=== PATIENT | female | born 1940 | race African-American/Black ===

== ENCOUNTER 2022-05-18 09:44 | Emergency (ER) | payer OTHER ==
[2022-05-18 11:19] LABS: Hematocrit 37.2 % (36.0-45.0); Lymphocytes % 26.5 % (15.3-44.8); MCV 93.6 fL (80-100); MPV 7.5 fL (7.6-11.3); RBC Red Blood Cell Count 3.97 M/uL (3.86-4.86)
--- NOTE | 2022-05-18 11:21 | RAD REPORT ---
EXAM DESCRIPTION: CT - Head C Spine Mpr Wo Con - 05/18/2022 11:12 am CLINICAL HISTORY: Head and neck injury status post fall. Head and neck pain COMPARISON: None. TECHNIQUE: Computed axial tomography of the head and cervical spine was obtained. Sagittal and coronal reconstruction was performed. All CT scans are performed using dose optimization technique as appropriate and may include automated exposure control or mA/KV adjustment according to patient size. 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 The ventricles are normal in caliber. An extra-axial fluid collect ion is not noted.Fluid within the visualized sinuses and mastoids is not seen A cervical fracture is not visualized. No dislocation is noted. IMPRESSION: No acute intracranial abnormality is seen. A cervical fracture is not visualized. If the patient continues to have symptoms to suggest intracra nial /spinal cord pathology then MRI would be recommended
[2022-05-18 11:39] LABS: Albumin 3.4 g/dL (3.4-5.0); Bilirubin Direct 0.1 mg/dL (0-0.2); Bilirubin Total 0.3 mg/dL (0.2-1.0); Potassium 3.8 mmol/L (3.5-5.1); Troponin High Sensitivity 18.1 pg/mL (<58.9)
--- NOTE | 2022-05-18 12:11 | RAD REPORT ---
EXAM DESCRIPTION: Kushal Single View05/18/2022 10:36 am CLINICAL HISTORY: Chest pain COMPARISON: none FINDINGS: 3 centimeter opacity overlies the medial right lung base The remainder of the lungs appear clear. Heart is normal size IMPRESSION: A 3 centimeter opacity overlies the medial right lung base. This may represent an infilt rate, mass or confluence of ribs and vessels. Further evaluation with an unenhanced CT chest would he lpful.
[2022-05-18] MEDS ORDERED: TETANUS & DIPHTHERIA TOX,ADULT 0.5 ML VIAL ONE (12:33)
--- NOTE | 2022-05-18 12:56 | RAD REPORT ---
EXAM DESCRIPTION: CT - Thorax Wo Con - 05/18/2022 12:35 pm CLINICAL HISTORY: Fall, 3 cm opacity right medial lung COMPARISON: Chest Single View dated 05/18/2022 TECHNIQUE: Axial 5 mm thick images of the chest were obtained without IV contrast. All CT scans are performed using dose optimization technique as appropriate and may include automated exposure control or mA/KV adjustment according to patient size. FINDINGS: Lung volumes are improved compared to the earlier portable study. The right lung base opac ification does not have a correlate on this examination and was probably atelectasis. There is no inf iltrate, mass or acute lung parenchymal process seen. No pleural thickening or pleural effusion. No p neumothorax. No abnormal mediastinal or hilar masses or lymphadenopathy seen. No gross aortic or pulmonary artery finding suspected. No cardiomegaly or pericardial effusion. Assessment is limited in the absence of I V contrast. No chest wall mass or abnormal axillary lymphadenopathy. No displaced rib fractures are present. No n ondisplaced rib fractures confirmed. No measurable contusion in the subcutaneous fatty tissues. Thoracic spine degenerative changes are present with no acute finding. No pathologic bone changes. Limited upper abdomen imaging shows no gross abnormality. IMPRESSION: No acute or suspicious lung parenchymal process. Medial right base finding on the earlie r chest film is believed to been atelectasis.
[2022-05-18] MEDS ORDERED: LIDOCAINE 1% MPF 5 ML VIAL ONE (13:59)
--- NOTE | 2022-05-18 14:44 | EDPHYS ---
Physician Documentation [facility] Name: Lizbeth Snow Age: 82 yrs Sex: Female : 1940 Arrival Date: 05/18/2022 Time: 09:54 Bed 19 Private MD: ED Physician Wyatt Sevilla HPI: 05/18 10:16 This 82 yrs old Black Female presents to ER via EMS with complaints of Fall Injury. pm1 10:16 Details of fall: The patient fell from an upright position, while standing, and struck pm1 Against the wall in the bathroom. Onset: The symptoms/episode began/occurred just prior to arrival. Associated injuries: The patient sustained injury to the head, laceration, of the left temporal area. Severity of symptoms: in the emergency department the symptoms have improved, Bleeding controlled with pressure dressing. It is unknown whether or not the patient has had similar symptoms in the past. The patient has not recently seen a physician. 82-year-old patient [facility] presents to the ER with complaints of laceration to left side of head. Patient was in the bathroom and apparently ambulating out with her walker after using the restroom. Patient fell and hit her head against the wall according to report from EMS. Patient with no known LOC. Patient without headache, neck pain, chest pain, shortness of breath. Patient also denies any pain. Historical: - Allergies: 10:00 PENICILLINS; bp - PMHx: 10:00 Congestive heart failure; Hypercholesterolemia; Depressive disorder; Dementia; Coronary bp atherosclerosis; Hypertensive disorder; - Immunization history: Last tetanus immunization: - up to date. - Social history:: Smoking status: Patient denies any tobacco usage or history of. ROS: 10:16 Constitutional: Negative for fever, chills, and weight loss, Neck: Negative for injury, pm1 pain, and swelling, Cardiovascular: Negative for chest pain, palpitations, and edema, Respiratory: Negative for shortness of breath, cough, wheezing, and pleuritic chest pain, Abdomen/GI: Negative for abdominal pain, nausea, vomiting, diarrhea, and constipation, Back: Negative for injury and pain, MS/Extremity: Negative for injury and deformity, Skin: Negative for injury, rash, and discoloration, Neuro: Negative for headache, weakness, numbness, tingling, and seizure. 10:16 All other systems are negative. Exam: 10:16 Constitutional: This is a well developed, well nourished patient who is awake, alert, pm1 and in no acute distress. 10:16 Back: No spinal tenderness. No costovertebral tenderness. Full range of motion. Skin: Warm, dry with normal turgor. Normal color with no rashes, no lesions, and no evidence of cellulitis. Injury as noted in head examination MS/ Extremity: Pulses equal, no cyanosis. Neurovascular intact. Full, normal range of motion. 10:16 Head/face: Noted is no obvious of injury or deformity except a laceration(s), of the left temporal area. 10:16 Eyes: Exam is negative for acute changes, Periorbital structures: no acute changes, Pupils: no acute changes, Extraocular movements: no acute changes, Conjunctiva: no acute changes, no injection. 10:16 ENT: Exam is negative for acute changes, External ear(s): no acute changes, Ear canal(s): no acute changes, TM's: no acute changes, Mouth: no acute changes, Lips: normal, moist, Oral mucosa: normal, pink and intact, moist. 10:16 Neck: Exam negative for acute changes, External neck: tenderness, is not appreciated, ROM/movement: is normal. 10:16 Chest/axilla: Exam negative for acute changes, Inspection: normal, Palpation: is normal, no tenderness. 10:16 Cardiovascular: Exam negative for acute changes, Rate: tachycardic, actual rate is 58 bpm, Rhythm: regular, Pulses: no pulse deficits are appreciated, Edema: is not appreciated. 10:16 Respiratory: Exam negative for acute changes, the patient does not display signs of respiratory distress, Respirations: normal, Breath sounds: are clear throughout. 10:16 Abdomen/GI: Exam negative for acute changes, Inspection: abdomen appears normal, Palpation: abdomen is soft and non-tender, in all quadrants. 10:16 Neuro: Exam negative for acute changes, Orientation: to person, Baseline according to EMS report. Mentation: is normal, Motor: moves all fours. Vital Signs: 09:55 BP 170 / 98; Pulse 58; Resp 16; Temp 98; Pulse Ox 100% ; bp 11:00 BP 187 / 77; Pulse 57; Resp 16; Pulse Ox 99% ; bp 12:30 BP 181 / 64; Pulse 55; Resp 16; Pulse Ox 99% ; bp 14:00 BP 191 / 64; Pulse 59; Resp 16; Pulse Ox 100% ; bp [place] Coma Score: 09:55 Eye Response: spontaneous(4). Verbal Response: confused(4). Motor Response: obeys bp commands(6). Total: 14. Trauma Score (Adult): 09:55 Eye Response: spontaneous(1); Verbal Response: confused(1); Motor Response: obeys bp commands(2); Systolic BP: > 89 mm Hg(4); Respiratory Rate: 10 to 29 per min(4); [place] Score: 14; Trauma Score: 12 MDM: 09:57 Patient medically screened. pm1 14:42 Data reviewed: vital signs. Data interpreted: Pulse oximetry: on room air is 100 %. pm1 Interpretation: normal. Counseling: I had a detailed discussion with the patient and/or guardian regarding: the historical points, exam findings, and any diagnostic results supporting the discharge/admit diagnosis, lab results, radiology results, the need for outpatient follow up, to return to the emergency department if symptoms worsen or persist or if there are any questions or concerns that arise at home. 05/18 10:07 Order name: Basic Metabolic Panel; Complete Time: 11:47 pm05/18 10:07 Order name: CBC with Diff; Complete Time: 11:47 pm05/18 10:07 Order name: CT Head C Spine; Complete Time: 11:47 pm05/18 10:07 Order name: LFT's; Complete Time: 11:47 pm05/18 10:07 Order name: NT PRO-BNP; Complete Time: 11:47 pm05/18 10:07 Order name: Troponin HS; Complete Time: 11:47 pm05/18 10:07 Order name: XRAY Chest (1 view); Complete Time: 12:11 pm05/18 10:07 Order name: EKG; Complete Time: 10:08 pm05/18 10:07 Order name: Cardiac monitoring; Complete Time: 11:02 pm05/18 10:07 Order name: EKG - Nurse/Tech; Complete Time: 11:59 pm05/18 10:07 Order name: IV Saline Lock; Complete Time: 11:02 pm05/18 12:14 Order name: CT Chest Wo Con; Complete Time: 13:19 pm1 05/18 10:07 Order name: Labs collected and sent; Complete Time: 11:02 pm1 Administered Medications: 12:30 Drug: Tetanus-Diphtheria Toxoid Adult 0.5 ml {Account Manager Trainee: [employer]. Exp: bp 01/29/2024. Lot #: [id number]. } Route: IM; Site: right deltoid; 13:54 Follow up: Response: No adverse reaction bp 13:54 Drug: Lidocaine (1 %) 5 ml Volume: 5 ml; Route: Infiltration; bp Disposition Summary: 05/18/22 14:43 Discharge Ordered Location: Home pm1 Problem: new pm1 Symptoms: have improved pm1 Condition: Stable pm1 Diagnosis - Laceration without foreign body of scalp pm1 - Fall on same level, unspecified pm1 Followup: pm1 - With: Emergency Department - When: As needed - Reason: Worsening of condition Followup: pm1 - With: Private Physician - When: 2 - 3 days - Reason: Recheck today's complaints, Continuance of care, Re-evaluation by your physician Discharge Instructions: - Discharge Summary Sheet pm1 - Fall Prevention in the Home, Adult pm1 - Laceration Care, Adult pm1 Forms: - Medication Reconciliation Form pm1 - Thank You Letter pm1 - Family Work Release em1 - Antibiotic Education pm1 - Prescription Opioid Use pm1 Signatures: Dispatcher [employer] EDMS Tray Jarrell, ROSIE INFORMATION BROKER pm1 Nicholas Gonzalez, RN RN bp Corrections: (The following items were deleted from the chart) 10:01 10:00 Allergies: No Known Allergies; bp bp 10:01 10:00 PMHx: None; bp bp
--- NOTE | 2022-05-18 14:44 | ER ---
Nurse's Notes [facility] Name: Lizbeth Snow Age: 82 yrs Sex: Female : 1940 Arrival Date: 05/18/2022 Time: 09:54 Bed 19 Private MD: Diagnosis: Laceration without foreign body of scalp;Fall on same level, unspecified Presentation: 05/18 09:55 Chief complaint: EMS states: UNWITNESSED FALL IN BATHROOM AT RETIREMENT. Care prior bp to arrival: None. Mechanism of Injury: Fall from standing position. Trauma event details: Injury occurred in the [facility], Injury occurred: RETIREMENT Injury occurred: May 18, 2022 Injury occurred at: 09:00. 09:55 Acuity: DREW 3 bp 09:55 Method Of Arrival: EMS: [facility] bp 09:59 Coronavirus screen: At this time, the client does not indicate any symptoms associated bp with coronavirus-19. Ebola Screen: No symptoms or risks identified at this time. Initial Sepsis Screen: Does the patient meet any 2 criteria? No. Patient's initial sepsis screen is negative. Does the patient have a suspected source of infection? No. Patient's initial sepsis screen is negative. Risk Assessment: Do you want to hurt yourself or someone else? Patient reports no desire to harm self or others. Onset of symptoms was May 18, 2022 at 09:00. Trauma Activation: Not Applicable Physician: ED Physician; Name: ; Notified At: ; Arrived At: Physician: General Surgeon; Name: ; Notified At: ; Arrived At: Physician: Radiology; Name: ; Notified At: ; Arrived At: Physician: Respiratory; Name: ; Notified At: ; Arrived At: Physician: Lab; Name: ; Notified At: ; Arrived At: Historical: - Allergies: 10:00 PENICILLINS; bp - PMHx: 10:00 Congestive heart failure; Hypercholesterolemia; Depressive disorder; Dementia; Coronary bp atherosclerosis; Hypertensive disorder; - Immunization history: Last tetanus immunization: - up to date. - Social history:: Smoking status: Patient denies any tobacco usage or history of. Screenin:55 Abuse screen: Denies threats or abuse. Denies injuries from another. Tuberculosis bp screening: No symptoms or risk factors identified. 10:01 Nutritional screening: No deficits noted. Fall Risk None identified. bp Primary Survey: 09:55 NO uncontrolled hemorrhage observed. A: The client is alert. Airway: patent, No bp supplemental oxygen in use on arrival. Breathing/Chest: Respiratory effort: spontaneous, unlabored, Breath sounds: clear, bilaterally. Respiratory pattern: regular. Circulation: Skin color: pink, Skin temperature: warm. Disability Client is alert. Exposure/Environment: There is no evidence of uncontrolled external bleeding. Obvious injury(ies) are noted at this time: LEFT SCALP ABRASION. 15:18 Reassessment Breathing: Spontaneous respiratory effort, equal unlabored respirations, bp breath sounds clear bilaterally, regular pattern with symmetrical chest rise and fall. Assessment: 09:55 General: Appears in no apparent distress. Behavior is calm, cooperative. Pain: Denies bp pain. Neuro: Level of Consciousness is awake, obeys commands, confused, Oriented to person, place. EENT: No deficits noted. Cardiovascular: No deficits noted. Respiratory: No deficits noted. GI: No signs and/or symptoms were reported involving the gastrointestinal system. : No signs and/or symptoms were reported regarding the genitourinary system. Derm: No deficits noted. Musculoskeletal: No deficits noted. Injury Description: Abrasion sustained to scalp. 12:30 Reassessment: No changes from previously documented assessment. Patient and/or family bp updated on plan of care and expected duration. Pain level reassessed. PT RETURNED FROM CT. 14:16 Reassessment: ALL STUDIES COMPLETE, LAC REPAIR PENDING. bp 15:17 Reassessment: PT DC WITH FAMILY. bp Vital Signs: 09:55 BP 170 / 98; Pulse 58; Resp 16; Temp 98; Pulse Ox 100% ; bp 11:00 BP 187 / 77; Pulse 57; Resp 16; Pulse Ox 99% ; bp 12:30 BP 181 / 64; Pulse 55; Resp 16; Pulse Ox 99% ; bp 14:00 BP 191 / 64; Pulse 59; Resp 16; Pulse Ox 100% ; bp [place] Coma Score: 09:55 Eye Response: spontaneous(4). Verbal Response: confused(4). Motor Response: obeys bp commands(6). Total: 14. Trauma Score (Adult): 09:55 Eye Response: spontaneous(1); Verbal Response: confused(1); Motor Response: obeys bp commands(2); Systolic BP: > 89 mm Hg(4); Respiratory Rate: 10 to 29 per min(4); [place] Score: 14; Trauma Score: 12 ED Course: 09:54 Patient arrived in ED. bp 09:55 Patient has correct armband on for positive identification. Bed in low position. Call bp light in reach. Side rails up X2. 09:55 Patient maintains SpO2 saturation greater than 95% on room air. Thermoregulation: warm bp blanket given to patient. 09:56 Triage completed. bp 09:57 Tray Jarrell NP is PHCP. pm1 09:57 Wyatt Sevilla MD is Attending Physician. pm1 10:00 Arm band placed on. bp 10:36 Nicholas Gonzalez, SHANNON is Primary Nurse. bp 10:37 XRAY Chest (1 view) In Process Unspecified. EDMS 11:00 Inserted saline lock: 22 gauge in right forearm, using aseptic technique. Blood bp collected. 11:14 CT Head C Spine In Process Unspecified. EDMS 12:37 CT Chest Wo Con In Process Unspecified. EDMS 15:17 Assist provider with laceration repair on scalp that was 2.5 cm. or less using alexandra. bp Set up tray. Performed by Tray Jarrell INTRUSION ANALYST Dressed with 4X4s, Patient tolerated well. IV discontinued, intact, bleeding controlled, No redness/swelling at site. Pressure dressing applied. Administered Medications: 12:30 Drug: Tetanus-Diphtheria Toxoid Adult 0.5 ml {Church Worker: [employer]. Exp: bp 01/29/2024. Lot #: [id number]. } Route: IM; Site: right deltoid; 13:54 Follow up: Response: No adverse reaction bp 13:54 Drug: Lidocaine (1 %) 5 ml Volume: 5 ml; Route: Infiltration; bp Medication: 10:01 VIS not applicable for this client. bp Intake: 09:55 PO: 0ml; Total: 0ml. bp Outcome: 14:43 Discharge ordered by . pm1 15:17 Discharged to home via wheelchair, with family. bp 15:17 Condition: stable 15:17 Discharge instructions given to patient, family, Instructed on discharge instructions, follow up and referral plans. wound care, Demonstrated understanding of instructions, follow-up care, wound care. 15:18 Patient's length of stay was not longer than 2 hours. bp 15:19 Patient left the ED. bp Signatures: Dispatcher [employer] EDMS Tray Jarrell, INTRUSION ANALYST INTRUSION ANALYST pm1 Nicholas Gonzalez, RN RN bp Corrections: (The following items were deleted from the chart) : 10:00 Allergies: No Known Allergies; bp bp 10: 10:00 PMHx: None; bp bp
[2022-05-18 15:29] VITALS: TEMP 98
[2022-05-18 15:34] VITALS: BP 191/64; O2SAT 100
--- NOTE | 2022-05-19 13:07 | EKG ---
Test Date: 2022-05-18 Test Time: 11:56:35 [place] Equipment Repairer: BP MEASUREMENT RESULTS: Intervals: Rate: 57 MT: 164 QRSD: 86 QT: 424 QTc: 412 [place]: P: 53 MT: 164 QRS: -21 T: -2 INTERPRETIVE STATEMENTS: Sinus bradycardia Voltage criteria for left ventricular hypertrophy Nonspecific T wave abnormality Abnormal ECG No previous ECG available for comparison Electronically Signed On 05-19-22 13:05:45 CDT by Delvin Mendoza
== END 2022-05-18 15:19 | disposition home or self-care (01) ==
LOC: ER 09:44
PROC: 0JQ00ZZ Repair Scalp Subcutaneous Tissue and Fascia, Open Approach (ICD-10-PCS; principal; 2022-05-18)
DX: S01.01XA Laceration without foreign body of scalp, initial encounter (principal); W18.30XA Fall on same level, unspecified, initial encounter; Z23 Encounter for immunization; I10 Essential (primary) hypertension; I50.9 Heart failure, unspecified; F03.90 Unspecified dementia, unspecified severity, without behavioral disturbance, psychotic disturbance, mood disturbance, and anxiety; Z88.0 Allergy status to penicillin
CPT/HCPCS: 36415; 70450; 71045; 71250; 72125; 80048; 80076; 83880; 84484; 85025; 90714; 93005

== ENCOUNTER 2022-09-29 20:42 | Emergency (ER) | payer OTHER ==
[2022-09-29] MEDS ORDERED: TETANUS & DIPHTHERIA TOX,ADULT 0.5 ML VIAL ONE (21:04)
[2022-09-29] MEDS ORDERED: LIDOCAINE 1% MPF 5 ML VIAL ONE (21:04)
--- NOTE | 2022-09-29 21:38 | RAD REPORT ---
EXAM DESCRIPTION: CT - Head C Spine Mpr Wo Con - 09/29/2022 9:17 pm CLINICAL HISTORY: Head and neck injury status post fall. Head and neck pain COMPARISON: May 2022 TECHNIQUE: Computed axial tomography of the head and cervical spine was obtained. Sagittal and coronal reconstruction was performed. All CT scans are performed using dose optimization technique as appropriate and may include automated exposure control or mA/KV adjustment according to patient size. 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 Left frontal scalp swelling. An intracranial bleed is not seen. The ventricles are normal in caliber. An extra-axial fluid collect ion is not noted.Fluid within the visualized sinuses and mastoids is not seen A cervical fracture is not visualized. No dislocation is noted. Slight posterior subluxation C3 on C4. Small central disc herniation C3-4. Spondylosis cervical spine . Thyroid goiter. IMPRESSION: No acute intracranial abnormality is seen. A cervical fracture is not visualized. If the patient continues to have symptoms to suggest intracranial /spinal cord pathology then MRI wou ld be recommended
--- NOTE | 2022-09-29 23:00 | EDPHYS ---
Physician Documentation [facility] Name: Lizbeth Snow Age: 82 yrs Sex: Female : 1940 Arrival Date: 09/29/2022 Time: 20:47 Bed 19 Private MD: ED Physician Elias Cabral HPI: 09/29 21:09 This 82 yrs old Black Female presents to ER via EMS with complaints of Fall Injury. pm1 21:09 Details of fall: The patient fell from a height, bed. Onset: The symptoms/episode pm1 began/occurred just prior to arrival. Associated injuries: The patient sustained injury to the head, contusion, laceration, of the forehead. It is unknown whether or not the patient has had similar symptoms in the past. The patient has not recently seen a physician. Patient rolled out of bed in [facility] resulting in laceration and contusion to forehead. Patient is at baseline mentation per EMS from [facility] . Historical: - Allergies: 21:00 PENICILLINS; as6 - PMHx: 21:00 Congestive heart failure; coronary atherosclerosis; Dementia; depressive disorder; as6 Hypercholesterolemia; Hypertensive disorder; - Immunization history:: Adult Immunizations up to date. - Social history:: Smoking status: Patient denies any tobacco usage or history of. - Immunization history: Last tetanus immunization: unknown. ROS: 21:09 Constitutional: Negative for fever, chills, and weight loss, Cardiovascular: Negative pm1 for chest pain, palpitations, and edema, Respiratory: Negative for shortness of breath, cough, wheezing, and pleuritic chest pain, MS/Extremity: Negative for injury and deformity. 21:09 Neuro: Negative for headache, weakness, numbness, tingling, and seizure. 21:09 Skin: Positive for laceration(s), swelling, of the forehead. 21:09 All other systems are negative. Exam: 21:09 Constitutional: This is a well developed, well nourished patient who is awake, alert, pm1 and in no acute distress. 21:09 MS/ Extremity: Pulses equal, no cyanosis. Neurovascular intact. Full, normal range of motion. 21:09 Head/face: Noted is no obvious of injury or deformity except contusion, that is superficial, of the forehead, a laceration(s), 2 cm(s), of the forehead. 21:09 Eyes: Exam is negative for acute changes. 21:09 ENT: Exam is negative for acute changes, External ear(s): no acute changes, Ear canal(s): no acute changes, TM's: no acute changes. 21:09 Neck: Exam negative for acute changes, C-spine: vertebral tenderness, is not appreciated. 21:09 Cardiovascular: Exam negative for acute changes, Rate: normal, Rhythm: regular, Pulses: no pulse deficits are appreciated, Edema: is not appreciated. 21:09 Respiratory: Exam negative for acute changes, respiratory distress, shortness of breath. 21:09 Abdomen/GI: Inspection: abdomen appears normal, Palpation: abdomen is soft and non-tender, in all quadrants. 21:09 Skin: Appearance: normal except for affected area, injury, contusion(s), that are superficial, of the forehead, laceration(s), the wound is approximately 2 cm(s), of the forehead, that can be described as clean, no foreign body, irregular, without bleeding. 21:09 Neuro: Exam negative for acute changes. Vital Signs: 21:10 BP 140 / 40; Pulse 78; Resp 16 S; Temp 97.9; Pulse Ox 99% on R/A; Weight 72.57 kg; as6 Height 5 ft. 6 in. (167.64 cm); 21:57 BP 139 / 47; Pulse 77; Resp 18 S; Pulse Ox 99% on R/A; as6 23:00 BP 145 / 56; Pulse 78; Resp 16 S; Pulse Ox 100% on R/A; as6 21:10 Body Mass Index 25.82 (72.57 kg, 167.64 cm) as6 [place] Coma Score: 21:11 Eye Response: to voice(3). Verbal Response: confused(4). Motor Response: obeys as6 commands(6). Total: 13. Trauma Score (Adult): 21:11 Eye Response: to voice(0); Verbal Response: confused(1); Motor Response: obeys as6 commands(2); Systolic BP: > 89 mm Hg(4); Respiratory Rate: 10 to 29 per min(4); [place] Score: 13; Trauma Score: 11 Laceration: 22:58 Wound Repair of 2cm ( 0.8in ) subcutaneous laceration to forehead. Irregularly shaped.. pm1 Distal neuro/vascular/tendon intact. Anesthesia: Local anesthetic administered with 3 mls of 1% lidocaine. Wound prep: Extensive cleansing with hibiclenz by nurse, Wound irrigation with saline by nurse, Wound explored extensively, Copious irrigation. Skin closed with 5 5-0 Prolene using simple sutures and sterile technique. Dressed with 4x4's, Kerlix. Patient tolerated well. MDM: 20:48 Patient medically screened. pm1 22:58 Data reviewed: vital signs. Data interpreted: Pulse oximetry: on room air is 99 %. pm1 Interpretation: normal. 23:02 Counseling: I had a detailed discussion with the patient and/or guardian regarding: No pm1 primary contact present on transfer paper work and shown to the RN. Requested her to inform the [facility] of the results and report to the PCP and family. 09/29 21:15 Order name: Head C Spine Mpr Wo Con; Complete Time: 22:01 EDMS 09/29 20:48 Order name: Dressing - Wound; Complete Time: 23:28 pm1 09/29 20:48 Order name: Gloves, Sterile; Complete Time: 21:09 pm1 09/29 20:48 Order name: Prolene, Sutures; Complete Time: 22:57 pm1 09/29 20:48 Order name: Setup Suture Tray; Complete Time: 21:09 pm1 Administered Medications: 21:09 Drug: Tetanus-Diphtheria Toxoid Adult 0.5 ml {Credit Portfolio Manager: [employer]. Exp: as6 03/11/2024. Lot #: [id number]. } Route: IM; Site: right deltoid; 23:08 Follow up: Response: No adverse reaction as6 22:56 Drug: Lidocaine (1 %) 5 ml {Note: administered by provider .} Volume: 5 ml; Route: as6 Infiltration; 23:08 Follow up: Response: No adverse reaction as6 Disposition: 09/30 03:15 Co-signature as Attending Physician, Elias Cabral MD. rn Disposition Summary: 09/29/22 22:59 Discharge Ordered Location: Home pm1 Problem: new pm1 Symptoms: have improved pm1 Condition: Stable pm1 Diagnosis - Fall from bed, initial encounter pm1 - Laceration without foreign body of scalp pm1 Followup: pm1 - With: Emergency Department - When: As needed - Reason: Worsening of condition Followup: pm1 - With: Private Physician - When: 2 - 3 days - Reason: Recheck today's complaints, Continuance of care, Re-evaluation by your physician Discharge Instructions: - Discharge Summary Sheet pm1 - Facial Laceration pm1 - Fall Prevention in Hospitals, Adult pm1 Forms: - Medication Reconciliation Form pm1 - Thank You Letter pm1 - Antibiotic Education pm1 - Prescription Opioid Use pm1 Signatures: Dispatcher [employer] EDMS Elias Cabral MD MD rn Marinas, Patrick, NP TUBE FILLER pm1 Jose Luis Elder RN RN as6
--- NOTE | 2022-09-29 23:00 | ER ---
Nurse's Notes [facility] Name: Lizbeth Snow Age: 82 yrs Sex: Female : 1940 Arrival Date: 09/29/2022 Time: 20:47 Bed 19 Private MD: Diagnosis: Fall from bed, initial encounter;Laceration without foreign body of scalp Presentation: 09/29 20:52 Chief complaint: EMS states: patient rolled out of bed at the long-term. Care prior kr3 to arrival:. Care prior to arrival: None. Mechanism of Injury: Fall. Trauma event details: Injury occurred in the [facility], Injury occurred: in an institution. 20:52 Acuity: DREW 3 kr3 20:52 Method Of Arrival: EMS kr3 21:12 Coronavirus screen: At this time, the client does not indicate any symptoms associated as6 with coronavirus-19. Ebola Screen: No symptoms or risks identified at this time. Initial Sepsis Screen: Does the patient meet any 2 criteria? No. Patient's initial sepsis screen is negative. Does the patient have a suspected source of infection? No. Patient's initial sepsis screen is negative. Risk Assessment: Do you want to hurt yourself or someone else? Patient reports no desire to harm self or others. Onset of symptoms was September 29, 2022. Trauma Activation: Alert Physician: ED Physician; Name: ; Notified At: ; Arrived At: Physician: General Surgeon; Name: ; Notified At: ; Arrived At: Physician: Radiology; Name: ; Notified At: ; Arrived At: Physician: Respiratory; Name: ; Notified At: ; Arrived At: Physician: Lab; Name: ; Notified At: ; Arrived At: Historical: - Allergies: 21:00 PENICILLINS; as6 - PMHx: 21:00 Congestive heart failure; coronary atherosclerosis; Dementia; depressive disorder; as6 Hypercholesterolemia; Hypertensive disorder; - Immunization history:: Adult Immunizations up to date. - Social history:: Smoking status: Patient denies any tobacco usage or history of. - Immunization history: Last tetanus immunization: unknown. Screenin:11 Abuse screen: Denies threats or abuse. Denies injuries from another. Nutritional as6 screening: No deficits noted. Tuberculosis screening: No symptoms or risk factors identified. Fall Risk Fall in past 12 months (25 points). Total Pelletier Fall Scale indicates Low Risk Score (25-44 pts). Side Rails Up X 2. Primary Survey: 20:55 NO uncontrolled hemorrhage observed. Breathing/Chest: Spontaneous respiratory effort, kr3 equal unlabored respirations, breath sounds clear bilaterally, regular pattern, symmetrical chest rise and fall. Circulation: No external hemorrhage present. Regular and strong central pulse, skin warm/dry/normal color. Disability Client is alert. 21:13 Exposure/Environment: A warming method has been applied: A warm blanket has been as6 provided to the patient. Reassessment Alertness and Airway: Awake and alert. The airway is patent. Breathing: Spontaneous respiratory effort, equal unlabored respirations, breath sounds clear bilaterally, regular pattern with symmetrical chest rise and fall. Circulation: No external hemorrhage noted. Regular and strong central pulse, skin warm/dry/normal color. Disability: Pupils Pupils are equal, round, reactive to light and accomodation. Alert. Assessment: 20:53 General: Appears in no apparent distress. comfortable, Behavior is calm, cooperative. kr3 Pain: Unable to use pain scale. Does not appear to understand pain scale. Neuro: Level of Consciousness is awake, alert. EENT: No signs and/or symptoms were reported regarding the EENT system. Cardiovascular: Patient's skin is warm and dry. Respiratory: Airway is patent Respiratory effort is even, unlabored, Respiratory pattern is regular, symmetrical. GI: No signs and/or symptoms were reported involving the gastrointestinal system. : No signs and/or symptoms were reported regarding the genitourinary system. 21:10 Derm: Wound noted forehead Wound is laceration. as6 21:21 Neuro: Level of Consciousness is Oriented to person, pt at baseline per EMS and nursing as6 home nurse . 21:58 Reassessment: Patient appears in no apparent distress at this time. as6 23:06 General: discharge pending transportation. report given to SHANITA Brooks from [facility] long-term. Nurse said transportation would be arranged . Vital Signs: 21:10 BP 140 / 40; Pulse 78; Resp 16 S; Temp 97.9; Pulse Ox 99% on R/A; Weight 72.57 kg; as6 Height 5 ft. 6 in. (167.64 cm); 21:57 BP 139 / 47; Pulse 77; Resp 18 S; Pulse Ox 99% on R/A; as6 23:00 BP 145 / 56; Pulse 78; Resp 16 S; Pulse Ox 100% on R/A; as6 21:10 Body Mass Index 25.82 (72.57 kg, 167.64 cm) as6 Laney Coma Score: 21:11 Eye Response: to voice(3). Verbal Response: confused(4). Motor Response: obeys as6 commands(6). Total: 13. Trauma Score (Adult): 21:11 Eye Response: to voice(0); Verbal Response: confused(1); Motor Response: obeys as6 commands(2); Systolic BP: > 89 mm Hg(4); Respiratory Rate: 10 to 29 per min(4); [place] Score: 13; Trauma Score: 11 ED Course: 20:47 Patient arrived in ED. wm 20:47 Tray Jarrell NP is PHCP. pm1 20:47 Elias Cabral MD is Attending Physician. pm1 20:53 Triage completed. kr3 20:59 Jose Luis Elder, SHANNON is Primary Nurse. as6 21:00 Arm band placed on. as6 21:12 Placed in gown. Bed in low position. Call light in reach. Side rails up X2. as6 21:13 Patient maintains SpO2 saturation greater than 95% on room air. as6 21:13 Thermoregulation: warm blanket given to patient. as6 21:19 Head C Spine Mpr Wo Con In Process Unspecified. EDMS 22:57 Assist provider with laceration repair on forehead that was between 2.6 to 7.5 cm using as6 sutures. Set up tray. Performed by Tray Jarrell CLOCKMAKER Dressed with 4X4s, Patient tolerated well. Wound care: to laceration located on forehead was cleaned with soap and water. 23:08 Patient did not have IV access during this emergency room visit. as6 Administered Medications: 21:09 Drug: Tetanus-Diphtheria Toxoid Adult 0.5 ml {Rn Admission: [employer]. Exp: as6 03/11/2024. Lot #: [id number]. } Route: IM; Site: right deltoid; 23:08 Follow up: Response: No adverse reaction as6 22:56 Drug: Lidocaine (1 %) 5 ml {Note: administered by provider .} Volume: 5 ml; Route: as6 Infiltration; 23:08 Follow up: Response: No adverse reaction as6 Medication: 21:12 Vaccine Information Statement (VIS) provided today. Questions and/or concerns as6 addressed. VIS edition date: June 11, 2021. Intake: 21:13 PO: 0ml; Total: 0ml. as6 Outcome: 22:59 Discharge ordered by . pm1 23:07 Discharged to long-term. as6 23:07 Condition: stable 23:07 Patient's length of stay in the Emergency Department was greater than 2 hours. pending transportation back to long-term Patient's length of stay extended due to 23:28 Discharge instructions given to long-term, EMS, Instructed on discharge as6 instructions, follow up and referral plans. wound care, Demonstrated understanding of instructions, follow-up care, wound care. 23:28 Patient left the ED. as6 Signatures: Dispatcher [employer] EDMS Tray Jarrell NP CLOCKMAKER pm1 Marybeth Crews Ashby, RN RN as6 Charis Patrick RN RN kr3
[2022-09-29 23:33] VITALS: TEMP 97.9
[2022-09-29 23:35] VITALS: BP 145/56; O2SAT 100
== END 2022-09-29 23:28 | disposition home or self-care (01) ==
LOC: ER 20:42
PROC: 0JQ00ZZ Repair Scalp Subcutaneous Tissue and Fascia, Open Approach (ICD-10-PCS; principal; 2022-09-29)
DX: S01.01XA Laceration without foreign body of scalp, initial encounter (principal); W06.XXXA Fall from bed, initial encounter; Z23 Encounter for immunization; Z88.0 Allergy status to penicillin; I10 Essential (primary) hypertension; F03.90 Unspecified dementia, unspecified severity, without behavioral disturbance, psychotic disturbance, mood disturbance, and anxiety
CPT/HCPCS: 70450; 72125; 90471; 90714; 99284; 12001; J2001

== ENCOUNTER 2022-11-21 22:03 | Inpatient (IN) | payer OTHER ==
--- NOTE | 2022-11-21 22:33 | RAD REPORT ---
EXAM DESCRIPTION: RAD - Pelvis - 11/21/2022 10:26 pm CLINICAL HISTORY: fall COMPARISON: No comparisons FINDINGS: Mildly impacted subcapital fracture of the proximal left femur is seen. Large calcified fi broids in the pelvis. No dislocation. IMPRESSION: Subcapital fracture proximal left femur.
--- NOTE | 2022-11-21 22:33 | RAD REPORT ---
EXAM DESCRIPTION: RAD - Chest Single View - 11/21/2022 10:26 pm CLINICAL HISTORY: fall Chest pain. COMPARISON: Chest Single View dated 05/18/2022 FINDINGS: Portable technique limits examination quality. The lungs are grossly clear. The heart is normal in size. No displaced fractures. IMPRESSION: No acute intrathoracic process suspected.
--- NOTE | 2022-11-21 22:34 | RAD REPORT ---
EXAM DESCRIPTION: RAD - Hip Left 2 View - 11/21/2022 10:26 pm CLINICAL HISTORY: fall COMPARISON: No comparisons FINDINGS: Subcapital fracture is seen of the proximal left femur with varus angulation. No dislocati on evident.
[2022-11-21] MEDS ORDERED: MORPHINE 2 MG/ML SYR ONE (22:52)
[2022-11-21 23:12] LABS: Absolute Lymphocytes (CBC) 0.5 K/uL (0.7-4.9); Hematocrit 38.1 % (36.0-45.0); Lymphocytes % 4.6 % (15.3-44.8); MCV 93.2 fL (80-100); MPV 7.7 fL (7.6-11.3); Protime INR 1.04; RBC Red Blood Cell Count 4.09 M/uL (3.86-4.86)
[2022-11-21 23:24] LABS: Magnesium 1.8 mg/dL (1.6-2.4); Potassium 3.6 mmol/L (3.5-5.1)
[2022-11-21 23:25] LABS: SARS-CoV-2 Antigen Rapid Res Negative (Negative)
[2022-11-21 23:56] LABS: Blood Morphology Comment NOT SEEN (NOT SEEN); Platelet Estimate ADEQ
--- NOTE | 2022-11-22 00:12 | ER ---
Nurse's Notes [facility] Name: Lizbeth Snow Age: 82 yrs Sex: Female : 1940 Arrival Date: 11/21/2022 Time: 22:06 Bed 8 Private MD: Diagnosis: History of falling;Left Subcapital Hip Fracture Presentation: 11/21 22:09 Chief complaint: EMS states: Toned out for fall, EMS states staff reports a hairline ll3 fracture to left hip after doing an X-ray at the facility [employer]. Coronavirus screen: Vaccine status: At this time, the client does not indicate any symptoms associated with coronavirus-19. Ebola Screen: No symptoms or risks identified at this time. Initial Sepsis Screen: Does the patient meet any 2 criteria? No. Patient's initial sepsis screen is negative. Does the patient have a suspected source of infection? No. Patient's initial sepsis screen is negative. Risk Assessment: Do you want to hurt yourself or someone else? Patient reports no desire to harm self or others. Onset of symptoms was November 21, 2022. Mechanism of Injury: Fall. Transition of care: patient was received from another setting of care (long-term care facility), [facility]. 22:09 Method Of Arrival: EMS: [place] [id number] 22:09 Acuity: DREW 3 ll3 Triage Assessment: 22:15 General: Appears in no apparent distress. comfortable, Behavior is calm, cooperative. ll3 Pain: Unable to use pain scale. Neuro: Level of Consciousness is awake, obeys commands, Oriented to person. Derm: Skin is pink, warm \T\ dry. Injury Description: Fall. Historical: - Allergies: 22:15 PENICILLINS; ll3 - PMHx: 22:15 Congestive heart failure; coronary atherosclerosis; Dementia; depressive disorder; ll3 Hypercholesterolemia; Hypertensive disorder; - Social history:: Smoking status: unknown. Screenin:53 [facility] ED Fall Risk Assessment (Adult) History of falling in the last 3 months, kd3 including since admission Yes- single mechanical fall (1 pt) Confusion or Disorientation Yes (5 pts) Intoxicated or Sedated No (0 pts) Impaired Gait Yes (1 pt) Mobility Assist Device Used Yes (1 pt) Altered Elimination Yes (1 pt) Score/Fall Risk Level 3 or more points = High Risk Maintained a safe environment, Educated pt \T\ family on fall prevention, incl call for assistance when getting out of bed. Abuse screen: Denies threats or abuse. Denies injuries from another. Nutritional screening: No deficits noted. Tuberculosis screening: No symptoms or risk factors identified. Assessment: 23:30 General: Appears in no apparent distress. Behavior is calm. Neuro: Level of kd3 Consciousness is awake, obeys commands, Oriented to person. Respiratory: Airway is patent Trachea midline Respiratory effort is even, unlabored, Respiratory pattern is regular, symmetrical. GI: Stools are reported to be normal. 11/22 00:07 General: pt seen resting comfortably in bed . kd3 Vital Signs: 11/21 22:09 BP 170 / 60; Pulse 75; Resp 20; Temp 98.1(TE); Pulse Ox 99% on R/A; Weight 82.55 kg; ll3 Height 5 ft. 6 in. (167.64 cm); 23:29 BP 158 / 57; Pulse 71; Resp 19; Pulse Ox 99% on R/A; kd3 11/22 00:01 BP 157 / 52; Pulse 64; Resp 19; Pulse Ox 96% on R/A; kd3 01:36 BP 150 / 57; Pulse 67; Resp 20; Pulse Ox 96% on R/A; kd3 11/21 22:09 Body Mass Index 29.38 (82.55 kg, 167.64 cm) ll3 ED Course: 11/21 22:06 Patient arrived in ED. ll3 22:07 Wyatt Bai PA is PHCP. cp 22:07 Elias Cabral MD is Attending Physician. cp 22:11 Elisa Varela, SHANNON is Primary Nurse. kd3 22:15 Triage completed. ll3 22:15 Arm band placed on Patient placed in an exam room, on a stretcher, on alarm security or surveillance monitor, ll3 on pulse oximetry. 22:28 XRAY Chest (1 view) In Process Unspecified. EDMS 22:28 XRAY Pelvis In Process Unspecified. EDMS 22:28 XRAY Hip LEFT 2 view In Process Unspecified. EDMS 22:53 Placed in gown. Bed in low position. Call light in reach. kd3 22:53 PT-INR Sent. kd3 22:53 Magnesium Sent. kd3 22:53 CBC with Diff Sent. kd3 22:53 Basic Metabolic Panel Sent. kd3 22:53 SARS RAPID Sent. kd3 23:14 CT Traumagram (Head C Spine CAP wo con) In Process Unspecified. EDMS 23:25 Arrieta cath inserted, using sterile technique, 16 Fr., by la, balloon inflated, to ll3 gravity drainage, clamped. returned clear yellow urine. Patient tolerated well. 11/22 00:10 Cricket Vang MD is Hospitalizing Provider. cp 01:35 No provider procedures requiring assistance completed. Inserted saline lock: 20 gauge kd3 in right antecubital area, using aseptic technique. Blood collected. 01:36 Patient admitted, IV remains in place. kd3 Administered Medications: 11/21 22:54 Drug: morphine 2 mg Route: IVP; Infused Over: 4 mins; Site: right antecubital; ll3 11/22 01:36 Follow up: Response: No adverse reaction kd3 Medication: 11/21 22:53 VIS not applicable for this client. kd3 Outcome: 11/22 00:12 Decision to Hospitalize by Provider. cp 01:35 Admitted to Med/surg kd3 01:35 Condition: stable 01:35 Discharge instructions given to patient, Instructed on the need for admit, Demonstrated understanding of instructions, follow-up care. 02:16 Patient left the ED. kd3 Signatures: Dispatcher [employer] EDVT Wyatt Bai PA PA cp Loubet, Lynsea, RN RN 3 Elisa Varela RN RN kd3
--- NOTE | 2022-11-22 00:12 | EDPHYS ---
Physician Documentation [facility] Name: Lizbeth Snow Age: 82 yrs Sex: Female : 1940 Arrival Date: 11/21/2022 Time: 22:06 Bed 8 Private MD: ED Physician Elias Cabral HPI: 11/21 22:15 This 82 yrs old Black Female presents to ER via EMS with complaints of Fall. cp 22:15 Onset: The symptoms/episode began/occurred at an unknown time. Associated injuries: The cp patient sustained reported left hip. Unable to obtain HPI due to baseline dementia. Historical: - Allergies: 22:15 PENICILLINS; ll3 - PMHx: 22:15 Congestive heart failure; coronary atherosclerosis; Dementia; depressive disorder; ll3 Hypercholesterolemia; Hypertensive disorder; - Social history:: Smoking status: unknown. ROS: 22:20 Constitutional: Negative for fever. cp 22:20 Unable to obtain ROS due to baseline dementia. cp Exam: 22:25 Constitutional: The patient appears in no acute distress, alert, awake, cp non-diaphoretic, non-toxic, well developed, well nourished. 22:25 Head/Face: Normocephalic, atraumatic. cp 22:25 Eyes: Pupils: equal, round, and reactive to light and accomodation, Conjunctiva: normal, no exudate, no injection, Sclera: no appreciated abnormality, Lids and lashes: appear normal, bilaterally. 22:25 ENT: External ear(s): are unremarkable, Nose: is normal, Mouth: Lips: dry, Oral mucosa: moist, Posterior pharynx: Airway: no evidence of obstruction, patent. 22:25 Neck: C-spine: vertebral tenderness, is not appreciated, crepitus, is not appreciated, ROM/movement: is normal, is supple, no range of motions limitations, no nuchal rigidity. 22:25 Chest/axilla: Inspection: normal, Palpation: is normal, no crepitus, no tenderness. 22:25 Cardiovascular: Rate: normal, Rhythm: regular, Edema: is not appreciated, JVD: is not appreciated. 22:25 Respiratory: the patient does not display signs of respiratory distress, Respirations: normal, no use of accessory muscles, no retractions, labored breathing, is not present, Breath sounds: decreased breath sounds, are not appreciated, stridor, is not appreciated, wheezing: is not appreciated. 22:25 Abdomen/GI: Inspection: abdomen appears normal, Bowel sounds: active, all quadrants, Palpation: soft, in all quadrants, nontender, in all quadrants. 22:25 Musculoskeletal/extremity: Extremities: grossly normal except: noted in the left hip: deformity, tenderness, ROM: limited passive range of motion due to pain, in the left hip. 22:25 Neuro: Orientation: no acute changes, per EMS, Mentation: no acute changes, per EMS. 22:33 ECG was reviewed by the Attending Physician. cp Vital Signs: 22:09 BP 170 / 60; Pulse 75; Resp 20; Temp 98.1(TE); Pulse Ox 99% on R/A; Weight 82.55 kg; ll3 Height 5 ft. 6 in. (167.64 cm); 23:29 BP 158 / 57; Pulse 71; Resp 19; Pulse Ox 99% on R/A; kd3 11/22 00:01 BP 157 / 52; Pulse 64; Resp 19; Pulse Ox 96% on R/A; kd3 01:36 BP 150 / 57; Pulse 67; Resp 20; Pulse Ox 96% on R/A; kd3 11/21 22:09 Body Mass Index 29.38 (82.55 kg, 167.64 cm) ll3 MDM: 11/21 22:09 Patient medically screened. cp 11/22 00:15 ED course: msg left on voice mail of DR Crum for consult of left subcapital hip cp fracture. 00:15 Data reviewed: vital signs, nurses notes, lab test result(s), EKG, radiologic studies, cp plain films. 00:15 Consideration of Admission/Observation Patient was admitted/placed on observation. cp Management of patient was discussed with the following: Hospitalist: Shiraz Herman REPAIR WEAVER, will admit patient. Historians other than the Patient: EMS: provides history of presenting complaint. Care significantly affected by the following chronic conditions: Hypertension, Congestive Heart Failure, Dementia. Response to treatment: the patient's symptoms have mildly improved after treatment. 11/21 22:09 Order name: Basic Metabolic Panel; Complete Time: 00:12 cp 11/21 22:09 Order name: CBC with Diff; Complete Time: 00:12 cp 11/21 22:09 Order name: Magnesium; Complete Time: 00:12 cp 11/21 22:09 Order name: PT-INR; Complete Time: 00:12 cp 11/21 22:09 Order name: SARS RAPID; Complete Time: 00:12 la1 11/21 23:16 Order name: Manual Differential; Complete Time: 00:12 EDMS 11/21 22:09 Order name: XRAY Chest (1 view); Complete Time: 00:12 cp 11/21 22:09 Order name: XRAY Pelvis; Complete Time: 00:12 cp 11/21 22:09 Order name: XRAY Hip LEFT 2 view; Complete Time: 22:42 cp 11/22 00:14 Interpretation: Report reviewed. cp 11/21 22:09 Order name: EKG; Complete Time: 22:09 cp 11/21 22:09 Order name: Cardiac monitoring; Complete Time: 22:09 cp 11/21 22:09 Order name: EKG - Nurse/Tech; Complete Time: 22:53 cp 11/21 22:36 Order name: CT Traumagram (Head C Spine CAP wo con) cp 11/21 22:09 Order name: IV Saline Lock; Complete Time: 22:53 cp 11/21 22:09 Order name: Labs collected and sent; Complete Time: 22:53 cp 11/21 22:09 Order name: O2 Per Protocol; Complete Time: 22:09 cp 11/21 22:09 Order name: O2 Sat Monitoring; Complete Time: 22:09 cp 11/21 22:36 Order name: Arrieta; Complete Time: 23:25 cp EC/16 22:33 Rate is 79 beats/min. Rhythm is regular. OK interval is normal. QRS interval is normal. cp QT interval is normal. Interpreted by me. Reviewed by me. Administered Medications: 22:54 Drug: morphine 2 mg Route: IVP; Infused Over: 4 mins; Site: right antecubital; ll3 11/22 01:36 Follow up: Response: No adverse reaction kd3 Disposition: 00:13 Co-signature as Attending Physician, Elias Cabral MD I reviewed the patient's care rn provided by the Advanced Practice Provider and agree with the diagnosis and treatment plan. Disposition Summary: 11/22/22 00:12 Hospitalization Ordered Hospitalization Status: Inpatient Admission cp Provider: Cricket Vang cp Location: Telemetry/MedSurg (Inpatient) cp Condition: Stable cp Problem: new cp Symptoms: have improved cp Bed/Room Type: Standard cp Room Assignment: 211(11/22/22 01:09) mw Diagnosis - History of falling cp - Left Subcapital Hip Fracture cp Forms: - Medication Reconciliation Form cp - SBAR form cp Signatures: Dispatcher [employer] EDCherry Naik RN RN mw Elias Cabral MD MD rn Attema, Lee, SCALE ATTENDANT-C SCALE ATTENDANT-Omar1 Wyatt Bai PA PA cp Fernie Manuel RN RN ll3 Elisa Varela RN RN kd3 Corrections: (The following items were deleted from the chart) 01:09 00:12 cp mw
--- NOTE | 2022-11-22 01:07 | P.HP ---
Certification for Inpatient Patient admitted to: Inpatient With expected LOS: >2 Midnights Patient will require the following post-hospital care: None Practitioner: I am a practitioner with admitting privileges, knowledge of patient current condition, hospital course, and medical plan of care. Services: Services provided to patient in accordance with Admission requirements found in Title 42 Section 412.3 of the Code of Federal Regulations <Shiraz Herman - Last Filed: 11/22/22 01:02> Patient History Date of Service: 11/22/22 Reason for admission: Left hip fracture History of Present Illness: 82-year-old female with history of CAD, chronic combined systolic/diastolic congestive heart failure, hypertension, dementia presents emergency department after sustaining a fall at [facility] on 11/21/2022 around 7 PM. She was evaluated here in the emergency department her labs were unremarkable x-rays and CT head/neck/chest abdomen pelvis were only significant for left femoral basicervical neck fracture. Patient is oriented x1 at her baseline, seems to be resting comfortably. Will be admitted to the hospital for further evaluation and management of a left hip fracture. ED provider reached out to ortho while in ED. - Past Medical/Surgical History -: CHF -: CAD -: Hypertension -: Dementia -: Unable to obtain Psychosocial/ Personal History: Patient is a resident of [facility] - Family History Family History: Reviewed- Non-Contributory - Social History Smoking Status: Unknown if ever smoked Place of Residence: Care Home <Shiraz Herman - Last Filed: 11/22/22 01:02> Date of Service: 11/22/22 <Cricket Vang - Last Filed: 11/22/22 10:00> Allergies Penicillins Allergy (Verified 09/29/22 21:14) Itching Review of Systems is unable to be obtained <Shiraz Herman - Last Filed: 11/22/22 01:02> Physical Examination - Physical Exam General: Alert, In no apparent distress, Oriented x1, Demented, Confused HEENT: Atraumatic, PERRLA, Mucous membr. moist/pink, EOMI, Sclerae nonicteric Neck: Supple, 2+ carotid pulse no bruit, No LAD, Without JVD or thyroid abnormality Respiratory: Clear to auscultation bilaterally, Normal air movement Cardiovascular: No edema, Regular rate/rhythm, Normal S1 S2 Capillary refill: <2 Seconds Gastrointestinal: Normal bowel sounds, No tenderness Musculoskeletal: No tenderness Integumentary: No rashes Neurological: Normal speech, Sensation intact Lymphatics: No axilla or inguinal lymphadenopathy - Studies Laboratory Data (last 24 hrs) 11/21/22 22:48: PT 11.4, INR 1.04 11/21/22 22:48: WBC 9.90, Hgb 12.7, Hct 38.1, Plt Count 207 11/21/22 22:48: Sodium 142, Potassium 3.6, BUN 13, Creatinine 0.68, Glucose 135 H, Magnesium 1.8 <Shiraz Herman - Last Filed: 11/22/22 01:02> - Studies Laboratory Data (last 24 hrs) 11/21/22 22:48: PT 11.4, INR 1.04 11/21/22 22:48: WBC 9.90, Hgb 12.7, Hct 38.1, Plt Count 207 11/21/22 22:48: Sodium 142, Potassium 3.6, BUN 13, Creatinine 0.68, Glucose 135 H, Magnesium 1.8 <Cricket Vang - Last Filed: 11/22/22 10:00> Assessment and Plan - Plan Assessment: Left subcapital femoral fracture Chronic combined systolic/diastolic congestive heart failure History of CAD Hypertension Dementia Plan: Left subcapital femoral fracture: N.p.o., orthopedics consulted, as needed pain medications. SCDs in place. We will consult cardiology for clearance. Chronic combined systolic/diastolic congestive heart failure: No signs of overlo ad or active exacerbation, continue home medications, cardiology consult/echocardiogram for surgical clearance. History of CAD: Continue as above. Hypertension: Continue home meds Dementia: At baseline, continue home meds. DVT PPX: SCD Code status: Full Discharge Plan: Care Home Plan to discharge in: Greater than 2 days - Advance Directives Does patient have a Living Will: No Does patient have a Durable POA for Healthcare: No - Code Status/Comfort Care Code Status Assessed: Yes (Full code) Critical Care: No Time Spent Managing Pts Care (In Minutes): 55 <Shiraz Herman - Last Filed: 11/22/22 01:02> Physician Review: Patient Assessed, Agree with Above Assessment and Plan <Cricket Vang - Last Filed: 11/22/22 10:00>
[2022-11-22] MEDS ORDERED: ONDANSETRON 4 MG/2 ML VIAL IV PRN (02:06)
[2022-11-22 02:32] VITALS: BMI 27.3
[2022-11-22] MEDS ORDERED: MORPHINE 2 MG/ML SYR IV PRN (03:00)
[2022-11-22 06:53] LABS: Absolute Lymphocytes (CBC) 0.5 K/uL (0.7-4.9); Hematocrit 35.4 % (36.0-45.0); Lymphocytes % 4.8 % (15.3-44.8); MCV 93.6 fL (80-100); MPV 7.7 fL (7.6-11.3); RBC Red Blood Cell Count 3.78 M/uL (3.86-4.86)
[2022-11-22 07:09] LABS: Potassium 3.8 mmol/L (3.5-5.1)
--- NOTE | 2022-11-22 07:35 | EKG ---
Test Date: 2022-11-21 Test Time: 22:27:43 Radiotelephone Technical Operator: WAYLON MEASUREMENT RESULTS: Intervals: Rate: 79 SD: 160 QRSD: 80 QT: 394 QTc: 451 [place]: P: 48 SD: 160 QRS: -13 T: 22 INTERPRETIVE STATEMENTS: Sinus rhythm with occasional premature ventricular complexes Nonspecific ST and T wave abnormality Abnormal ECG Compared to ECG 05/18/2022 11:56:35 Ventricular premature complex(es) now present ST (T wave) deviation now present Sinus bradycardia no longer present Left ventricular hypertrophy no longer present T-wave abnormality no longer present Electronically Signed On 11-22-22 07:34:54 [employer] by Zechariah Mendiola
[2022-11-22 08:36] LABS: Blood Morphology Comment NOT SEEN (NOT SEEN); Platelet Estimate ADEQ; White Blood Cell Scan OK (OK)
--- NOTE | 2022-11-22 12:29 | RAD REPORT ---
EXAM DESCRIPTION: CT - Head C Spine Cap Wo Con - 11/22/2022 6:59 am CLINICAL HISTORY: 82 years, Female, fall COMPARISON: 09/29/2022. FINDINGS: Multiple transaxial tomograms of the brain were obtained from the base of the skull to the vertex without contrast. 2-D multiplanar reformats and the coronal and sagittal plane were performed and reviewed. Multiple axial CT images through the cervical spine were obtained at 2 mm slice thickness at 2 mm int erval reconstruction. In addition 2-D multiplanar reformats and the sagittal coronal plane were perfo rmed and reviewed. Multiple transaxial tomograms of the chest, abdomen and pelvis were performed from the lung bases to the symphysis pubis utilizing 5 mm slice thickness at 5 mm interval reconstruction, without administr ation of IV and oral contrast. This exam was performed according to our departmental dose-optimization protocol, which includes auto mated exposure control, adjustment of the mA and/or kV according to patient size and/or use of iterat noemi reconstruction technique. Some of the images are compromised by breathing motion artifact limiting diagnostic value. Indication the presence of bilateral upper activities within the [id number] imaging of the lower chest/upper abdomen demonstrate evaluation. CT brain: Brain parenchyma demonstrate mild prominence of the sulci and gyri are corresponding to mil d cerebral and cerebellar atrophy. There is minimal periventricular white matter changes of microvasc ular ischemia. There is no midline shift and/or mass effect. There is no evidence for acute intracran ial hemorrhage. Lateral ventricles and cisterns displace normal appearance. No intra or extra axi al fluid collections were seen. The calvarium is intact with no evidence for fracture. The visualized portions of the paranasal sinuses and orbits demonstrate to be clear. There is a superficial right f rontal skin thickening corresponding to most likely superficial side of contusion/injury. CT C-spine: The alignment vertebral bodies are normal. There is no evidence of fracture or subluxat ion. There is minimal degenerative disc disease with decreased intervertebral disc height, minimal an terior spondylosis and posterior osteophyte complex at C5/C6 and C6/C7. The spinal canal demonstrate no evidence for significant stenosis. Neural foramina demonstrate to be unremarkable. There are uncov ertebral degenerative changes C3-C7. There is no prevertebral soft tissue swelling. Minimal carotid a rtery calcifications. Sagittal coronal reformatted images demonstrate no subluxation or bony abnormal ities. CT chest: The lungs parenchyma demonstrate to be clear. No masses and/or nodules are identified. The trachea mainstem bronchus demonstrate to be normal. There is no significant pleural and/or perica rdial effusions. The thoracic aorta demonstrate intimal aortic arch calcification. The heart is not enlarged. There ar e minimal coronary artery calcifications. Minimal aortic valvular calcification. There is no significant mediastinal and/or hilar lymphadenopathy. The axillary regions demonstrate to be clear. The bone windows demonstrate mild diffuse bony osteopenia. Visualized portions of the clavicles, shyam ral heads, bilateral scapula demonstrate to be within normal limits. Sternal, thoracic spine spinous processes and bilateral ribs demonstrate to be within normal limits. No significant significant displ shane fractures could be seen minimal anterior spondylosis within the mid/lower thoracic spine. Abdomen and pelvis: Grossly the unopacified liver, gallbladder, pancreas, spleen and adrenal glands d emonstrate to be within normal limits, no significant focal lesions were identified. The kidneys demonstrate grossly unremarkable. There is no evidence for nephrolithiasis and/or hydro nephrosis. Grossly the unopacified stomach, small bowel and large bowel demonstrate to be within normal limits. There is no evidence for bowel dilatation. The urinary bladder demonstrate to be within normal limits. The uterus is enlarged with multiple part ially calcified fibroids. The aorta demonstrate atherosclerotic disease. There is no retroperitonea l lymphadenopathy. There is no evidence for ascites/or retroperitoneal hemorrhage. The lumbar spine, spinous processes, transverse processes, sacrum demonstrate to be within normal reese its. Degenerative changes are seen within the lower posterior facet sacroiliac joints and minimally a long bilateral hip joints. There is superior and inferior pubic rami, bilateral iliac bones demonstra te to be within normal limits. There is a left femoral basicervical neck fracture. IMPRESSION: No evidence for acute intracranial hemorrhage, mass effect or midline shift. Mild brain atrophy with minimal periventricular white matter changes of microvascular ischemia. No evidence for fracture or subluxation of the cervical spine. Minimal degenerative disc disease at C5/C6 and C6/C7. Mild diffuse bony osteopenia. Left femoral basicervical neck fracture. No evidence for gross acute traumatic injury within the chest, abdomen, or pelvis. Enlarged uterus with multiple degenerated fibroids. Electronically signed by: Adolph Sandhu MD 11/21/2022 11:45 PM RN MEDICATION Due to temporary technical issues with the PACS/Fluency reporting system, reports are being signed by the in house radiologists without review as a courtesy to insure prompt reporting. The interpreting radiologist is fully responsible for the content of the report.
[2022-11-22] MEDS ORDERED: HYDRALAZINE HCL 20 MG/ML VIAL IV ONE (12:37)
[2022-11-22] MEDS: Ringers Lactate 1,000 ML IV SCH (12:55)
--- NOTE | 2022-11-22 23:37 | CON ---
Date of Consultation: 11/22/2022 Reason For Consultation: Left hip pain. History Of Present Illness: Lizbeth is an 82-year-old female who presented to the ER yesterday after sustaining a fall while at her custodial. The patient has history of coronary artery disease, con gestive heart failure, hypertension, and dementia. I discussed the patient's history with her daught er as the patient does have dementia and is unable to give a complete history. The patient is ambula tory with and without assistive devices. She stays at [facility] and is oriented x1 at [facility]. Review of Systems: As above, otherwise unable to obtain. Past Medical History: Includes CHF, CAD, hypertension, and dementia. Family History: Noncontributory. Social History: No active smoking. Lives at [facility]. Physical Examination: General: No apparent distress. HEENT: Normocephalic, atraumatic. Neck: Supple. Cardiovascular: Brisk capillary refill to all digits. Chest: Nonlabored breathing. Abdomen: Nondistended. Psychiatric: History of dementia. Musculoskeletal: Bilateral upper extremities with functional range of motion without pain. No gross deformities. No dislocations. Right lower extremity with no pain with range of motion of the hip, knee, or ankle. The patient is unable to perform neuromotor exam secondary to dementia. On left low er extremity, the patient grimaces with range of motion of the left hip. Tenderness to palpation of the left hip. No tenderness over the knee, tibia, or ankle. She does not cooperate with neuromotor exam. Diagnostic Studies: X-rays and CT scan demonstrated displaced left femoral neck fracture. Assessment And Plan: Lizbeth is an 82-year-old female with a left displaced femoral neck fracture. I discussed with the patient as well as her daughter her diagnosis as well as treatment plan. The pat ient was ambulatory prior to the fall. Given her displaced fracture pattern, I recommend left hip he miarthroplasty. Risks and benefits associated with the procedure were discussed with the patient and family at length and they expressed understanding and elected to proceed with operative treatment. We will plan on surgery tomorrow after we obtain medical optimization and cardiac clearance. CV/MODL Voice ID: [id number] Report ID: [id number]
[2022-11-23] MEDS: Ringers Lactate 1,000 ML IV SCH ×2 (06:25→09:00)
[2022-11-23 07:16] LABS: Absolute Lymphocytes (CBC) 0.6 K/uL (0.7-4.9); Hematocrit 35.9 % (36.0-45.0); Lymphocytes % 8.9 % (15.3-44.8); MCV 93.2 fL (80-100); MPV 7.7 fL (7.6-11.3); RBC Red Blood Cell Count 3.86 M/uL (3.86-4.86)
--- NOTE | 2022-11-23 08:07 | ECHO ---
HEIGHT: 5 ft 6 in WEIGHT: 169 lb 9.6 oz DATE OF STUDY: 11/22/[address]: Shiraz Herman NP 2-DIMENSIONAL: YES M.MODE: YES DOPPLER: YES COLOR FLOW: YES TDS: YES PORTABLE: YES DEFINITY: BUBBLE STUDY: DIAGNOSIS: SURGICAL CLEARANCE, HISTORY OF CONGESTIVE HEART FAILURE CARDIAC HISTORY: CATHERIZATION: SURGERY: PROSTHETIC VALVE: PACEMAKER: MEASUREMENTS (cm) DIASTOLIC (NORMALS) SYSTOLIC (NORMALS) IVSd 0.9 (0.6-1.2) LA Diam 3.6 (1.9-4.0) LVEF 68% LVIDd 5.4 (3.5-5.7) LVIDs 3.3 (2.0-3.5) %FS 38% LVPWd 0.9 (0.6-1.2) Ao Diam 2.7 (2.0-3.7) 2 DIMENSIONAL ASSESSMENT: RIGHT ATRIUM: NOT SEEN LEFT ATRIUM: NORMAL RIGHT VENTRICLE: NOT WELL SEEN LEFT VENTRICLE: NORMAL TRICUSPID VALVE: MODERATE TRICUSPID REGURGITATION MITRAL VALVE: MILD MITRAL REGURGITATION PULMONIC VALVE: MILD PULMONIC INSUFFICIENCY AORTIC VALVE: THICKENED, NO AORTIC STENOSIS PERICARDIAL EFFUSION: TRACE AORTIC ROOT: NORMAL LEFT VENTRICULAR WALL MOTION: NORMAL DOPPLER/COLOR FLOW: SEE BELOW COMMENTS: 1. NORMAL LEFT VENTRICULAR EJECTION FRACTION 60-65% 2. NORMAL WALL MOTION 3. MILD MITRAL REGURGITATION 4. MODERATE TRICUSPID REGURGITATION 5. THICKENED AORTIC VALVE, NO AORTIC STENOSIS 6. MODERATE PULMONARY HYPERTENSION WITH RIGHT VENTRICULAR SYSTOLIC PRESSURE OF 50-55 mmHg TECHNOLOGIST: PAVEL MCKEON
[2022-11-23] MEDS ORDERED: TRANEXAMIC ACID 1,000 MG/10 ML VIAL IV ONE (10:12)
[2022-11-23] MEDS ORDERED: CLINDAMYCIN 600MG/D5W 50 ML IV ONE (10:15)
[2022-11-23] MEDS ORDERED: FENTANYL CITR 100 MCG/2 ML ONE (10:31)
[2022-11-23] MEDS ORDERED: propofoL 200 MG/20 ML VIAL IV ONE (10:32)
[2022-11-23] MEDS ORDERED: ROCURONIUM 50 MG/5 ML VIAL IV ONE (10:33)
[2022-11-23] MEDS ORDERED: LIDOCAINE 2% MPF 5 ML VIAL ONE (10:34)
[2022-11-23] MEDS ORDERED: ONDANSETRON 4 MG/2 ML VIAL ONE (10:34)
[2022-11-23] MEDS ORDERED: EPHEDRINE SULF 50 MG/ML VIAL ONE (12:16)
[2022-11-23] MEDS ORDERED: Phenylephrine HCl 10 MG/ML 1 ML VIAL ONE (13:28)
[2022-11-23] MEDS ORDERED: dexAMETHasone 4 MG/ML VIAL ONE (13:33)
[2022-11-23] MEDS ORDERED: Ringers Lactate 1,000 ML IV ONE (13:34)
[2022-11-23] MEDS ORDERED: KETOROLAC 30 MG/ML INJ ONE (13:46)
--- NOTE | 2022-11-23 13:46 | P.BOP ---
Preoperative diagnosis: left femoral neck fracture Postoperative diagnosis: same Primary procedure: left hip hemiarthroplasty Signs Sales Representative: NONE,NONE Estimated blood loss: 200 cc Specimen: left femoral head Findings: see dictation Anesthesia: General Complications: None Implants: [employer] Yazmin Echo Fx 11 mm stem, 48 mm shell, 28x-3 head Fluids & blood products: per anesthesia record Transferred to: Recovery Room Condition: Good
[2022-11-23] MEDS ORDERED: DOCUSATE NA 100 MG CAP PO PRN (14:04)
[2022-11-23] MEDS ORDERED: ACETAMINOPHEN 325 MG TABLET PO PRN (14:04)
[2022-11-23] MEDS ORDERED: TRAMADOL HCL 50 MG TAB PO PRN (14:04)
--- NOTE | 2022-11-23 14:06 | P.PN ---
Subjective Date of Service: 11/23/22 Chief Complaint: Left hip fracture No acute events overnight. She is minimally verbal. Per nursing staff, no concerns. She has been NPO past midnight per nursing staff. Plan is for surgery this morning around 10:30 AM. Review of Systems is unable to be obtained Physical Examination - Vital Signs Temperature: 98.8 F Blood Pressure: 146/67 Pulse: 81 Respirations: 17 Pulse Ox (%): 95 - Physical Exam General: In no apparent distress, Oriented x1, Demented HEENT: Atraumatic, Mucous membr. moist/pink, Sclerae nonicteric Neck: JVD not distended Respiratory: Clear to auscultation bilaterally, Normal air movement Cardiovascular: No edema, Regular rate/rhythm, Normal S1 S2, No gallops, No rubs, No murmurs Gastrointestinal: Normal bowel sounds, Soft and benign, Non-distended, No tenderness, No rebound, No guarding Musculoskeletal: Other (no swelling, bruising to left hip) Integumentary: No rashes Neurological: Dementia Assessment And Plan - Plan # Traumatic Ground-Level Fall complicated by Acute Left Subcapital Proximal Femur Fracture - Chest x-ray = "no acute intrathoracic process suspected." - Left hip x-ray = "subcapital fracture is seen of the proximal left femur with varus angulation. No dislocation evident." - Pelvis x-ray = "subcapital fracture proximal left femur." - CT head/cervical spine/chest/abdomen/pelvis = "No evidence for acute intracranial hemorrhage, mass effect or midline shift. Mild brain atrophy with minimal periventricular white matter changes of microvascular ischemia. No evidence for fracture or subluxation of the cervical spine. Minimal degenerative disc disease at C5/C6 and C6/C7. Mild diffuse bony osteopenia. Left femoral basicervical neck fracture. No evidence for gross acute traumatic injury within the chest, abdomen, or pelvis. Enlarged uterus with multiple degenerated fibroids." - Orthopedic Surgery consulted and spoke with Dr. Crum - recommendations appreciated - Plan for surgery today - Will require post-operative PT - PRN pain control - Encouraged incentive spirometry - NPO until surgery # Chronic Compensated Diastolic Congestive Heart Failure with Preserved Ejection Fraction # Moderate Pulmonary Hypertension # Coronary Artery Disease # Moderate Tricuspid Regurgitation # Hypertension # Advanced Dementia - Cardiology consulted and spoke with Dr. Mendiola - recommendations appreciated - He has cleared her for surgery - Transthoracic echocardiogram = "1. normal left ventricular ejection fraction 60-65% 2. normal wall motion 3. mild mitral regurgitation 4. moderate tricuspid regurgitation 5. thickened aortic valve, no aortic stenosis 6. moderate pulmonary hypertension with right ventricular systolic pressure of 50-55 mmHg" - Resume home medications once verified Cricket Vang M.D.
[2022-11-23 14:42] LABS: Hematocrit 33.4 % (36.0-45.0)
--- NOTE | 2022-11-23 14:51 | RAD REPORT ---
EXAM DESCRIPTION: RAD - Hip Left 2 View - 11/23/2022 2:38 pm CLINICAL HISTORY: Left hip surgery FINDINGS: No fracture or dislocation is seen. Postoperative changes left hip arthroplasty. Prosthesis is in good position
[2022-11-23] MEDS: CLINDAMYCIN 600MG/D5W 50 ML IV SCH (17:00)
--- NOTE | 2022-11-23 22:29 | P.OP ---
Preoperative diagnosis: left femoral neck fracture Postoperative diagnosis: same Primary procedure: left hip hemiarthroplasty Anesthesia: general Estimated blood loss: 200 cc Specimen: left femoral head Findings: see dictation Operative Technique: Indication For Procedure: Lizbeth is an 82-year-old female who presented to the ER after sustaining a fall on her leftt side with subsequent pain to her leftt hip and inability to bear weight. X-rays demonstrated a displaced leftt femoral neck fracture. Discussed with the patient and her family risks and benefits as sociated with operative and nonoperative treatment. She expressed understanding and elected to proceed with operative treatment. Description Of Procedure: After informed consent was obtained, the patient was identified in the preoperative holding area. The left lower extremity was marked. The patient was then taken back to the operating room, transferred to the operating table in supine fashion, placed under general anesthesia. She was then placed in the right lateral decubitus position with her extremities well padded. The left lower extremity was then prepped and draped in usual sterile fa shion. A time-out was initiated. The correct patient and procedure were confirmed and identified. The patient did receive a preoperative prophylactic antibiotics. Surgery was then begun and approximately a 15 cm long curvilinear incision was placed centered over the greater trochanter consistent with a posterior approach to the hip. Dissection was then taken out of the tensor fascia jose which was split and divided and retracted using a Charnley retractor. Dissection was then taken down to the short external rotators, which were elevated off the greater trochanter using Bovie electrocautery and tagged using a #5 Ethibond. A T-shaped capsulotomy was then performed. Hematoma was then evacuated using suction. The fracture was then identified. A corkscrew was then placed to remove the femoral head and a size 48 mm head was selected. Trial implant was then placed within the acetabulum. There was good overall fit. Next, attention was taken to the proximal femur. A canal finder was first introduced after using a quangie cutter followed by lateralizer. The canal was then reamed from size 7 mm reamer to a size 13 mm reamer with good fit of the 13 mm reamer at that point. The canal was then broached starting with a 7 mm broach to a 13 mm broach with good fit. Calcar planer was then used to freshen up the femoral neck cut and a -3 mm head and neck with 48 mm shell was then placed on the tr ial. The hip was reduced. There was good overall leg length and range of motion as well as stability noted. The trial implants were then removed. The proximal femur as well as acetabulum were then irrigated thoroughly with normal saline using pulse lavage. The canal was then prepped for placement of cement. A bone plug was then placed to a depth of 160 mm deep to the medial calcar. There was good overall fit with the plug. Next, cement was placed using a cement gun down the femoral canal and the size stem was then placed and held into position until the cement hardened. Excess cement was removed using [place] elevators. -3 x 28 mm head and a 48 mm shell were then placed on the stem and the hip was reduced. The patient had overall good leg length, good stability of the hip with good range of motion. The wound was then irrigated thoroughly with normal saline using pulse lavage. The capsule was then approximated using a Number 5 Ethibond. The external rotators were then tacked back to the greater trochanter using a drill and suture passer. The wound again was then irrigated with normal saline. The tensor fascia jose was approximated using 0 Vicryl. Subcutaneous tissue was approximated using a 2-0 Vicryl. Skin was approximated using alexandra. Sterile dressings were applied. The patient was placed in an abduction pillow, awakened, and transferred to PACU in stable condition. Postoperative Plan: She will be weightbearing as tolerated on the left lower extremity with posterior hip precautions. Physical Therapy will be consulted to aid with mobilization and we will consult inpatient rehab for placement. Complications: None Implants: Biomet Yazmin 11 Echo Fx stem, 48 mm Shell, 28 x -3 mm head Fluids & blood products: per anesthesia record Transferred to: Recovery Room Condition: Good
[2022-11-24] MEDS: CLINDAMYCIN 600MG/D5W 50 ML IV SCH ×2 (00:24→08:56)
[2022-11-24] MEDS: Ringers Lactate 1,000 ML IV SCH ×2 (05:00→16:54)
[2022-11-24 06:33] LABS: Absolute Lymphocytes (CBC) 0.6 K/uL (0.7-4.9); Hematocrit 31.8 % (36.0-45.0); Lymphocytes % 7.7 % (15.3-44.8); MCV 92.9 fL (80-100); MPV 7.6 fL (7.6-11.3); RBC Red Blood Cell Count 3.42 M/uL (3.86-4.86)
[2022-11-24 06:48] LABS: Potassium 3.6 mmol/L (3.5-5.1)
[2022-11-24] MEDS: ENOXAPARIN 40 MG/0.4 ML SQ SCH (08:55)
--- NOTE | 2022-11-24 18:51 | P.PN ---
Subjective Date of Service: 11/24/22 Chief Complaint: Left hip fracture POD # 1 left hip hemiarthroplasty. No acute events overnight per nursing staff. She is minimally verbal, but appears comfortable. PT has been consulted for post-surgical therapy recommendations. Review of Systems is unable to be obtained Physical Examination - Vital Signs Temperature: 99.1 F Blood Pressure: 128/55 Pulse: 89 Respirations: 16 Pulse Ox (%): 93 Assessment And Plan - Plan - Physical Exam General: In no apparent distress, Oriented x1, Demented HEENT: Atraumatic, Mucous membr. moist/pink, Sclerae nonicteric Neck: JVD not distended Respiratory: Clear to auscultation bilaterally, Normal air movement Cardiovascular: No edema, Regular rate/rhythm, Normal S1 S2, No gallops, No rubs, No murmurs Gastrointestinal: Normal bowel sounds, Soft and benign, Non-distended, No tenderness, No rebound, No guarding Musculoskeletal: Other (left hip covered in surgical dressing) Integumentary: No rashes Neurological: Dementia # Traumatic Ground-Level Fall complicated by Acute Left Subcapital Proximal Femur Fracture - Chest x-ray = "no acute intrathoracic process suspected." - Left hip x-ray = "subcapital fracture is seen of the proximal left femur with varus angulation. No dislocation evident." - Pelvis x-ray = "subcapital fracture proximal left femur." - CT head/cervical spine/chest/abdomen/pelvis = "No evidence for acute intracranial hemorrhage, mass effect or midline shift. Mild brain atrophy with minimal periventricular white matter changes of microvascular ischemia. No evidence for fracture or subluxation of the cervical spine. Minimal degenerative disc disease at C5/C6 and C6/C7. Mild diffuse bony osteopenia. Left femoral basicervical neck fracture. No evidence for gross acute traumatic injury within the chest, abdomen, or pelvis. Enlarged uterus with multiple degenerated fibroids." - Orthopedic Surgery consulted and spoke with Dr. Crum - recommendations appreciated - S/P left hip hemiarthroplasty on 11/23/2022 - PT consulted - recommendations appreciated - PRN pain control - Encouraged incentive spirometry # Chronic Compensated Diastolic Congestive Heart Failure with Preserved Ejection Fraction # Moderate Pulmonary Hypertension # Coronary Artery Disease # Moderate Tricuspid Regurgitation # Hypertension # Advanced Dementia - Cardiology consulted and spoke with Dr. Mendiola - recommendations appreciated - Transthoracic echocardiogram = "1. normal left ventricular ejection fraction 60-65% 2. normal wall motion 3. mild mitral regurgitation 4. moderate tricuspid regurgitation 5. thickened aortic valve, no aortic stenosis 6. moderate pulmonary hypertension with right ventricular systolic pressure of 50-55 mmHg" - Resume home medications once verified Cricket Vang M.D.
[2022-11-24] MEDS: ENSURE SURGERY 237 ML CAN PO SCH (20:28)
--- NOTE | 2022-11-24 21:11 | P.PN ---
Subjective Date of Service: 11/24/22 Chief Complaint: s/p left hip zoraida Subjective: No new changes Physical Examination - Vital Signs Temperature: 99.1 F Blood Pressure: 128/55 Pulse: 89 Respirations: 16 Pulse Ox (%): 93 - Physical Exam General: In no apparent distress Musculoskeletal: Other (LLE: dressing c/d/i; no significant swelling; + DP pulse) Assessment And Plan - Plan Lizbeth is an 82 yo female s/p left hip hemiarthroplasty POD #1 -PT to mobilize; WBAT LLE; posterior hip precautions -lovenox for DVT prophylaxis -acute expected postoperative blood loss anemia; continue to monitor h/h
[2022-11-25] MEDS: Ringers Lactate 1,000 ML IV SCH ×3 (01:00→12:31)
[2022-11-25 06:04] LABS: Absolute Lymphocytes (CBC) 0.8 K/uL (0.7-4.9); Hematocrit 28.3 % (36.0-45.0); Lymphocytes % 13.5 % (15.3-44.8); MCV 92.5 fL (80-100); MPV 7.8 fL (7.6-11.3); RBC Red Blood Cell Count 3.06 M/uL (3.86-4.86)
[2022-11-25 06:20] LABS: Potassium 3.5 mmol/L (3.5-5.1)
[2022-11-25] MEDS: ENSURE SURGERY 237 ML CAN PO SCH ×2 (08:20→21:00)
[2022-11-25] MEDS: ENOXAPARIN 40 MG/0.4 ML SQ SCH (08:20)
--- NOTE | 2022-11-25 19:25 | P.PN ---
Subjective Date of Service: 11/25/22 Chief Complaint: s/p left hip zoraida POD # 2 left hip hemiarthroplasty. She was seen on rounds while PT was working with her. Per PT, she tolerated passive range of motion without any issues. Per PT, she is cleared to be discharged back to her snf with continued physical therapy services. Review of Systems is unable to be obtained Physical Examination - Vital Signs Temperature: 97.8 F Blood Pressure: 141/62 Pulse: 75 Respirations: 16 Pulse Ox (%): 95 Assessment And Plan - Plan - Physical Exam General: In no apparent distress, Oriented x1, Demented HEENT: Atraumatic, Mucous membr. moist/pink, Sclerae nonicteric Neck: JVD not distended Respiratory: Clear to auscultation bilaterally, Normal air movement Cardiovascular: No edema, Regular rate/rhythm, Normal S1 S2, No gallops, No rubs, No murmurs Gastrointestinal: Normal bowel sounds, Soft and benign, Non-distended, No tenderness, No rebound, No guarding Musculoskeletal: Other (left hip covered in surgical dressing) Integumentary: No rashes Neurological: Dementia # Traumatic Ground-Level Fall complicated by Acute Left Subcapital Proximal Femur Fracture # Anemia - likely combination of Dilutional + Mild Acute Blood Loss Anemia from Surgery - Chest x-ray = "no acute intrathoracic process suspected." - Left hip x-ray = "subcapital fracture is seen of the proximal left femur with varus angulation. No dislocation evident." - Pelvis x-ray = "subcapital fracture proximal left femur." - CT head/cervical spine/chest/abdomen/pelvis = "No evidence for acute intracranial hemorrhage, mass effect or midline shift. Mild brain atrophy with minimal periventricular white matter changes of microvascular ischemia. No evidence for fracture or subluxation of the cervical spine. Minimal degenerative disc disease at C5/C6 and C6/C7. Mild diffuse bony osteopenia. Left femoral basicervical neck fracture. No evidence for gross acute traumatic injury within the chest, abdomen, or pelvis. Enlarged uterus with multiple degenerated fibroids." - Orthopedic Surgery consulted and spoke with Dr. Crum - recommendations appreciated - S/P left hip hemiarthroplasty on 11/23/2022 - PT consulted - recommendations appreciated - PRN pain control - Encouraged incentive spirometry - Hemoglobin slightly down-trending, monitor H&H and discharge if hemoglobin stabilizes. - Transfuse if Hgb < 7.0 # Chronic Compensated Diastolic Congestive Heart Failure with Preserved Ejection Fraction # Moderate Pulmonary Hypertension # Coronary Artery Disease # Moderate Tricuspid Regurgitation # Hypertension # Advanced Dementia - Cardiology consulted and spoke with Dr. Mendiola - recommendations appreciated - Transthoracic echocardiogram = "1. normal left ventricular ejection fraction 60-65% 2. normal wall motion 3. mild mitral regurgitation 4. moderate tricuspid regurgitation 5. thickened aortic valve, no aortic stenosis 6. moderate pulmonary hypertension with right ventricular systolic pressure of 50-55 mmHg" - Resume home medications once verified Cricket Vang M.D.
[2022-11-25 21:09] LABS: Hematocrit 29.8 % (36.0-45.0)
[2022-11-26] MEDS: Ringers Lactate 1,000 ML IV SCH (03:24)
[2022-11-26 06:13] LABS: Hematocrit 28.7 % (36.0-45.0)
[2022-11-26] MEDS: ENSURE SURGERY 237 ML CAN PO SCH (09:00)
[2022-11-26 09:27] VITALS: O2SAT 99
[2022-11-26] MEDS: ENOXAPARIN 40 MG/0.4 ML SQ SCH (09:51)
[2022-11-26 11:42] LABS: Hematocrit 29.3 % (36.0-45.0)
[2022-11-26 13:30] VITALS: BP 168/79; TEMP 97.1
--- NOTE | 2022-11-26 13:34 | P.DS ---
Admission Date: 11/22/22 Discharge Date: 11/26/22 Disposition: TRANSFER TO [facility] Discharge Condition: GOOD Reason for Admission: s/p left hip ozraida Consultations: 1. Orthopedic Surgery 2. Cardiology Procedures: - 11/23/2022 - Left Hip Hemiarthroplasty Hospital Course: DIAGNOSES: # Traumatic Ground-Level Fall complicated by Acute Left Subcapital Proximal Femur Fracture # Anemia - likely combination of Dilutional + Mild Acute Blood Loss Anemia from Surgery # Chronic Compensated Diastolic Congestive Heart Failure with Preserved Ejection Fraction # Moderate Pulmonary Hypertension # Coronary Artery Disease # Moderate Tricuspid Regurgitation # Hypertension # Advanced Dementia HOSPITAL COURSE: Ms. Lizbeth Snow is an 82 year old female with a past medical history significant for advanced dementia, chronic diastolic congestive heart failure, moderate pulmonary hypertension, coronary artery disease, and hypertension who was admitted to the [facility] on 11/22/2022 for a fall and left hip pain. She was admitted to the Medicine service. Upon further evaluation, her chest x- ray revealed, "no acute intrathoracic process suspected." Her left hip x-ray revealed, "subcapital fracture is seen of the proximal left femur with varus angulation. No dislocation evident." Her pelvic x-ray revealed, "subcapital fracture proximal left femur." Her CT head/cervical spine/chest/abdomen/pelvis revealed, "no evidence for acute intracranial hemorrhage, mass effect or midline shift. Mild brain atrophy with minimal periventricular white matter changes of microvascular ischemia. No evidence for fracture or subluxation of the cervical spine. Minimal degenerative disc disease at C5/C6 and C6/C7. Mild diffuse bony osteopenia. Left femoral basicervical neck fracture. No evidence for gross acute traumatic injury within the chest, abdomen, or pelvis. Enlarged uterus with multiple degenerated fibroids." Orthopedic Surgery was consulted and she was evaluated by Dr. Crum. On 11/23/2022, she underwent left hip hemiarthroplasty. She tolerated the procedure well and physical therapy worked with her. Physical therapy recommended that she be discharged back to her nursing facility with continued physical therapy services when she was medically cleared. Her hemoglobin dropped slightly postoperatively, which was likely combination of dilutional and mild acute blood loss anemia. Her blood counts were monitored for an additional day and stabilized. On 11/26/2022, she was seen on morning rounds and deemed medically stable for discharge. A copy of this discharge summary will be sent to the above providers to facilitate continuity of care. Today, I personally spent 20 minutes on her case, of which greater than 50% of the time was spent in coordination of care as described above. - Physical Exam General: In no apparent distress, Oriented x1, Demented HEENT: Atraumatic, Mucous membr. moist/pink, Sclerae nonicteric Neck: JVD not distended Respiratory: Clear to auscultation bilaterally, Normal air movement Cardiovascular: No edema, Regular rate/rhythm, Normal S1 S2, No gallops, No rubs, No murmurs Gastrointestinal: Normal bowel sounds, Soft and benign, Non-distended, No tenderness, No rebound, No guarding Musculoskeletal: Other (left hip covered in surgical dressing) Integumentary: No rashes Neurological: Dementia Vital Signs/Physical Exam: Temp Pulse Resp BP Pulse Ox 97.1 F 89 16 168/79 H 97 11/26/22 12:00 11/26/22 12:00 11/26/22 12:00 11/26/22 12:00 11/26/22 12:00 Laboratory Data at Discharge: WBC 5.80 K/uL (4.3-10.9) 11/25/22 05:52 Hgb 9.8 g/dL (12.0-15.0) L 11/26/22 11:33 Hct 29.3 % (36.0-45.0) L 11/26/22 11:33 Plt Count 125 K/uL (152-406) L 11/25/22 05:52 PT 11.4 SECONDS (9.5-12.5) 11/21/22 22:48 INR 1.04 11/21/22 22:48 Sodium 139 mmol/L (136-145) 11/25/22 05:52 Potassium 3.5 mmol/L (3.5-5.1) 11/25/22 05:52 BUN 29 mg/dL (7-18) H 11/25/22 05:52 Creatinine 0.86 mg/dL (0.55-1.02) 11/25/22 05:52 Glucose 111 mg/dL (74-106) H 11/25/22 05:52 Magnesium 1.8 mg/dL (1.6-2.4) 11/21/22 22:48 Home Medications: Amlodipine [Norvasc] 10 mg PO DAILY 11/22/22 Ascorbic Acid [Vitamin C] 1,000 mg PO DAILY 11/22/22 Aspirin Chewable [Aspirin Chewable*] 81 mg PO DAILY 11/22/22 Carvedilol [Coreg] 12.5 mg PO Q12H 11/22/22 Citalopram [Celexa] 10 mg PO BEDTIME 11/22/22 Clopidogrel Bisulfate [Plavix] 75 mg PO DAILY 11/22/22 Cyanocobalamin (Vitamin B-12) [Vitamin B-12] 1,000 mcg PO DAILY 11/22/22 Docusate [Colace Cap] 100 mg PO DAILY 11/22/22 Donepezil HCl [Aricept] 10 mg PO BEDTIME 11/22/22 Memantine HCl [Namenda] 10 mg PO BID 11/22/22 Multivitamin with Minerals [One Daily Plus Minerals] 1 each PO DAILY 11/22/22 lisinopriL [Prinivil] 20 mg PO BID 11/22/22 RX: Enoxaparin Sodium [Lovenox 40 MG INJ*] 40 mg SQ DAILY #1 ml 11/26/22 New Medications: RX: Enoxaparin Sodium [Lovenox 40 MG INJ*] 40 mg SQ DAILY #1 ml Diet: AHA Activity: Fall precautions Followup: Humberto Cuellar MD [Primary Care Provider] - Time spent managing pt's care (in minutes): 20
== END 2022-11-26 18:00 | DRG 522 ==
LOC: ER 22:03 → ERHOLD 11-22 00:46 → 2ND 11-22 01:43
PROVIDERS: ADMIT Internal Medicine; ATTEND Internal Medicine
PROC: 0SRS0J9 Replacement of Left Hip Joint, Femoral Surface with Synthetic Substitute, Cemented, Open Approach (ICD-10-PCS; principal; 2022-11-23 10:30)
DX: S72.012A Unspecified intracapsular fracture of left femur, initial encounter for closed fracture (principal); I50.42 Chronic combined systolic (congestive) and diastolic (congestive) heart failure; D62 Acute posthemorrhagic anemia; I11.0 Hypertensive heart disease with heart failure; I27.20 Pulmonary hypertension, unspecified; I08.1 Rheumatic disorders of both mitral and tricuspid valves; I27.29 Other secondary pulmonary hypertension; I25.10 Atherosclerotic heart disease of native coronary artery without angina pectoris; F03.90 Unspecified dementia, unspecified severity, without behavioral disturbance, psychotic disturbance, mood disturbance, and anxiety; Z88.0 Allergy status to penicillin; Z79.02 Long term (current) use of antithrombotics/antiplatelets; Z79.82 Long term (current) use of aspirin; Z91.81 History of falling; Z79.899 Other long term (current) drug therapy; Z20.822 Contact with and (suspected) exposure to COVID-19; W18.30XA Fall on same level, unspecified, initial encounter; Y93.9 Activity, unspecified; Y92.9 Unspecified place or not applicable
CPT/HCPCS: 36415; 51702; 70450; 71045; 71250; 72125; 72170; 80048; 83735; 85014; 85018; 85025; 85610; 87811; 88305; 88311; 93005; 93306; 96374; 97110; 97161; 97530; 99285; J0360; J1100; J1650; J2001; J2270; J2370; J2405; J2704; J3010; J7120

== ENCOUNTER 2022-11-29 09:56 | Emergency (ER) | payer OTHER ==
--- NOTE | 2022-11-29 11:07 | RAD REPORT ---
EXAM DESCRIPTION: CT - Head Brain Wo Cont - 11/29/2022 10:57 am CLINICAL HISTORY: Altered mental status COMPARISON: Head C Spine Mpr Wo Con dated 09/29/2022 TECHNIQUE: Axial 5 mm thick images of the head were obtained without IV contrast. All CT scans are performed using dose optimization technique as appropriate and may include automated exposure control or mA/KV adjustment according to patient size. FINDINGS: No intracranial hemorrhage, mass, edema or shift of mid-line structures. No acute cortical based infarction. No cortical edema or sulcal effacement. Atrophy changes are present similar to the September 29 examination. Ventricular size has remained stable. No abnormal extra-axial fluid collect ions. Chronic ischemic changes seen in the cerebral white matter. Mastoid air cells and visualized portions of the paranasal sinuses are clear. No acute bony findings. A 24 x 7 mm dense calcified mass is seen along the outer table of the lateral right skull unchanged from prior imaging. This is not of clinical concern. There is no destruction o f the underlying cortex or diploic space. IMPRESSION: No acute intracranial finding. Above detailed findings are stable from September 2022 im aging.
--- NOTE | 2022-11-29 11:08 | RAD REPORT ---
EXAM DESCRIPTION: RAD - Chest Single View - 11/29/2022 10:48 am CLINICAL HISTORY: altered mental status COMPARISON: Portable 11/21/2022 TECHNIQUE: AP portable chest image was obtained 11/29/2022 10:48 am . FINDINGS: Lung volumes are low, further reduced from the comparison study. This accentuates the base line interstitial pattern. No peripheral mass or consolidation. Significant failure or volume overloa d are not suspected. Heart and vasculature are normal. No measurable pleural effusion and no pneumothorax. No acute bony abnormality seen. No acute aortic findings suspected. IMPRESSION: Limited portable study without acute cardiopulmonary finding.
[2022-11-29 11:29] LABS: Absolute Lymphocytes (CBC) 0.7 K/uL (0.7-4.9); Hematocrit 32.5 % (36.0-45.0); Lymphocytes % 7.6 % (15.3-44.8); MCV 93.4 fL (80-100); MPV 7.9 fL (7.6-11.3); RBC Red Blood Cell Count 3.48 M/uL (3.86-4.86)
[2022-11-29 11:35] LABS: Urine Blood Trace-intact (Negative); Urine Glucose Negative (Negative); Urine Protein 1+ (Negative); Urine Specific Gravity 1.025 (1.005-1.030); Urine pH 5.5 (5.0-7.0)
[2022-11-29 11:45] LABS: Albumin 2.6 g/dL (3.4-5.0); Bilirubin Direct 0.3 mg/dL (0-0.2); Bilirubin Total 0.7 mg/dL (0.2-1.0); Magnesium 2.4 mg/dL (1.6-2.4); Potassium 3.5 mmol/L (3.5-5.1); Protein, Total 6.9 g/dL (6.4-8.2); Troponin High Sensitivity 41.7 pg/mL (<58.9)
[2022-11-29 11:48] LABS: Urine Bacteria <20 /HPF (<20); Urine RBC 21-50 /HPF (None Seen)
[2022-11-29 11:49] LABS: Urine Mucus 4+ /HPF (None Seen); Urine Yeast with Hyphae Occasional /HPF (None Seen)
[2022-11-29 12:08] LABS: Protime INR 1.12
--- NOTE | 2022-11-29 13:43 | EDPHYS ---
Physician Documentation [facility] Name: Lizbeth Snow Age: 82 yrs Sex: Female : 1940 Arrival Date: 11/29/2022 Time: 09:56 Bed 2 Private MD: ED Physician Higinio Reza HPI: 11/29 10:40 This 82 yrs old Black Female presents to ER via EMS with complaints of Decreased ms3 responsiveness. 10:40 82-year-old female with past medical history of congestive heart failure, coronary ms3 arthrosclerosis, advanced dementia presents via clued EMS for decreased responsiveness. EMS notes that patient awoke on their arrival. Patient's baseline is alert and oriented x0. Nursing facility staff stated to EMS that on waking up patient was difficult to arouse.. Historical: - Allergies: 10:02 PENICILLINS; ph - PMHx: 10:02 Congestive heart failure; coronary atherosclerosis; Dementia; depressive disorder; ph Hypercholesterolemia; Hypertensive disorder; - Immunization history:: Adult Immunizations unknown. - Social history:: Smoking status: unknown. ROS: 10:40 Unable to obtain ROS due to altered mental status, baseline dementia. ms3 Exam: 10:40 Constitutional: This is a well developed, well nourished patient who is awake, alert, ms3 and in no acute distress. Head/Face: Normocephalic, atraumatic. Neck: Trachea midline, no cervical lymphadenopathy. Supple, full range of motion without nuchal rigidity, or vertebral point tenderness. No Meningismus. Chest/axilla: Normal chest wall appearance and motion. Nontender with no deformity. Cardiovascular: Regular rate and rhythm with a normal S1 and S2. No gallops, murmurs, or rubs. Normal PMI, no JVD. No pulse deficits. Respiratory: Lungs have equal breath sounds bilaterally, clear to auscultation and percussion. No rales, rhonchi or wheezes noted. No increased work of breathing, no retractions or nasal flaring. Abdomen/GI: Soft, non-tender, with normal bowel sounds. No distension or tympany. No guarding or rebound. No evidence of tenderness throughout. 14:08 ECG was reviewed by the Attending Physician. ms3 Vital Signs: 10:00 Pulse 67; Resp 18; Temp 98.5; Pulse Ox 100% on R/A; ph 10:03 BP 184 / 115; ph 12:02 BP 162 / 127; Pulse 68; Resp 18; Pulse Ox 96% on R/A; ph 13:00 BP 149 / 107; Pulse 74; Resp 18; Pulse Ox 98% on R/A; ph 13:47 BP 137 / 87; Pulse 70; Resp 18; Pulse Ox 97% on R/A; ph MDM: 10:20 Patient medically screened. ms3 10:40 Differential Diagnosis: CVA, hypoglycemia, intracranial bleed. ms3 13:54 Data reviewed: vital signs, nurses notes, lab test result(s), EKG, radiologic studies, ms3 and as a result, I will discharge patient. Consideration of Admission/Observation Escalation of care including admission/observation considered. No emergent medical condition necessitating admission found at this time. 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 Historians other than the Patient: EMS: [facility]. Counseling: I had a detailed discussion with the patient and/or guardian regarding:. ED course: Labs reviewed. Urinalysis reveals nitrite positive, micro does not show bacteria. Will cover patient with Macrobid. Patient remains at baseline, vital signs remained stable. We will transfer patient back to nursing facility.. 11/29 10:23 Order name: Basic Metabolic Panel; Complete Time: 13:13 11/29 10:23 Order name: CBC with Diff; Complete Time: 13:13 11/29 10:23 Order name: Hepatic Function; Complete Time: 13:13 11/29 10:23 Order name: Magnesium; Complete Time: 13:13 11/29 10:23 Order name: Protime (+inr); Complete Time: 13:13 11/29 10:23 Order name: Ptt, Activated; Complete Time: 13:13 11/29 10:23 Order name: Troponin High Sensitivity; Complete Time: 13:13 ms11/29 10:23 Order name: CT Head Brain wo Cont ms3 11/29 10:23 Order name: Chest Single View XRAY; Complete Time: 11:25 11/29 10:23 Order name: EKG; Complete Time: 10:30 ms3 11/29 10:23 Order name: Urine Microscopic Only; Complete Time: 13:13 ms3 11/29 10:33 Order name: Head Brain Wo Cont; Complete Time: 11:25 EDMS 11/29 11:35 Order name: Urine Dipstick-Ancillary; Complete Time: 13:13 EDMS 11/29 11:54 Order name: Urine Culture EDMS 11/29 10:23 Order name: Cardiac monitoring; Complete Time: 13:02 ms3 11/29 10:23 Order name: EKG - Nurse/Tech; Complete Time: 13:03 ms3 11/29 10:23 Order name: IV Saline Lock; Complete Time: 11:42 ms3 11/29 10:23 Order name: Labs collected and sent; Complete Time: 11:42 ms3 11/29 10:23 Order name: NPO; Complete Time: 11:42 ms3 11/29 10:23 Order name: O2 Per Protocol; Complete Time: 10:28 ms3 11/29 10:23 Order name: O2 Sat Monitoring; Complete Time: 10:28 ms3 11/29 10:23 Order name: Urine Dipstick-Ancillary (obtain specimen); Complete Time: 11:42 ms3 EC:08 Rate is 84 beats/min. Rhythm is regular. QRS [place] is Normal. NE interval is normal. ms3 Clinical impression: NSR w/ Non-specific ST/T Changes. Interpreted by me. Reviewed by me. Administered Medications: No medications were administered Disposition: 19:25 Chart complete. ms3 Disposition Summary: 11/29/22 13:43 Discharge Ordered Location: Home ms3 Condition: Stable ms3 Diagnosis - Alzheimer's disease, unspecified ms3 - UTI/ Urinary tract infection, site not specified ms3 Followup: ms3 - With: Private Physician - When: 2 - 3 days - Reason: Recheck today's complaints Discharge Instructions: - Discharge Summary Sheet ms3 - Dementia ms3 - Urinary Tract Infection, Adult ms3 Forms: - Medication Reconciliation Form ms3 - Thank You Letter ms3 - Antibiotic Education ms3 - Prescription Opioid Use ms3 Prescriptions: - Macrobid 100 mg Oral Capsule - take 1 capsule by ORAL route every 12 hours for 10 days; 20 capsule; Refills: ms3 0, Product Selection Permitted Signatures: Dispatcher [employer] EDMS Garcia, Tayla, RN RN ph Libia, Higinio, DO DO ms3
--- NOTE | 2022-11-29 13:43 | ER ---
Nurse's Notes [facility] Name: Lizbeth Snow Age: 82 yrs Sex: Female : 1940 Arrival Date: 11/29/2022 Time: 09:56 Bed 2 Private MD: Diagnosis: Alzheimer's disease, unspecified;UTI/ Urinary tract infection, site not specified Presentation: 11/29 10:00 Chief complaint: EMS states: Pt from [facility], staff called EMS for unresponsive pt, ph when EMS arrived pt appeared to be sleeping, awakened w/ light sternal rub, was then slightly drowsy during transport, awake and alert at arrival to ED, pt is confused at baseline w/ hx of dementia, blood pressure elevated or EMS, other VSS. Coronavirus screen: Vaccine status: Patient reports receiving the 2nd dose of the covid vaccine. Ebola Screen: No symptoms or risks identified at this time. Initial Sepsis Screen: Does the patient meet any 2 criteria? No. Patient's initial sepsis screen is negative. Does the patient have a suspected source of infection? No. Patient's initial sepsis screen is negative. Risk Assessment: Do you want to hurt yourself or someone else? Patient reports no desire to harm self or others. Onset of symptoms was November 29, 2022. 10:00 Method Of Arrival: EMS: [facility] ph 10:00 Acuity: DREW 3 ph Triage Assessment: 10:24 General: Appears in no apparent distress. Behavior is quiet. Pain: Unable to use pain ph scale. Patient is disoriented. Neuro: Level of Consciousness is awake, alert, Oriented to person. Cardiovascular: Capillary refill < 3 seconds in bilateral fingers Patient's skin is warm and dry. Respiratory: Airway is patent Respiratory effort is even, unlabored. Historical: - Allergies: 10:02 PENICILLINS; ph - PMHx: 10:02 Congestive heart failure; coronary atherosclerosis; Dementia; depressive disorder; ph Hypercholesterolemia; Hypertensive disorder; - Immunization history:: Adult Immunizations unknown. - Social history:: Smoking status: unknown. Screenin:03 Abuse screen: Denies threats or abuse. Denies injuries from another. ph 10:04 [facility] ED Fall Risk Assessment (Adult) History of falling in the last 3 months, ph including since admission Yes- fall prone (multiple falls) (3 pts) Confusion or Disorientation Yes (5 pts) Intoxicated or Sedated No (0 pts) Impaired Gait Yes (1 pt) Mobility Assist Device Used No (0 pt) Altered Elimination Yes (1 pt) Score/Fall Risk Level 3 or more points = High Risk Oriented to surroundings, Maintained a safe environment, Hourly rounding (assess needs \T\ fall precautionary measures) done, Used ambulatory aids as needed (educated on \T\ assisted with). Nutritional screening: No deficits noted. Tuberculosis screening: No symptoms or risk factors identified. Assessment: 12:04 Reassessment: Patient appears in no apparent distress at this time. Patient and/or ph family updated on plan of care and expected duration. Pain level reassessed. Pt drowsy, oriented to person only, VSS. 13:00 Reassessment: Patient appears in no apparent distress at this time. No changes from previously documented assessment. Patient and/or family updated on plan of care and expected duration. Pain level reassessed. 14:04 Reassessment: Attempted to call report to [facility], placed on hold for approx 7 min ph then disconnected, will attempt again. 14:10 Reassessment: Patient appears in no apparent distress at this time. No changes from ph previously documented assessment. Patient and/or family updated on plan of care and expected duration. Pain level reassessed. Report called to RN at [facility], awaiting transport back to facility. 14:53 Reassessment: [facility] staff at bedside, pt d/c back to nursing facility. ph Vital Signs: 10:00 Pulse 67; Resp 18; Temp 98.5; Pulse Ox 100% on R/A; ph 10:03 BP 184 / 115; ph 12:02 BP 162 / 127; Pulse 68; Resp 18; Pulse Ox 96% on R/A; ph 13:00 BP 149 / 107; Pulse 74; Resp 18; Pulse Ox 98% on R/A; ph 13:47 BP 137 / 87; Pulse 70; Resp 18; Pulse Ox 97% on R/A; ph ED Course: 09:56 Patient arrived in ED. as 10:00 Tayla Garcia RN is Primary Nurse. ph 10:02 Triage completed. ph 10:03 Higinio Reza DO is Attending Physician. ms3 10:03 Arm band placed on left wrist. ph 10:04 Patient has correct armband on for positive identification. Bed in low position. Call ph light in reach. Side rails up X2. Warm blanket given. 10:50 Chest Single View XRAY In Process Unspecified. EDMS 10:58 Head Brain Wo Cont In Process Unspecified. EDMS 11:20 Inserted saline lock: 22 gauge in right forearm, using aseptic technique. ph 11:30 Straight cath inserted, using sterile technique, 16 Fr. Specimen obtained. Returned ph slim urine. Patient tolerated well. 13:51 No provider procedures requiring assistance completed. ph 14:21 IV discontinued, intact, bleeding controlled, No redness/swelling at site. Pressure ph dressing applied. Administered Medications: No medications were administered Medication: 10:04 VIS not applicable for this client. ph Outcome: 13:43 Discharge ordered by . ms3 14:22 Discharged to detention. ph 14:22 Condition: good 14:22 Discharge instructions given to detention, Instructed on discharge instructions, follow up and referral plans. medication usage, Demonstrated understanding of instructions, follow-up care, medications, Prescriptions given X 1. 14:55 Patient left the ED. ph Signatures: Dispatcher [employer] Marleny Mitchell Patricia, RN RN ph Higinio Reza DO DO ms3
[2022-11-29 15:05] VITALS: TEMP 98.5
[2022-11-29 15:23] VITALS: BP 137/87; O2SAT 97
--- NOTE | 2022-12-01 18:12 | EKG ---
Test Date: 2022-11-29 Test Time: 12:53:09 Pbx Supervisor: PH MEASUREMENT RESULTS: Intervals: Rate: 84 NJ: 134 QRSD: 82 QT: 390 QTc: 460 Sheridan: P: 26 NJ: 134 QRS: -19 T: -3 INTERPRETIVE STATEMENTS: Sinus rhythm with occasional premature ventricular complexes Voltage criteria for left ventricular hypertrophy Nonspecific ST and T wave abnormality Abnormal ECG Compared to ECG 11/21/2022 22:27:43 Left ventricular hypertrophy now present ST (T wave) deviation still present Electronically Signed On 12-01-22 18:10:55 HIDE SPREADER by Delvin Mendoza
== END 2022-11-29 14:55 | disposition home or self-care (01) ==
LOC: ER 09:56
DX: N39.0 Urinary tract infection, site not specified (principal); G30.9 Alzheimer's disease, unspecified; F02.80 Dementia in other diseases classified elsewhere, unspecified severity, without behavioral disturbance, psychotic disturbance, mood disturbance, and anxiety; I10 Essential (primary) hypertension; I50.9 Heart failure, unspecified; Z88.0 Allergy status to penicillin
CPT/HCPCS: 36415; 51702; 70450; 71045; 80048; 80076; 81003; 81015; 83735; 84484; 85025; 85610; 85730; 87077; 87086; 87088; 87186; 93005; 99284

== ENCOUNTER 2022-12-18 08:44 | Inpatient (IN) | payer OTHER ==
--- NOTE | 2022-12-18 09:54 | RAD REPORT ---
EXAM DESCRIPTION: CT - Head C Spine Cap Wo Con - 12/18/2022 9:31 am CLINICAL HISTORY: Trauma, head and neck injury. Chest, abdomen and pelvis pain. CONFUSED COMPARISON: Head C Spine Cap Wo Con dated 11/21/2022 TECHNIQUE: CT head without contrast. CT cervical spine without contrast with coronal and sagittal reformatted images. CT chest, abdomen and pelvis without contrast with coronal and sagittal reformatted images of the spi ne. All CT scans are performed using dose optimization technique as appropriate and may include automated exposure control or mA/KV adjustment according to patient size. FINDINGS: CT HEAD WITHOUT CONTRAST: No intracranial hemorrhage, hydrocephalus or extra-axial fluid collection. Moderate generalized brain atrophy. No areas of brain edema or midline shift. The paranasal sinuses and mastoids are clear. The calvarium is intact. CT CERVICAL SPINE WITHOUT CONTRAST: No fracture or subluxation. Carotid atherosclerosis. The prevertebral soft tissues are normal in thi kness. CT CHEST, ABDOMEN, PELVIS WITHOUT CONTRAST: NOTE: Lack of contrast is a significant limitation in the assessment of trauma related findings. Spec ifically, solid organ, vascular and bowel evaluation is significantly limited. Mild infiltrate is present in the right lung base likely pneumonia.Thyroid gland is mildly prominent in size.No pneumothorax or pericardial/pleural fluid. No evidence of intra-abdominal visceral injury, free fluid or free air is seen within the above detai led limitations. Aortic atherosclerosis. There is a suspected soft tissue ulceration suspected lower back superficial to the sacral region con taining fluid and soft tissue material. Direct inspection is suggested. Moderate lower lumbar degenerative changes. Left total hip arthroplasty. IMPRESSION: Small opacity in the right lung base could be developing pneumonia. Suspected soft tissue ulceration seen containing air and soft tissue material/debris. Direct visualiz ation suggested.
--- NOTE | 2022-12-18 09:55 | RAD REPORT ---
EXAM DESCRIPTION: RAD - Chest Single View - 12/18/2022 9:50 am CLINICAL HISTORY: COUGH Chest pain. COMPARISON: Chest Single View dated 11/29/2022; Chest Single View dated 11/21/2022; Chest Single View dated 05/18/2022 FINDINGS: Portable technique limits examination quality. Small opacity is seen in the right lung base likely representing infiltrate/pneumonia. The heart is m ildly prominent in size. Aortic atherosclerosis.
[2022-12-18 10:28] LABS: Protime INR 1.25
--- NOTE | 2022-12-18 10:37 | EDPHYS ---
Physician Documentation [facility] Name: Lizbeth Snow Age: 82 yrs Sex: Female : 1940 Arrival Date: 12/18/2022 Time: 08:46 Bed 2 Private MD: ED Physician Wyatt Sevilla HPI: 12/18 09:25 This 82 yrs old Black Female presents to ER via EMS with complaints of General Weakness.erin Historical: - Allergies: 08:47 PENICILLINS; ll1 - Home Meds: 13:26 amlodipine 10 mg tab 1 tab once daily [Active]; aspirin 81 mg Oral cap 1 cap once daily ph [Active]; bisacodyl 10 mg Rectal supp 1 suppository as needed [Active]; carvedilol 12.5 mg oral tab 1 tab every 12 hours [Active]; Celexa 10 mg Oral tab 1 tab once daily [Active]; clopidogrel 75 mg oral tab 1 tab once daily [Active]; docusate sodium 100 mg Oral tab 1 tab once daily [Active]; donepezil 10 mg oral tab 1 tab once daily [Active]; lisinopril 20 mg Oral tab 1 tab twice a day [Active]; memantine 10 mg oral tab 1 tab 2 times per day [Active]; Santyl 250 unit/gram Topical oint once daily for sacral wound [Active]; acetaminophen-codeine 300-30 mg Oral tab 1 tab every 6 hours [Active]; B12 Active 1,000 mcg oral chew daily [Active]; ascorbic acid (vitamin C) 1,000 mg tab daily [Active]; zinc sulfate 50 mg zinc (220 mg) Oral tab daily [Active]; - PMHx: 08:47 Congestive heart failure; coronary atherosclerosis; Dementia; depressive disorder; ll1 Hypercholesterolemia; Hypertensive disorder; - PSHx: 13:26 left hip; ph - Immunization history:: Adult Immunizations up to date, . - Social history:: Smoking status: unknown. ROS: 09:26 Eyes: Negative for injury, pain, redness, and discharge, ENT: Negative for injury, erin pain, and discharge, Neck: Negative for injury, pain, and swelling, Abdomen/GI: Negative for abdominal pain, nausea, vomiting, diarrhea, and constipation, Psych: Negative for depression, anxiety, suicide ideation, homicidal ideation, and hallucinations, Allergy/Immunology: Negative for hives, rash, and allergies, Endocrine: Negative for neck swelling, polydipsia, polyuria, polyphagia, and marked weight changes. 09:26 Cardiovascular: Positive for palpitations. 09:26 Respiratory: Positive for cough, with no reported sputum. 09:26 Neuro: Positive for altered mental status, weakness. Exam: 09: Constitutional: The patient appears lethargic. [facility] 09:26 Cardiovascular: Rate: tachycardic, actual rate is 102 bpm, Rhythm: regular, JVD: is not appreciated. 09:26 Respiratory: the patient does not display signs of respiratory distress, Respirations: labored breathing, is not present, Breath sounds: decreased breath sounds, that are moderate, are scattered, rhonchi, that are mild, are scattered, stridor, is not appreciated, Respiratory rate: 18 09:26 Musculoskeletal/extremity: Extremities: grossly normal except: noted in the left hip: decreased ROM, pain, ROM: limited active range of motion, limited passive range of motion, Circulation is intact in all extremities. Sensation intact. Compartment Syndrome exam of affected extremity: is normal. 11:28 ECG was reviewed by the Attending Physician. [facility] Vital Signs: 08:46 Temp 96.6(A); Pain 0/10; ll1 09:00 BP 85 / 62; Pulse 62; Resp 18; Pulse Ox 100% on R/A; Weight 74.84 kg; ph 09:30 BP 84 / 46; Pulse 61; Resp 19; Pulse Ox 100% on R/A; ph 10:00 BP 85 / 34; Pulse 56; Resp 18; Pulse Ox 100% on R/A; ph 10:30 BP 124 / 56; Pulse 67; Resp 16; Pulse Ox 100% on R/A; ph 11:00 BP 126 / 90; Pulse 62; Resp 17; Temp 96.6(C); Pulse Ox 98% on R/A; ph 11:44 BP 113 / 49; Pulse 63; Resp 16; Temp 97.3(C); Pulse Ox 98% on R/A; ph 12:00 BP 90 / 47; Pulse 64; Resp 18; Temp 97.4(C); Pulse Ox 99% on R/A; ph 12:30 BP 116 / 47; Pulse 69; Resp 16; Temp 97.0; Pulse Ox 100% on R/A; ph 13:00 BP 114 / 81; Pulse 70; Resp 18; Temp 96.8; Pulse Ox 98% on R/A; ph 13:30 BP 101 / 46; Pulse 64; Resp 15; Temp 97.1; Pulse Ox 98% ; ph 14:00 BP 114 / 46; Pulse 65; Resp 18; Pulse Ox 100% on R/A; ph 14:30 BP 126 / 112; Pulse 73; Resp 18; Pulse Ox 98% on R/A; ph 15:00 BP 105 / 50; Pulse 65; Resp 18; Temp 97.7; Pulse Ox 99% ; ph 15:30 BP 145 / 57; Pulse 79; Resp 18; Temp 98.3; Pulse Ox 95% on R/A; ph 16:00 BP 108 / 49; Pulse 83; Resp 18; Temp 100.3; Pulse Ox 96% on R/A; ph 16:30 BP 85 / 42; Pulse 82; Resp 18; Temp 100.7; Pulse Ox 98% on R/A; ph 17:01 BP 91 / 40; Pulse 85; Resp 14; Temp 100.3; Pulse Ox 98% on R/A; ph 17:12 BP 87 / 45; Pulse 86; Resp 16; Temp 100.1; Pulse Ox 99% on R/A; ph 18:15 BP 95 / 52; Pulse 89; Resp 18; Temp 99.3; Pulse Ox 98% on R/A; ph Procedures: 10:21 Central Line: the site was prepped with Betadine, in sterile fashion, a triple lumen erin catheter was inserted, in the right femoral vein, in 1 attempts. placement was verified, by blood return, the site was dressed with using sterile technique. MDM: 08:55 Patient medically screened. erin 09:33 Differential Diagnosis altered mental status, sepsis, flu. Differential Diagnosis: CVA, erin electrolyte abnormality, hypoglycemia, intracranial bleed, pneumonia, seizure, sepsis, TIA, UTI, volume depletion. Data reviewed: vital signs, nurses notes, lab test result(s), EKG, radiologic studies, CT scan, plain films. Consideration of Admission/Observation Patient was admitted/placed on observation. Escalation of care including admission/observation considered. Management of patient was discussed with the following: Hospitalist: roman landaverde. Care significantly affected by the following chronic conditions: Diabetes, Hypertension, Congestive Heart Failure, Obesity, dementia. 09:34 Discussion of test interpretation with radiology: I had a discussion with radiology [facility] regarding a test interpretation. traumadr nita gamble. 12/18 08:57 Order name: Basic Metabolic Panel [facility] 12/18 08:57 Order name: CBC with Diff [facility] 12/18 08:57 Order name: LFT's [facility] 12/18 08:57 Order name: Magnesium [facility] 12/18 08:57 Order name: NT PRO-BNP [facility] 12/18 08:57 Order name: PT-INR [facility] 12/18 08:57 Order name: Troponin HS [facility] 12/18 08:57 Order name: Blood Culture Adult (2) [facility] 12/18 08:57 Order name: Lactate w/ 2H reflex if indic. [facility] 12/18 08:57 Order name: COVID-19/FLU A+B [facility] 12/18 08:57 Order name: Urine Culture [facility] 12/18 09:25 Order name: Stool Culture [facility] 12/18 09:25 Order name: CDIFF [facility] 12/18 09:26 Order name: Type And Screen [facility] 12/18 10:28 Order name: Protime (+INR); Complete Time: 10:35 EDMS 12/18 10:36 Order name: Glucose, Ancillary Testing; Complete Time: 10:43 EDMS 12/18 10:42 Order name: Lactate w/ 2H reflex if indic.; Complete Time: 10:43 EDMS 12/18 10:48 Order name: Basic Metabolic Panel; Complete Time: 10:56 EDMS 12/18 10:48 Order name: Liver (Hepatic) Function; Complete Time: 10:56 EDMS 12/18 10:48 Order name: Troponin High Sensitivity; Complete Time: 10:56 EDMS 12/18 10:48 Order name: NT PRO-BNP; Complete Time: 10:56 EDMS 12/18 10:48 Order name: Magnesium; Complete Time: 10:56 EDMS 12/18 11:03 Order name: Urine Dipstick-Ancillary; Complete Time: 11:08 EDMS 12/18 11:06 Order name: COVID-19/FLU A+B; Complete Time: 11:08 EDMS 12/18 11:32 Order name: Type and Screen [facility] 12/18 11:48 Order name: CBC with Automated Diff [facility] 12/18 12:05 Order name: ABO/RH no charge [facility] 12/18 13:22 Order name: Manual Differential [facility] 12/18 17:33 Order name: Stool Culture [facility] 12/18 08:57 Order name: XRAY Chest (1 view) [facility] 12/18 08:57 Order name: EKG; Complete Time: 08:58 [facility] 12/18 08:57 Order name: Cardiac monitoring; Complete Time: 09:40 [facility] 12/18 08:57 Order name: EKG - Nurse/Tech; Complete Time: 11:42 [facility] 12/18 08:57 Order name: IV Saline Lock; Complete Time: 11:42 [facility] 12/18 08:57 Order name: Labs collected and sent; Complete Time: 11:42 [facility] 12/18 08:57 Order name: O2 Per Protocol; Complete Time: 09:40 [facility] 12/18 08:57 Order name: O2 Sat Monitoring; Complete Time: 09:40 [facility] 12/18 08:57 Order name: Arrieta; Complete Time: 11:42 [facility] 12/18 08:57 Order name: Urine Dipstick-Ancillary (obtain specimen); Complete Time: 11:42 [facility] 12/18 08:57 Order name: IV Saline Lock - Large Bore; Complete Time: 11:09 [facility] 12/18 09:04 Order name: CT Traumagram (Head C Spine CAP wo con) 12/18 09:26 Order name: Central Line Kit; Complete Time: 09:40 [facility] 12/18 09:54 Order name: CT; Complete Time: 10:35 [facility] 12/18 09:55 Order name: RAD; Complete Time: 10:35 [facility] 12/18 10:25 Order name: Wound dressing: wet to dry; Complete Time: 19:18 [facility] 12/18 10:35 Order name: Labs - recollect needed: recollect cbc er2 hemolyzed per Roslyn/ inside eb lab has been messaged; Complete Time: 12:41 12/18 11:56 Order name: Transfuse; Complete Time: 12:41 [facility] 12/18 18:09 Order name: ABG Arterial Blood Gas EDIA EC:28 Rate is 65 beats/min. Rhythm is regular. QRS Spicer is Normal. CO interval is normal. QT erin interval is normal. No Q waves. T waves are Normal. T waves are Inverted in lead III. No ST changes noted. Clinical impression: NSR w/ Non-specific ST/T Changes, LVH, and No evidence of ischemia. Interpreted by me. Reviewed by me. Administered Medications: 10:15 Drug: NS 0.9% 1000 ml Route: IV; Rate: 1 bolus; Site: left wrist; ph 11:40 Follow up: Response: No adverse reaction; IV Status: Completed infusion; IV Intake: ph 1000ml 11:45 Drug: Pepcid (famotidine) 20 mg Route: IVP; Site: right femoral; ph 13:22 Follow up: Response: No adverse reaction ph 11:45 Drug: vancoMYCIN 1 grams Route: IVPB; Infused Over: 2 hrs; Site: right femoral; ph 13:45 Follow up: Response: No adverse reaction; IV Status: Completed infusion ph 11:45 Drug: NS 0.9% 1000 ml Route: IV; Rate: 1 bolus; Site: right femoral; ph 13:00 Follow up: Response: No adverse reaction; IV Status: Completed infusion; IV Intake: ph 1000ml 12:00 Drug: Meropenem 1 grams Route: IV; Rate: per protocol; Site: right femoral; ph 12:30 Follow up: Response: No adverse reaction; IV Status: Completed infusion; IV Intake: ph 100ml 13:20 Drug: NS 0.9% 1000 ml Route: IV; Rate: 125 ml/hr; Site: right femoral; ph 13:25 Follow up: Response: No adverse reaction; IV Status: Infusion continued upon admission ph 16:45 Drug: Levophed (norepinephrine) 0.1 mcg/kg/min {Note: started at 4mcg/min, non weight ph based dosing.} Route: IV; Rate: calculated rate; Site: right femoral; 18:00 Follow up: Response: No adverse reaction; IV Status: Infusion continued upon admission ph 16:45 Drug: Tylenol Suppository 650 mg Route: CO; ph 17:00 Follow up: Response: No adverse reaction ph 19:18 Not Given (Other Intervention Used): Dakin's Solution 0.25 % 1 application Topical once ph Disposition: 10:35 Critical Care:. 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 Total time: 60 minutes Signatures: Dispatcher [employer] Carmel Pearson RN RN dw Anderson, Corey, MD MD cha Hall, Patricia, RN RN Anila Sanabria Lynsay RN RN ll1 Corrections: (The following items were deleted from the chart) 10:43 10:37 Malini Addison [facility] 11:11 10:37 Telemetry/MedSurg (Inpatient) [facility] 11:11 10:37 [facility] 13:35 08:47 PSHx: Unable to Obtain; ll1 ph 15:13 11:11 [facility]
--- NOTE | 2022-12-18 10:37 | ER ---
Nurse's Notes [facility] Name: Lizbeth Snow Age: 82 yrs Sex: Female : 1940 Arrival Date: 12/18/2022 Time: 08:46 Bed 2 Private MD: Diagnosis: Severe sepsis without septic shock;Pressure ulcer of buttock-stage 2, with necrosis;Hypotension, unspecified;Altered mental status, unspecified;Acute kidney failure, unspecified;Dehydration;Pneumonia due to other specified bacteria-right lower lobe;UTI/ Urinary tract infection, site not specified;Anemia, unspecified;Elevated white blood cell count Presentation: 12/18 08:46 Chief complaint: EMS states: General weakness, lethargy, not eating well for 3 weeks ll1 since having hip surgery. No known fever. Coronavirus screen: Vaccine status: Patient reports receiving the 2nd dose of the covid vaccine. Client denies travel out of the [place] in the last 14 days. At this time, the client does not indicate any symptoms associated with coronavirus-19. Ebola Screen: Patient denies travel to an Ebola-affected area in the 21 days before illness onset. Initial Sepsis Screen: Does the patient meet any 2 criteria? No. Patient's initial sepsis screen is negative. Does the patient have a suspected source of infection? No. Patient's initial sepsis screen is negative. Risk Assessment: Do you want to hurt yourself or someone else? Patient reports no desire to harm self or others. Onset of symptoms was November 29, 2022. 08:46 Method Of Arrival: EMS ll1 08:46 Acuity: DREW 3 ll1 13:52 Acuity: DREW 2 ph Triage Assessment: 08:48 General: Appears uncomfortable, ill, Behavior is cooperative, appropriate for age, ll1 listless. Pain: Denies pain. Neuro: Reports weakness. Historical: - Allergies: 08:47 PENICILLINS; ll1 - Home Meds: 13:26 amlodipine 10 mg tab 1 tab once daily [Active]; aspirin 81 mg Oral cap 1 cap once daily ph [Active]; bisacodyl 10 mg Rectal supp 1 suppository as needed [Active]; carvedilol 12.5 mg oral tab 1 tab every 12 hours [Active]; Celexa 10 mg Oral tab 1 tab once daily [Active]; clopidogrel 75 mg oral tab 1 tab once daily [Active]; docusate sodium 100 mg Oral tab 1 tab once daily [Active]; donepezil 10 mg oral tab 1 tab once daily [Active]; lisinopril 20 mg Oral tab 1 tab twice a day [Active]; memantine 10 mg oral tab 1 tab 2 times per day [Active]; Santyl 250 unit/gram Topical oint once daily for sacral wound [Active]; acetaminophen-codeine 300-30 mg Oral tab 1 tab every 6 hours [Active]; B12 Active 1,000 mcg oral chew daily [Active]; ascorbic acid (vitamin C) 1,000 mg tab daily [Active]; zinc sulfate 50 mg zinc (220 mg) Oral tab daily [Active]; - PMHx: 08:47 Congestive heart failure; coronary atherosclerosis; Dementia; depressive disorder; ll1 Hypercholesterolemia; Hypertensive disorder; - PSHx: 13:26 left hip; ph - Immunization history:: Adult Immunizations up to date, . - Social history:: Smoking status: unknown. Screenin:41 [facility] ED Fall Risk Assessment (Adult) History of falling in the last 3 months, ph including since admission Yes- fall prone (multiple falls) (3 pts) Confusion or Disorientation Yes (5 pts) Intoxicated or Sedated No (0 pts) Impaired Gait Yes (1 pt) Mobility Assist Device Used Yes (1 pt) Altered Elimination Yes (1 pt) Score/Fall Risk Level 3 or more points = High Risk Oriented to surroundings, Maintained a safe environment, Hourly rounding (assess needs \T\ fall precautionary measures) done, Activated bed/chair alarm. Abuse screen: Denies threats or abuse. Denies injuries from another. Nutritional screening: No deficits noted. Tuberculosis screening: No symptoms or risk factors identified. Assessment: 09:00 General: Appears in no apparent distress. Behavior is drowsy, unresponsive. Pain: ph Unable to use pain scale. Does not appear to understand pain scale. Neuro: Level of Consciousness is lethargic, listless, Oriented to none. Cardiovascular: Capillary refill < 3 seconds in bilateral fingers Patient's skin is warm and dry. Rhythm is sinus rhythm. Respiratory: Airway is patent Respiratory effort is even, unlabored. GI: Abdomen is non-distended, Stools are reported to be loose, diarrhea. : Razo in place Urine is tea colored. Musculoskeletal: scar noted to L hip, s/p hip sx, no redness swelling or drainage. 10:00 Derm: Decubitus located on sacrum approximately > 20 cm is stage II. ph 12:00 Reassessment: Patient appears in no apparent distress at this time. No changes from ph previously documented assessment. 17:00 Reassessment: Patient appears in no apparent distress at this time. Patient and/or ph family updated on plan of care and expected duration. Pain level reassessed. Pt resting w/ eyes closed, report called to Armando RN in ICU. Vital Signs: 08:46 Temp 96.6(A); Pain 0/10; ll1 09:00 BP 85 / 62; Pulse 62; Resp 18; Pulse Ox 100% on R/A; Weight 74.84 kg; ph 09:30 BP 84 / 46; Pulse 61; Resp 19; Pulse Ox 100% on R/A; ph 10:00 BP 85 / 34; Pulse 56; Resp 18; Pulse Ox 100% on R/A; ph 10:30 BP 124 / 56; Pulse 67; Resp 16; Pulse Ox 100% on R/A; ph 11:00 BP 126 / 90; Pulse 62; Resp 17; Temp 96.6(C); Pulse Ox 98% on R/A; ph 11:44 BP 113 / 49; Pulse 63; Resp 16; Temp 97.3(C); Pulse Ox 98% on R/A; ph 12:00 BP 90 / 47; Pulse 64; Resp 18; Temp 97.4(C); Pulse Ox 99% on R/A; ph 12:30 BP 116 / 47; Pulse 69; Resp 16; Temp 97.0; Pulse Ox 100% on R/A; ph 13:00 BP 114 / 81; Pulse 70; Resp 18; Temp 96.8; Pulse Ox 98% on R/A; ph 13:30 BP 101 / 46; Pulse 64; Resp 15; Temp 97.1; Pulse Ox 98% ; ph 14:00 BP 114 / 46; Pulse 65; Resp 18; Pulse Ox 100% on R/A; ph 14:30 BP 126 / 112; Pulse 73; Resp 18; Pulse Ox 98% on R/A; ph 15:00 BP 105 / 50; Pulse 65; Resp 18; Temp 97.7; Pulse Ox 99% ; ph 15:30 BP 145 / 57; Pulse 79; Resp 18; Temp 98.3; Pulse Ox 95% on R/A; ph 16:00 BP 108 / 49; Pulse 83; Resp 18; Temp 100.3; Pulse Ox 96% on R/A; ph 16:30 BP 85 / 42; Pulse 82; Resp 18; Temp 100.7; Pulse Ox 98% on R/A; ph 17:01 BP 91 / 40; Pulse 85; Resp 14; Temp 100.3; Pulse Ox 98% on R/A; ph 17:12 BP 87 / 45; Pulse 86; Resp 16; Temp 100.1; Pulse Ox 99% on R/A; ph 18:15 BP 95 / 52; Pulse 89; Resp 18; Temp 99.3; Pulse Ox 98% on R/A; ph Vitals: 11:44 Cardiac Rhythm Assessment Sinus jd. ph ED Course: 08:46 Patient arrived in ED. ll1 08:47 Triage completed. ll1 08:48 Arm band placed on Patient placed in an exam room, on a stretcher. ll1 08:55 Wyatt Sevilla MD is Attending Physician. erin 09:03 Tayla Garcia RN is Primary Nurse. ph 09:42 Patient has correct armband on for positive identification. Placed in gown. Bed in low ph position. Call light in reach. Side rails up X2. Client placed on continuous cardiac and pulse oximetry monitoring. NIBP monitoring applied. 09:42 Maintain EMS IV. Dressing intact. Site clean \T\ dry. Gauge \T\ site: 22 L wrist. Missed ph attempt(s): 22 gauge in right forearm. 10:10 Assisted provider with central line placement. Set up central line tray. Triple lumen ph line placed in right femoral. Line placed by Wyatt Sevilla MD Placement verified by blood return, Dressed with Tape, Tegaderm, Blood was collected. Patient tolerated well. Before procedure, did Practitioner(s) obtain informed consent? No. Patient \T\ family education about procedure, CLABSI prevention and S/S of infection? Yes. Time-out/Briefing performed prior to start of procedure? Yes. Was handwashing/sanitizing done immediately prior to procedure? Yes. Was patient positioned to in a way to prevent air embolism? Yes. Was procedure site sterilized? Yes, with Was the site allowed to dry? Yes. Was local anesthetic and/or sedation utilized? Yes. During the procedure, did the Practitioner(s) maintain a sterile field? Yes. Were unused ports clamped during insertion? Yes. Was a 2nd qualified MD obtained after 3 unsuccessful insertion attempts? N/A. Was blood aspirated from each lumen? Yes. After the procedure, did the Practitioner(s) clean the site and apply a sterile dressing? Yes. 10:35 Malini Addison MD is Hospitalizing Provider. erin 10:43 Rafiq Avilez is Hospitalizing Provider. erin 10:45 Razo that pt arrived to ED with d/c. Razo cath inserted, using sterile technique, 16 ph Fr., by ma, balloon inflated, to gravity drainage, urine specimen collected. other Criticore razo inserted. Patient admitted, IV remains in place. 13:22 Notified ED physician of a critical lab result(s). Manual dif: L shift 16 % bands. ll1 Administered Medications: 10:15 Drug: NS 0.9% 1000 ml Route: IV; Rate: 1 bolus; Site: left wrist; ph 11:40 Follow up: Response: No adverse reaction; IV Status: Completed infusion; IV Intake: ph 1000ml 11:45 Drug: Pepcid (famotidine) 20 mg Route: IVP; Site: right femoral; ph 13:22 Follow up: Response: No adverse reaction ph 11:45 Drug: vancoMYCIN 1 grams Route: IVPB; Infused Over: 2 hrs; Site: right femoral; ph 13:45 Follow up: Response: No adverse reaction; IV Status: Completed infusion ph 11:45 Drug: NS 0.9% 1000 ml Route: IV; Rate: 1 bolus; Site: right femoral; ph 13:00 Follow up: Response: No adverse reaction; IV Status: Completed infusion; IV Intake: ph 1000ml 12:00 Drug: Meropenem 1 grams Route: IV; Rate: per protocol; Site: right femoral; ph 12:30 Follow up: Response: No adverse reaction; IV Status: Completed infusion; IV Intake: ph 100ml 13:20 Drug: NS 0.9% 1000 ml Route: IV; Rate: 125 ml/hr; Site: right femoral; ph 13:25 Follow up: Response: No adverse reaction; IV Status: Infusion continued upon admission ph 16:45 Drug: Levophed (norepinephrine) 0.1 mcg/kg/min {Note: started at 4mcg/min, non weight ph based dosing.} Route: IV; Rate: calculated rate; Site: right femoral; 18:00 Follow up: Response: No adverse reaction; IV Status: Infusion continued upon admission ph 16:45 Drug: Tylenol Suppository 650 mg Route: OK; ph 17:00 Follow up: Response: No adverse reaction ph 19:18 Not Given (Other Intervention Used): Dakin's Solution 0.25 % 1 application Topical once ph Medication: 09:43 VIS not applicable for this client. ph 13:15 Blood products: PRBCs X 1 unit given. ph Intake: 11:40 IV: 1000ml; Total: 1000ml. ph 12:30 IV: 100ml; Total: 1100ml. ph 13:00 IV: 1000ml; Total: 2100ml. ph Outcome: 10:37 Decision to Hospitalize by Provider. [facility] 18:28 Patient left the ED. [facility] 18:28 Admitted to ICU accompanied by nurse, accompanied by tech, via stretcher, room 1, on ph monitor, with chart, Report called to SHANNON Roberts 18:28 Condition: stable 18:28 Instructed on the need for admit. Signatures: Wyatt Sevilla MD MD cha Hall, Patricia, RN RN Mala Bautista RN RN [facility] Corrections: (The following items were deleted from the chart) 13:35 08:47 PSHx: Unable to Obtain; [facility] ph 16:50 16:45 Levophed (norepinephrine) 0.1 mcg/kg/min IV at calculated rate in right femoral phph
[2022-12-18 10:48] LABS: Albumin 1.8 g/dL (3.4-5.0); Bilirubin Direct 0.4 mg/dL (0-0.2); Bilirubin Total 0.7 mg/dL (0.2-1.0); Magnesium 2.7 mg/dL (1.6-2.4); Potassium 3.9 mmol/L (3.5-5.1); Protein, Total 6.1 g/dL (6.4-8.2); Troponin High Sensitivity 28.6 pg/mL (<58.9)
[2022-12-18 11:02] LABS: Urine Blood 3+ (Negative); Urine Glucose Trace (Negative); Urine Protein 3+ (Negative); Urine Specific Gravity 1.025 (1.005-1.030)
[2022-12-18 11:06] LABS: SARS-COV-2 RT PCR NEGATIVE (NEGATIVE)
[2022-12-18] MEDS ORDERED: VANCOMYCIN 1 GM/VIAL ONE (11:15)
[2022-12-18] MEDS ORDERED: NA CHLORIDE 0.9% 1,000 ML ONE ×2 (11:15→12:43)
[2022-12-18] MEDS ORDERED: Meropenem 1000 MG/VIAL IV ONE (11:15)
[2022-12-18] MEDS ORDERED: NA CHLORIDE 0.9% 250 ML ONE ×3 (11:15→22:38)
[2022-12-18] MEDS ORDERED: FAMOTIDINE 20 MG/2 ML VIAL IV ONE (11:16)
[2022-12-18] MEDS ORDERED: NA CHLORIDE 0.9% 100 ML ONE (11:16)
--- NOTE | 2022-12-18 11:29 | P.HP ---
Certification for Inpatient Patient admitted to: Inpatient With expected LOS: >2 Midnights Practitioner: I am a practitioner with admitting privileges, knowledge of patient current condition, hospital course, and medical plan of care. Services: Services provided to patient in accordance with Admission requirements found in Title 42 Section 412.3 of the Code of Federal Regulations Patient History Date of Service: 12/18/22 Reason for admission: Altered mental status History of Present Illness: 82-year-old -Indian woman was transferred from senior care to the emergency department because of generalized weakness, altered mental status, and lethargy. Per report patient has not been eating well for 3 weeks since her hip surgery. In the ED patient noted to have sacral decubitus ulcer with necrotic tissue, urine is concentrated. Patient with septic and hypotensive. Sepsis protocol initiated and patient aggressively resuscitated with IV fluid, started on antibiotics. Patient also noted to be anemic with hemoglobin of 8 and started on blood transfusion. She has been seen by surgery-Dr. Sykes who recommended surgical debridement of the sacral decubitus ulcer as soon as possible. Patient has advanced dementia and not able to give subjective complaint. She is hospitalized for further management. Allergies Penicillins Allergy (Verified 09/29/22 21:14) Itching Home Medications: Amlodipine [Norvasc] 10 mg PO DAILY 11/22/22 Ascorbic Acid [Vitamin C] 1,000 mg PO DAILY 11/22/22 Aspirin Chewable [Aspirin Chewable*] 81 mg PO DAILY 11/22/22 Carvedilol [Coreg] 12.5 mg PO Q12H 11/22/22 Citalopram [Celexa] 10 mg PO BEDTIME 11/22/22 Clopidogrel Bisulfate [Plavix] 75 mg PO DAILY 11/22/22 Cyanocobalamin (Vitamin B-12) [Vitamin B-12] 1,000 mcg PO DAILY 11/22/22 Docusate [Colace Cap] 100 mg PO DAILY 11/22/22 Donepezil HCl [Aricept] 10 mg PO BEDTIME 11/22/22 Memantine HCl [Namenda] 10 mg PO BID 11/22/22 Multivitamin with Minerals [One Daily Plus Minerals] 1 each PO DAILY 11/22/22 lisinopriL [Prinivil] 20 mg PO BID 11/22/22 Enoxaparin Sodium [Lovenox 40 MG INJ*] 40 mg SQ DAILY #1 ml 11/26/22 - Past Medical/Surgical History -: CHF -: CAD -: Hypertension -: Dementia -: Unable to obtain Psychosocial/ Personal History: Patient is a resident of [facility] - Social History Alcohol use: No Place of Residence: Assisted Review of Systems is unable to be obtained Physical Examination - Physical Exam General: In no apparent distress, Other (Somnolent) HEENT: PERRLA, Mucous membr. moist/pink, EOMI, Sclerae nonicteric Neck: Supple, JVD not distended Respiratory: Clear to auscultation bilaterally, Normal air movement Cardiovascular: Regular rate/rhythm, Normal S1 S2, No murmurs Gastrointestinal: Normal bowel sounds, Soft and benign, Non-distended Musculoskeletal: No swelling, No tenderness Integumentary: No cyanosis, Other (Stage IV sacral decubitus ulcer) Neurological: Other (Somnolent, withdraws both upper extremities to pain. No reaction from the lower extremities to pain) Lymphatics: No axilla or inguinal lymphadenopathy - Studies Laboratory Data (last 24 hrs) 12/18/22 10:10: PT 13.7 H, INR 1.25 12/18/22 10:10: Sodium 146 H, Potassium 3.9, BUN 45 H, Creatinine 2.46 H, Glucose 169 H, Magnesium 2.7 H, Total Bilirubin 0.7, AST 42 H, ALT 36, Alkaline Phosphatase 147 H Assessment and Plan - Problems (Diagnosis) (1) Septic shock Current Visit: Yes Status: Acute (2) Sacral decubitus ulcer, stage IV Current Visit: Yes Status: Acute (3) UTI (urinary tract infection) due to urinary indwelling Arrieta catheter Current Visit: Yes Status: Acute (4) Metabolic encephalopathy Current Visit: Yes Status: Acute (5) Anemia Current Visit: Yes Status: Acute (6) Acute renal failure Current Visit: Yes Status: Acute (7) Hypernatremia Current Visit: Yes Status: Acute - Plan Admit to the ICU Sepsis protocol initiated. Patient blood pressure responded well to initial IV fluid resuscitation. She is currently normotensive and has not required vasopressor. In the lactic acid elevated. Repeat lactate is pending. Aggressive antibiotics-IV meropenem and vancomycin. Aggressive IV fluid resuscitation with D5 normal saline. Will transition to D5 half-normal saline to treat hyponatremia once blood pressure has stabilized. Monitor renal function. Keep n.p.o. due to altered mental status Patient started on 1 unit PRBC for anemia. Hold antihypertensives. Follow cultures. General surgery consulted. Infectious disease consult. Arrieta catheter changed in the ED. - Advance Directives Does patient have a Living Will: No Does patient have a Durable POA for Healthcare: No
[2022-12-18 11:45] LABS: Absolute Lymphocytes (CBC) 0.5 K/uL (0.7-4.9); Hematocrit 24.7 % (36.0-45.0); Lymphocytes % 3.1 % (15.3-44.8); MCV 91.8 fL (80-100); MPV 8.1 fL (7.6-11.3); RBC Red Blood Cell Count 2.69 M/uL (3.86-4.86)
[2022-12-18 13:20] LABS: Anisocytosis 1+; Blood Morphology Comment NOTED (NOT SEEN); Platelet Estimate ADEQ; Platelets, Giant RARE; Poikilocytosis 1+
[2022-12-18] MEDS ORDERED: ACETAMINOPHEN 650MG/RECT SUPP PR ONE (16:40)
[2022-12-18] MEDS ORDERED: NOREPINEPHRINE BITARTRATE/D5W 4 MG/250 ML BAG IV ONE (16:40)
[2022-12-18] MEDS ORDERED: ONDANSETRON 4 MG/2 ML VIAL IV PRN (17:32)
[2022-12-18] MEDS ORDERED: VANCOMYCIN 1 GM in NA CHLORIDE 0.9% 250 ML IVPB SCH (17:32)
[2022-12-18] MEDS: D5 0.9 NS 1,000 ML IV SCH ×2 (17:32→19:33)
[2022-12-18] MEDS ORDERED: HEPARIN 5000 UNIT/ML 1 ML VIAL SQ SCH (17:32)
[2022-12-18] MEDS ORDERED: NA CHLORIDE 0.9% 500 ML IV ONE (17:32)
[2022-12-18 18:07] LABS: Arterial Blood Carboxyhemoglob 1.7 % (0-1.5); Blood O2 Saturation 91.8 % (92-98.5)
[2022-12-18] MEDS: NOREPINEPHRINE 4 MG in D5W 250 ML IV SCH ×2 (18:54→22:30)
[2022-12-18] MEDS: Meropenem 1,000 MG in NA CHLORIDE 0.9% 100 ML IV SCH (21:05)
[2022-12-18] MEDS ORDERED: AMIODARONE HCL 150 MG in D5W 100 ML IV STA (21:31)
[2022-12-18] MEDS ORDERED: AMIODARONE IN DEXTROSE,ISO-OSM 360 MG/200 ML BAG IV ONE (21:55)
[2022-12-18] MEDS ORDERED: HEPARIN/D5W 25,000 UNIT/500 ML BAG IV SCH (22:00)
[2022-12-18] MEDS ORDERED: AMIODARONE HCL 900 MG in Dextrose 5%-Water 482 ML IV SCH (22:00)
[2022-12-19] MEDS: NOREPINEPHRINE 4 MG in D5W 250 ML IV SCH ×2 (00:55→02:42)
[2022-12-19] MEDS: D5 0.9 NS 1,000 ML IV SCH ×3 (01:32→18:36)
[2022-12-19] MEDS ORDERED: NOREPINEPHRINE BITARTRATE/D5W 4 MG/250 ML BAG IV ONE ×2 (02:12→09:19)
[2022-12-19] MEDS ORDERED: AMIODARONE HCL 900 MG in Dextrose 5%-Water 482 ML IV SCH (04:00)
[2022-12-19] MEDS: AMIODARONE HCL 150 MG/3 ML INJ IV ONE ×2 (04:30→05:56)
[2022-12-19] MEDS ORDERED: AMIODARONE HCL 150 MG/3 ML INJ IV ONE (04:33)
[2022-12-19] MEDS ORDERED: D5W 250 ML IV ONE (04:34)
[2022-12-19 05:09] LABS: Protime INR 1.44
[2022-12-19 05:38] LABS: Magnesium 2.4 mg/dL (1.6-2.4); Phosphorus 4.3 mg/dL (2.5-4.9); Potassium 3.5 mmol/L (3.5-5.1); Thyroid Stimulating Hormone 0.924 uIU/mL (0.358-3.740)
[2022-12-19 07:50] LABS: Absolute Lymphocytes (CBC) 0.4 K/uL (0.7-4.9); Hematocrit 28.9 % (36.0-45.0); Lymphocytes % 2.5 % (15.3-44.8); MCV 88.6 fL (80-100); MPV 8.1 fL (7.6-11.3); RBC Red Blood Cell Count 3.27 M/uL (3.86-4.86)
[2022-12-19] MEDS: Meropenem 1,000 MG in NA CHLORIDE 0.9% 100 ML IV SCH ×2 (08:13→21:32)
--- NOTE | 2022-12-19 10:38 | P.CNS ---
Date of Consult: 12/19/22 Chief Complaint: Altered mental status History of Present Illness: 82-year-old -[place] woman [facility] from [facility] because of generalized weakness, altered mental status, and lethargy. Per report patient has not been eating well for 3 weeks since her hip surgery. In the ED patient noted to have sacral decubitus ulcer with necrotic tissue, urine is concentrated. Patient with septic and hypotensive. Sepsis protocol initiated and patient aggressively resuscitated with IV fluid, started on antibiotics. Patient also noted to be anemic with hemoglobin of 8 and started on blood transfusion. She has been seen by surgery-Dr. Sykes who recommended surgical debridement of the sacral decubitus ulcer as soon as possible. Patient has advanced dementia and not able to give subjective complaint. She is hospitalized for further management. ID has been consulted for IV antibiotics recommendations and management for possible bacteremia and UTI Allergies Penicillins Allergy (Verified 09/29/22 21:14) Itching Home Medications: Amlodipine [Norvasc] 10 mg PO DAILY 11/22/22 Ascorbic Acid [Vitamin C] 1,000 mg PO DAILY 11/22/22 Aspirin Chewable [Aspirin Chewable*] 81 mg PO DAILY 11/22/22 Carvedilol [Coreg] 12.5 mg PO Q12H 11/22/22 Citalopram [Celexa] 10 mg PO BEDTIME 11/22/22 Clopidogrel Bisulfate [Plavix] 75 mg PO DAILY 11/22/22 Cyanocobalamin (Vitamin B-12) [Vitamin B-12] 1,000 mcg PO DAILY 11/22/22 Docusate [Colace Cap] 100 mg PO DAILY 11/22/22 Donepezil HCl [Aricept] 10 mg PO BEDTIME 11/22/22 Memantine HCl [Namenda] 10 mg PO BID 11/22/22 Multivitamin with Minerals [One Daily Plus Minerals] 1 each PO DAILY 11/22/22 lisinopriL [Prinivil] 20 mg PO BID 11/22/22 Bisacodyl [Dulcolax*] 10 mg [place] DAILY PRN 12/18/22 Codeine/APAP [Tylenol #3*] 1 tab PO Q6H PRN 12/18/22 Collagenase [Santyl Ointment*] 1 appl TOP DAILY 12/18/22 Zinc Gluconate [Zinc] 50 mg PO DAILY 12/18/22 - Past Medical/Surgical History Diabetic: No -: CHF -: CAD -: Hypertension -: Dementia -: Left Hip surgery 2 weeks ago Psychosocial/ Personal History: Patient is a resident of [facility] - Social History Smoking Status: Unknown if ever smoked Alcohol use: No CD- Drugs: No Caffeine use: No Place of Residence: Care Home Review of Systems is unable to be obtained (secondary to dementia with no verbal response) Physical Examination Temp Pulse Resp BP Pulse Ox 96.9 F 95 H 17 112/58 L 100 12/19/22 00:00 12/19/22 06:00 12/19/22 06:00 12/19/22 06:00 12/19/22 06:00 General: Demented (secondary to dementia with no verbal response) Neck: Supple Respiratory: Clear to auscultation bilaterally Cardiovascular: Normal pulses, Normal S1 S2 Gastrointestinal: Normal bowel sounds Musculoskeletal: Other (Unstageable DTI in Sacral area and b/l heels) Integumentary: Pressure ulcer (Unstageable DTI in Sacral area and b/l heels) Neurological: Dementia (secondary to dementia with no verbal response) Urinary: Arrieta catheter (slim and cloudy) Laboratory Data (last 24 hrs) 12/18/22 10:10: Sodium 146 H, Potassium 3.9, BUN 45 H, Creatinine 2.46 H, Glucose 169 H, Magnesium 2.7 H, Total Bilirubin 0.7, AST 42 H, ALT 36, Alkaline Phosphatase 147 H Acetaminophen (Acetaminophen 500 Mg Tab) 500 mg PO Q4HP PRN PRN Reason: TEMP > 100' F Amiodarone HCl (Amiodarone Hcl 200 Mg Tab) 200 mg PO BID CLARIBEL Dextrose/Sodium Chloride (D5w Ns 1-Liter Bag) 1,000 mls @ 125 mls/hr IV .Q8H CLARIBEL Last Admin: 12/19/22 06:43 Dose: 1,000 mls Meropenem 1,000 mg/ Sodium (Chloride) 100 mls @ 200 mls/hr IV Q12HR CLARIBEL Last Admin: 12/19/22 08:13 Dose: 100 mls Heparin Sodium/Dextrose (Heparin Drip 25,000 Units/5oo Ml Premix) 25,000 unit in 500 mls @ 0 mls/hr IV UD CLARIBEL; Protocol Last Admin: 12/18/22 21:59 Dose: 500 mls Amiodarone HCl 900 mg/ (Dextrose) 500 mls @ 0 mls/hr IV CONT CLARIBEL; Protocol Stop: 12/19/22 20:00 Vancomycin HCl 1.25 gm/ Sodium (Chloride) 250 mls @ 125 mls/hr IVPB Q36H CLARIBEL Norepinephrine/Dextrose (Levophed 4 Mg/250 Ml-D5w) 4 mg in 250 mls @ 28.066 mls/hr IV TITR CLARIBEL; Protocol Mupirocin (Mupirocin 2% Oint 22gm Tube) 1 appl TOP BID CLARIBEL Ondansetron HCl (Ondansetron 4 Mg/2 Ml Vial) 4 mg IV Q6HP PRN PRN Reason: NAUSEA / VOMITING Sodium Chloride (Flush Normal Saline 10 Ml) 10 ml IV BID CLARIBEL Last Admin: 12/19/22 08:13 Dose: 10 ml Microbiology 12/18/22 10:10 Blood - Blood Aerobic Blood Culture - Preliminary No growth in 24 hours. 12/18/22 10:10 Blood - Blood Anaerobic Blood Culture - Preliminary 12/18/22 10:10 Blood - Blood Gram Stain - Preliminary - Problems (1) UTI (urinary tract infection) due to urinary indwelling Arrieta catheter Current Visit: Yes Status: Acute Plan: Cultures: 12/18 BC: Gram Pos Cocci in pairs and chain 12/18 UC: Gram Pos Vincent - pending for culture Antibiotics: Current on IV Meropenem and Vancomycin (12/18- ) Recommendations: Continue current IV Meropenem and Vancocmyin ID will recommend antibiotics drug of choice when cultures are available (2) Leukocytosis Current Visit: Yes Status: Acute Plan: WBC: 12/18: 16.8 Conclusions/Impression: - UTI (urinary tract infection) due to urinary indwelling Arrieta catheter - Septic shock: UTI vs. sacral decubitus ulcer - Sacral decubitus ulcer, stage IV: Possible Surgical debridement by Dr. Sykes - Unstageable DTI of heels - Severe protein calorie malnutrition - Anemia of chronic disease - Metabolic encephalopathy - Acute renal failure - Hypernatremia - CHF - CAD - Hypertension - Dementia - Left Hip surgery 2 weeks ago ID will closely monitor the patient with signs of infection with fever and WBC trends Case has been discussed with Dr. Alcantar N Thank you Dr. Avilez for consultation
[2022-12-19] MEDS: NOREPINEPHRINE BITARTRATE/D5W 4 MG/250 ML BAG IV SCH (12:00)
--- NOTE | 2022-12-19 12:32 | P.PN ---
Subjective Date of Service: 12/19/22 Chief Complaint: Altered mental status Patient with advanced dementia and not able to give any subjective complaint. Blood pressure has been stable. Patient developed rapid atrial fibrillation last night and started on amiodarone drip and heparin drip. Patient had episodes of fever yesterday. No fever today. Physical Examination - Vital Signs Temperature: 98.2 F Blood Pressure: 151/54 Pulse: 95 Respirations: 16 Pulse Ox (%): 100 Assessment And Plan - Current Problems (Diagnosis) (1) Septic shock Current Visit: Yes Status: Acute (2) Sacral decubitus ulcer, stage IV Current Visit: Yes Status: Acute (3) UTI (urinary tract infection) due to urinary indwelling Arrieta catheter Current Visit: Yes Status: Acute (4) Metabolic encephalopathy Current Visit: Yes Status: Acute (5) Anemia Current Visit: Yes Status: Acute (6) Acute renal failure Current Visit: Yes Status: Acute (7) Hypernatremia Current Visit: Yes Status: Acute - Plan Physical Exam General: In no apparent distress, Somnolent, nonverbal. HEENT: PERRLA, Mucous membr. moist/pink, EOMI, Sclerae nonicteric Neck: Supple, JVD not distended Respiratory: Clear to auscultation bilaterally, Normal air movement Cardiovascular: Regular rate/rhythm, Normal S1 S2, No murmurs Gastrointestinal: Normal bowel sounds, Soft and benign, Non-distended Musculoskeletal: No swelling, No tenderness Integumentary: No cyanosis, Other (Stage IV sacral decubitus ulcer) Neurological: Somnolent, withdraws right extremities to pain, no response on the left, does not obey commands. Patient blood pressure responded well to initial IV fluid resuscitation. She is currently normotensive and has not required vasopressor. Continue antibiotics-IV meropenem and vancomycin. Hypernatremia and ABDIRASHID significantly improved. Continue aggressive IV D5 normal saline. Monitor renal function and urine output. Dobhoff for feeding Status post 1 unit PRBC for anemia. Hold antihypertensives. Urine culture is growing gram-negative rods. Blood cultures: No growth to date Patient is scheduled for sacral decubitus ulcer debridement today. Seen by cardiology Dr. Mendoza for preop clearance. Dr. Mendoza recommend transitioning from amiodarone drip to oral amiodarone. Hold heparin drip for surgery Infectious disease consulted. Arrieta catheter changed in the ED. Prognosis guarded. DVT prophylaxis: Patient is on heparin drip.
[2022-12-19] MEDS ORDERED: VANCOMYCIN 1.25 GM in NA CHLORIDE 0.9% 250 ML IVPB SCH (13:00)
[2022-12-19] MEDS ORDERED: Ringers Lactate 1,000 ML IV ONE (15:12)
[2022-12-19] MEDS ORDERED: FENTANYL CITR 100 MCG/2 ML ONE (16:28)
[2022-12-19] MEDS ORDERED: propofoL 200 MG/20 ML VIAL IV ONE (16:28)
[2022-12-19] MEDS ORDERED: LIDOCAINE 2% MPF 5 ML VIAL ONE (16:30)
[2022-12-19] MEDS ORDERED: ETOMIDATE 20 MG/10 ML VIAL IV ONE (16:57)
--- NOTE | 2022-12-19 17:25 | P.PN ---
Date of Service: 12/20/22 Subjective: restarted on low dose levophed overnight stable, somnolent / nonverbal converted to sinus rhythm overnight ROS: A complete review of systems was unable to be performed Physical Exam: Gen: NAD, somnolent HEENT: normal conjunctiva, sclera anicteric CV: regular rate & rhythm, no edema Pulm: non-labored respirations, diminished bilaterally Abd: soft, non-distended Skin: sacral ulcer with dressing in place Neuro: somnolent, moves extremities vitals reviewed Problem List Septic shock secondary to UTI, necrotizing fasciitis UTI secondary to indwelling razo catheter sacral decubitus ulcer, stage IV; complicated by necrotizing fasciitis Metabolic encephalopathy Anemia, of chronic disease, recent surgery ABDIRASHID Hypernatremia Chronic Compensated Diastolic Congestive Heart Failure with Preserved Ejection Fraction Moderate Pulmonary Hypertension Coronary Artery Disease Moderate Tricuspid Regurgitation Hypertension Advanced Dementia requiring small amount of Levophed for blood pressure Continue antibiotics-IV meropenem and vancomycin. urine: klebsiella Blood cx: GPC and GNR Hypernatremia and ABDIRASHID significantly improved. Monitor renal function and urine output. Dobhoff for feeding Status post 1 unit PRBC for anemia. Hold antihypertensives. s/p debridement of sacral decubitus ulcer on 12/19 Dr. Sykes noted wound was consistent with necrotizing fasciitis may need PEG / Colostomy to assist in recovery Seen by cardiology Dr. Mendoza for preop clearance. new onset afib; iv amio converted to oral - via feeding tube anticoagulation held for surgery; restart tomorrow Infectious disease consulted. Razo catheter changed in the ED. Prognosis guarded. Code: full Dispo: continue ICU level of care prognosis guarded may need peg/colostomy later this hospitalization may need LTACH on discharge
--- NOTE | 2022-12-19 17:27 | P.OP ---
Preoperative diagnosis: Necrotizing Soft Tissue infection of Sacrum - pressure ulcer Postoperative diagnosis: Necrotizing Soft Tissue infection of Sacrum - pressure ulcer Primary procedure: Wide excisional debridement of necrotizing soft tissue infection Anesthesia: GETA Estimated blood loss: 100cc Specimen: debridement tissue, cultures Findings: 20cm x 15cm to sacral bone Stage IV ulcer with nec soft tissue infection Complications: None Transferred to: ICU Condition: Serious
--- NOTE | 2022-12-19 19:49 | RAD REPORT ---
EXAM DESCRIPTION: RAD - Abdomen 1 View (KUB) - 12/19/2022 7:07 pm CLINICAL HISTORY: Dobhoff placement COMPARISON: Chest Single View dated 12/18/2022 TECHNIQUE: Single AP view of the abdomen. FINDINGS: Weighted enteric tube tip projects over the gastric fundus. Linear radiodense structure pr ojecting over the right sacral ala, partially visualized, could represent a portion of a central vasc ular catheter. Nonobstructive bowel gas pattern. No air-fluid levels, free air, or pneumatosis. No suspicious calcif ications. No significant bony abnormality. IMPRESSION: Weighted enteric tube tip projecting over the gastric fundus. Nonobstructive bowel gas p attern.
--- NOTE | 2022-12-19 19:57 | OP ---
Date of Procedure: 12/19/2022 Surgeon: Duong Sykes MD, Preoperative Diagnosis: Necrotizing soft tissue infection of the sacrum-pressure ulcer. Postoperative Diagnosis: Necrotizing soft tissue infection of the sacrum-pressure ulcer. Procedure Performed: Wide excisional debridement of necrotizing soft tissue infection of sacrum. Anesthesia: General endotracheal. Estimated Blood Loss: 100 cc. Specimen: Debridement tissue and culture sent for both aerobic and anaerobic speciation. Findings: 20 cm x 15 cm necrotic pressure stage IV ulcer of the sacrum extending to the sacral bone with necrotizing soft tissue infection surrounding. Complications: None immediate. The patient transferred to ICU in serious condition. Procedure In Detail: After informed consent was obtained from the patient's daughter, the patient wa s prepped and draped in the usual sterile fashion. After adequate anesthesia was achieved, I dissect ed down through an area of obvious necrosis right at the border of necrotic and apparently viable tis annie on the buttock/sacral area with a 15 blade. I made circumferentially larger circles as I encount ered more and more necrotic soft tissue infection consistent with a necrotizing soft tissue infection . As such, I continued to debride the area and extended the dissection all the way circumferentially throughout adipose muscle and fascia extending to the sacral bone directly for approximately 20 cm x 15 cm area. All necrotic tissue was removed. I then pulse lavaged the buttock area, achieved hemos tasis with electrocautery and then packed the wound with Vashe-soaked Kerlix and a sterile dressing p laced over top. The patient tolerated the procedure without evidence of any complication and transfe rred to ICU in serious condition. All counts were correct at the end of the case. HILL/JAVAN Voice ID: [id number] Report ID: [id number]
[2022-12-19] MEDS: AMIODARONE HCL 200 MG TAB PO SCH ×2 (21:00→21:10)
[2022-12-19] MEDS: MUPIROCIN 2% OINT 22GM TUBE TOP SCH (21:12)
[2022-12-19] MEDS: JUVEN PACKET PO SCH (21:19)
[2022-12-19] MEDS: ENSURE ENLIVE 237 ML CAN PO SCH (21:19)
--- NOTE | 2022-12-19 23:39 | CON ---
Date of Consultation: 12/19/2022 Reason For Consultation: Preop eval for sacral decubitus ulcer debridement and atrial fibrillation. History Of Present Illness: This is an 82-year-old female with the past medical history of congestiv e heart failure, coronary artery disease, hypertension, and dementia. She is bedbound and has large decubitus ulcer. Apparently in the hospital, she was in atrial fibrillation. She was started on IV heparin and amiodarone drip because of rapid ventricular response. I was asked to assess the possibi lity to stop heparin briefly for the surgery. I saw the patient by bedside and she has not verbal an d could not get a very good history and she was rate controlled and she was on IV heparin for that pa rticular reason. Past Medical History: As outlined above in HPI. Medications: Refer to reconciliation sheet for detailed list. Allergies: PENICILLIN. Family History: No premature coronary artery disease or cancer. Social History: She does not smoke or drink. Does not use any drugs. Review of Systems: All systems reviewed and are negative except as mentioned in HPI. Physical Examination: Vital Signs: Reviewed. Head and Neck: Pupils are equal and reactive to light. Intact eye movements. No JVD. No cervical lymphadenopathy. Neck is supple. Thyroid is not enlarged. Lungs: Clear to auscultation bilaterally. No rhonchi, wheezing, or crackles. No accessory muscle u se. Heart: Irregularly irregular. No extra sounds. Abdomen: Soft, nontender. Bowel sounds positive. No organomegaly. No masses or hernia. No rigidi ty or rebound. Extremities: No edema, clubbing, or cyanosis. Intact pulses. Skin: No rash. Neurologic: Alert and awake with no new acute focal deficits appreciated. Investigations: Labs reviewed. Assessment And Recommendation: 1.Cardiac preoperative risk assessment. The patient is at least at moderate cardiac risk due to her overall comorbidities; however, she has infected decubitus ulcer. At this point, I recommend to pro ceed with surgery without delay and no further cardiac workup to be done prior to that, and we will m onitor the patient closely after surgery. 2.Atrial fibrillation with rapid ventricular response. I agree with amiodarone drip to finish the f ull 24 hours of amiodarone load and then switch to 200 mg by mouth twice a day and put her on Eliquis 2.5 mg twice a day through the PEG tube and can discontinue the heparin. 3.Congestive heart failure, appears to be euvolemic. Continue current medications. SR/MODL Voice ID: [id number] Report ID: [id number]
[2022-12-20] MEDS: D5 0.9 NS 1,000 ML IV SCH ×3 (03:50→20:08)
[2022-12-20] MEDS: NOREPINEPHRINE BITARTRATE/D5W 4 MG/250 ML BAG IV SCH (04:30)
[2022-12-20 05:30] LABS: Absolute Lymphocytes (CBC) 0.5 K/uL (0.7-4.9); Hematocrit 24.5 % (36.0-45.0); Lymphocytes % 3.3 % (15.3-44.8); MCV 88.7 fL (80-100); MPV 8.3 fL (7.6-11.3); RBC Red Blood Cell Count 2.76 M/uL (3.86-4.86)
[2022-12-20 05:55] LABS: Potassium 3.2 mmol/L (3.5-5.1)
[2022-12-20] MEDS: KCL 20 MEQ/100 mL IVPB 20 MEQ/100 ML BAG IV SCH ×2 (07:23→09:29)
[2022-12-20] MEDS: AMIODARONE HCL 200 MG TAB PO SCH ×2 (07:23→20:09)
[2022-12-20] MEDS: Meropenem 1,000 MG in NA CHLORIDE 0.9% 100 ML IV SCH ×2 (07:23→20:09)
[2022-12-20] MEDS: MUPIROCIN 2% OINT 22GM TUBE TOP SCH ×2 (07:24→20:10)
[2022-12-20] MEDS: ENSURE ENLIVE 237 ML CAN PO SCH ×2 (09:32→20:10)
[2022-12-20] MEDS: JUVEN PACKET PO SCH ×2 (09:32→20:10)
--- NOTE | 2022-12-20 10:07 | P.PN ---
Subjective Date of Service: 12/20/22 Chief Complaint: Altered mental status Patient lying in bed with no cardiopulmonary distress and still on Levophed. No verbal response and not following commands (dementia). Physical Examination - Vital Signs Temperature: 98.8 F Blood Pressure: 127/85 Pulse: 82 Respirations: 24 Pulse Ox (%): 100 - Physical Exam General: Demented (no verbal response, not following commands) Respiratory: Clear to auscultation bilaterally Cardiovascular: Normal pulses, Normal S1 S2 Gastrointestinal: Hypoactive, Other (DHT in right nostril) Musculoskeletal: Other (Sacral Stage IV and DTI b/l heels) Integumentary: Pressure ulcer (Sacral Stage IV and DTI b/l heels) Neurological: Dementia (no verbal response, not following commands) Urinary: Arrieta catheter (slim and clear) - Studies Acetaminophen (Acetaminophen 500 Mg Tab) 500 mg PO Q4HP PRN PRN Reason: TEMP > 100' F Amiodarone HCl (Amiodarone Hcl 200 Mg Tab) 200 mg PO BID [facility] Last Admin: 12/20/22 07:23 Dose: 200 mg Dextrose/Sodium Chloride (D5w Ns 1-Liter Bag) 1,000 mls @ 125 mls/hr IV .Q8H [facility] Last Admin: 12/20/22 03:50 Dose: 1,000 mls Meropenem 1,000 mg/ Sodium (Chloride) 100 mls @ 200 mls/hr IV Q12HR [facility] Last Admin: 12/20/22 07:23 Dose: 100 mls Vancomycin HCl 1.25 gm/ Sodium (Chloride) 250 mls @ 125 mls/hr IVPB Q36H [facility] Last Admin: 12/19/22 13:23 Dose: 250 mls Norepinephrine/Dextrose (Levophed 4 Mg/250 Ml-D5w) 4 mg in 250 mls @ 28.066 mls/hr IV TITR [facility]; Protocol Last Titration: 12/20/22 06:43 Dose: 0.02 mcg/kg/min, 5.6 mls/hr Potassium Chloride (Kcl 20 Meq/100 Ml Ivpb (Premix)) 20 meq in 100 mls @ 50 mls/hr IV Q2H [facility]; Protocol Stop: 12/20/22 10:59 Last Admin: 12/20/22 09:29 Dose: 100 mls L-Arginine/L-Glutamine/HMB (Mendez Packet) 1 pkt PO BID [facility] Last Admin: 12/20/22 09:32 Dose: 1 pkt Morphine Sulfate (Morphine 2 Mg/Ml Syr) 2 mg IV Q4H PRN PRN Reason: Pain scale 5-7 (Moderate) Mupirocin (Mupirocin 2% Oint 22gm Tube) 1 appl TOP BID [facility] Last Admin: 12/20/22 07:24 Dose: 1 jenaro Nutritional Formula (Ensure Enlive 237 Ml Can) 237 ml PO BID [facility] Last Admin: 12/20/22 09:32 Dose: 237 ml Ondansetron HCl (Ondansetron 4 Mg/2 Ml Vial) 4 mg IV Q6HP PRN PRN Reason: NAUSEA / VOMITING Sodium Chloride (Flush Normal Saline 10 Ml) 10 ml IV BID [facility] Last Admin: 12/20/22 07:23 Dose: 10 ml Microbiology Data (last 24 hrs): Microbiology 12/18/22 10:52 Blood - Blood Aerobic Blood Culture - Preliminary No growth in 24 hours. 12/18/22 10:52 Blood - Blood Blood Culture Gram Stain - Final 12/18/22 10:52 Blood - Blood Anaerobic Blood Culture - Preliminary No growth in 24 hours. 12/18/22 10:52 Blood - Blood Gram Stain - Final 12/18/22 10:10 Blood - Blood Aerobic Blood Culture - Preliminary Gram Neg Vincent 12/18/22 10:10 Blood - Blood Anaerobic Blood Culture - Preliminary 12/18/22 10:10 Blood - Blood Gram Stain - Preliminary Assessment And Plan - Current Problems (Diagnosis) (1) UTI (urinary tract infection) due to urinary indwelling Arrieta catheter Current Visit: Yes Status: Acute Plan: Cultures: 12/18 BC: Gram Pos Cocci in pairs and chain and Gram Neg Vincent. Pending for culture 12/18 UC: GNR; Klebsiella pneumoniae, susceptible to Meropenem Antibiotics: Current on IV Meropenem and Vancomycin (12/18- ) Recommendations: Continue current IV Meropenem and Vancocmyin ID will recommend antibiotics drug of choice when cultures are available (2) Sacral decubitus ulcer, stage IV Current Visit: Yes Status: Acute Plan: Cultures: 12/19 Sacral Wound: WBC +; Gram Pos Cocci in Prs & Chs; Gram Neg Vincent: Pending for cultures 12/18 BC: Gram Pos Cocci in pairs and chain and Gram Neg Vincent. Pending for culture Antibiotics: Current on IV Meropenem and Vancomycin (12/18- ) Recommendations: Continue current IV Meropenem and Vancocmyin ID will recommend antibiotics drug of choice when cultures are available 12/19: Dr. Sykes performed Wide excisional debridement of necrotizing soft tissue infection: 20cm x 15cm to sacral bone Stage IV ulcer with necrotic soft tissue infection (3) Leukocytosis Current Visit: Yes Status: Acute Plan: UTI vs sacral stage IV pressure ulcer WBC: 12/18: 16.8 12/19: 14.1, trending down - Plan - UTI (urinary tract infection) due to urinary indwelling Arrieta catheter: Continue on IV Meropenem and Vancomycin - Septic shock: UTI vs. sacral decubitus ulcer: Continue on IV Meropenem and Vancomycin - Sacral decubitus ulcer, stage IV: Dr. Sykes performed Wide excisional debridement of necrotizing soft tissue infection: 20cm x 15cm to sacral bone Stage IV ulcer with necrotic soft tissue infection on 12/19 - Unstageable DTI of heels - Severe protein calorie malnutrition - Anemia of chronic disease - Metabolic encephalopathy - Acute renal failure - Hypernatremia - CHF - CAD - Hypertension - Dementia - Left Hip surgery 2 weeks ago ID will closely monitor the patient with signs of infection with fever and WBC trends Case has been discussed with Dr. Alcantar N
[2022-12-20] MEDS: VANCOMYCIN 1.25 GM in NA CHLORIDE 0.9% 250 ML IVPB SCH (11:46)
--- NOTE | 2022-12-20 17:17 | EKG ---
Test Date: 2022-12-18 Test Time: 21:18:30 Copy Worker: LISSETTE MEASUREMENT RESULTS: Intervals: Rate: 134 [place]: QRSD: 76 QT: 288 QTc: 430 [place]: P: NC: QRS: -4 T: 201 INTERPRETIVE STATEMENTS: Atrial fibrillation with rapid ventricular response with premature ventricular or aberrantly conducted complexes ST & T wave abnormality, consider inferolateral ischemia or digitalis effect Abnormal ECG Compared to ECG 12/18/2022 18:49:31 Left ventricular hypertrophy no longer present ST (T wave) deviation still present Possible ischemia still present Electronically Signed On 12-20-22 17:11:13 RAPID EXTRACTOR OPERATOR by Delvin Mendoza
--- NOTE | 2022-12-20 17:18 | EKG ---
Test Date: 2022-12-18 Test Time: 18:49:31 Jig Bore Operator: LISSETTE MEASUREMENT RESULTS: Intervals: Rate: 90 [place]: QRSD: 76 QT: 362 QTc: 442 [place]: P: [place]: QRS: -12 T: 114 INTERPRETIVE STATEMENTS: Atrial fibrillation with premature ventricular or aberrantly conducted complexes Minimal voltage criteria for LVH, may be normal variant ST & T wave abnormality, consider anterolateral ischemia or digitalis effect Abnormal ECG Compared to ECG 12/18/2022 18:46:27 Ventricular premature complex(es) now present ST (T wave) deviation now present Possible ischemia now present Early repolarization no longer present Electronically Signed On 12-20-22 17:11:44 FOAM CASTER by Delvin Mendoza
--- NOTE | 2022-12-20 17:18 | EKG ---
Test Date: 2022-12-18 Test Time: 18:46:27 Antenna Machine Operator: LISSETTE MEASUREMENT RESULTS: Intervals: Rate: 82 MN: 110 QRSD: 76 QT: 386 QTc: 450 [place]: P: -90 MN: 110 QRS: -9 T: 113 INTERPRETIVE STATEMENTS: Unusual P axis and short MN, probable junctional tachycardia with premature supraventricular complexes with occasional prematur Left ventricular hypertrophy with repolarization abnormality Abnormal ECG Compared to ECG 11/29/2022 12:53:09 Early repolarization now present Sinus rhythm no longer present Ventricular premature complex(es) no longer present ST (T wave) deviation no longer present Electronically Signed On 12-20-22 17:11:58 GARDEN MACHINERY MECHANIC by Delvin Mendoza
--- NOTE | 2022-12-20 17:20 | EKG ---
Test Date: 2022-12-18 Test Time: 11:27:45 Microbiology Instructor: VANE MEASUREMENT RESULTS: Intervals: Rate: 65 [place]: 114 QRSD: 80 QT: 420 QTc: 436 [place]: P: 57 [place]: 114 QRS: -14 T: 10 INTERPRETIVE STATEMENTS: Sinus rhythm with premature supraventricular complexes Moderate voltage criteria for LVH, may be normal variant Nonspecific ST and T wave abnormality Abnormal ECG Compared to ECG 11/29/2022 12:53:09 Atrial premature complex(es) now present Ventricular premature complex(es) no longer present ST (T wave) deviation still present Electronically Signed On 12-20-22 17:14:04 CREW ATTENDANT by Delvin Mendoza
[2022-12-20] MEDS ORDERED: POTASSIUM 25 MEQ EFFERV TAB PO ONE (21:30)
[2022-12-21 05:00] LABS: Absolute Lymphocytes (CBC) 0.6 K/uL (0.7-4.9); Hematocrit 23.7 % (36.0-45.0); Lymphocytes % 5.1 % (15.3-44.8); MCV 89.2 fL (80-100); MPV 8.1 fL (7.6-11.3); RBC Red Blood Cell Count 2.66 M/uL (3.86-4.86)
[2022-12-21 05:21] LABS: Albumin 1.4 g/dL (3.4-5.0); Bilirubin Total 0.4 mg/dL (0.2-1.0); Magnesium 2.2 mg/dL (1.6-2.4); Potassium 3.7 mmol/L (3.5-5.1); Protein, Total 5.1 g/dL (6.4-8.2)
[2022-12-21] MEDS: D5 0.9 NS 1,000 ML IV SCH (06:03)
--- NOTE | 2022-12-21 06:36 | P.PN ---
Date of Service: 12/21/22 Subjective: no acute events overnight withdraws to pain, mumbles, seems to be trying to respond at times somnolent off levophed last night ROS: A complete review of systems was unable to be performed Physical Exam: Gen: NAD, somnolent HEENT: normal conjunctiva, sclera anicteric CV: regular rate & rhythm, trace edema Pulm: non-labored respirations, diminished bilaterally Abd: soft, non-distended Skin: sacral ulcer with dressing in place Neuro: somnolent, withdraws extremities to pain vitals reviewed Problem List Septic shock secondary to UTI, necrotizing fasciitis UTI secondary to indwelling razo catheter sacral decubitus ulcer, stage IV; complicated by necrotizing fasciitis Metabolic encephalopathy Anemia, of chronic disease, recent surgery ABDIRASHID Hypernatremia Chronic Compensated Diastolic Congestive Heart Failure with Preserved Ejection Fraction Moderate Pulmonary Hypertension Coronary Artery Disease Moderate Tricuspid Regurgitation Hypertension Advanced Dementia requiring small amount of Levophed for blood pressure - dc'd again on 12/20 evening Continue antibiotics-IV meropenem and vancomycin. urine: klebsiella Blood cx: growing proteus ID consulted Hypernatremia and ABDIRASHID significantly improved. Monitor renal function and urine output. Dobhoff for feeding - re-consult lead burner supervisor for tube feeds. Patient not alert/awake enough to take PO on her own Status post 1 unit PRBC for anemia. Hold antihypertensives. s/p debridement of sacral decubitus ulcer on 12/19 Dr. Sykes noted wound was consistent with necrotizing fasciitis may need PEG / Colostomy to assist in recovery Seen by cardiology Dr. Mendoza for preop clearance. new onset afib; iv amio converted to oral - via feeding tube anticoagulation held for surgery Razo catheter changed in the ED. Prognosis guarded. Code: full Dispo: continue ICU level of care prognosis guarded may need peg/colostomy later this hospitalization likely will need LTACH on discharge, ~1 week
[2022-12-21] MEDS ORDERED: D5 0.45 NS 1,000 ML IV SCH (07:00)
[2022-12-21] MEDS: MUPIROCIN 2% OINT 22GM TUBE TOP SCH ×2 (07:57→20:31)
[2022-12-21] MEDS: AMIODARONE HCL 200 MG TAB PO SCH ×2 (07:57→20:30)
[2022-12-21] MEDS: ENSURE ENLIVE 237 ML CAN PO SCH ×2 (07:58→22:01)
[2022-12-21] MEDS: JUVEN PACKET PO SCH ×2 (07:58→22:02)
[2022-12-21] MEDS: Meropenem 1,000 MG in NA CHLORIDE 0.9% 100 ML IV SCH ×2 (08:04→20:30)
[2022-12-21] MEDS ORDERED: POTASSIUM 25 MEQ EFFERV TAB PO ONE (09:00)
--- NOTE | 2022-12-21 09:15 | P.PN ---
Subjective Date of Service: 12/21/22 Chief Complaint: Altered mental status Patient lying in bed with no cardiopulmonary distress. No verbal response and not following commands (dementia). Physical Examination - Vital Signs Temperature: 97.0 F Blood Pressure: 107/87 Pulse: 87 Respirations: 21 Pulse Ox (%): 100 - Physical Exam General: Demented Respiratory: Rhonchi/gurgles (b/l) Cardiovascular: Normal S1 S2 Gastrointestinal: Normal bowel sounds Musculoskeletal: Other (Sacral stage IV and b/l heels DTI) Integumentary: Skin lesion, Tenderness/swelling, Erythema, Pressure ulcer (Sacral stage IV and b/l heels DTI) Neurological: Dementia Urinary: Arrieta catheter (slim and clear) - Studies Current medications Acetaminophen (Acetaminophen 500 Mg Tab) 500 mg PO Q4HP PRN PRN Reason: TEMP > 100' F Amiodarone HCl (Amiodarone Hcl 200 Mg Tab) 200 mg PO BID [facility] Last Admin: 12/21/22 07:57 Dose: 200 mg Collagenase (Collagenase 30 Gm Ointment) 1 appl TOP DAILY [facility] Meropenem 1,000 mg/ Sodium (Chloride) 100 mls @ 200 mls/hr IV Q12HR [facility] Last Admin: 12/21/22 08:04 Dose: 100 mls Norepinephrine/Dextrose (Levophed 4 Mg/250 Ml-D5w) 4 mg in 250 mls @ 28.066 mls/hr IV TITR [facility]; Protocol Last Titration: 12/20/22 21:15 Dose: 0 mcg/kg/min, 0 mls/hr Vancomycin HCl 1.25 gm/ Sodium (Chloride) 250 mls @ 125 mls/hr IVPB Q24H [facility] Last Admin: 12/20/22 11:46 Dose: 250 mls Dextrose/Sodium Chloride (Dextrose 5% O.45% Saline) 1,000 mls @ 75 mls/hr IV .[id number] [facility] Last Admin: 12/21/22 07:23 Dose: 1,000 mls L-Arginine/L-Glutamine/HMB (Mendez Packet) 1 pkt PO BID [facility] Last Admin: 12/21/22 07:58 Dose: 1 pkt Morphine Sulfate (Morphine 2 Mg/Ml Syr) 2 mg IV Q4H PRN PRN Reason: Pain scale 5-7 (Moderate) Mupirocin (Mupirocin 2% Oint 22gm Tube) 1 appl TOP BID [facility] Last Admin: 12/21/22 07:57 Dose: 1 jenaro Nutritional Formula (Ensure Enlive 237 Ml Can) 237 ml PO BID [facility] Last Admin: 12/21/22 07:58 Dose: 237 ml Ondansetron HCl (Ondansetron 4 Mg/2 Ml Vial) 4 mg IV Q6HP PRN PRN Reason: NAUSEA / VOMITING Sodium Chloride (Flush Normal Saline 10 Ml) 10 ml IV BID [facility] Last Admin: 12/21/22 07:59 Dose: 10 ml Microbiology Data (last 24 hrs): Microbiology 12/18/22 10:52 Blood - Blood Aerobic Blood Culture - Preliminary No growth in 24 hours. 12/18/22 10:52 Blood - Blood Blood Culture Gram Stain - Final 12/18/22 10:52 Blood - Blood Anaerobic Blood Culture - Preliminary 12/18/22 10:52 Blood - Blood Gram Stain - Final 12/18/22 10:10 Blood - Blood Aerobic Blood Culture - Preliminary Gram Neg Vincent Proteus Mirabilis 12/18/22 10:10 Blood - Blood Anaerobic Blood Culture - Preliminary Proteus Mirabilis 12/18/22 10:10 Blood - Blood Gram Stain - Preliminary Assessment And Plan - Current Problems (Diagnosis) (1) Bacteremia Current Visit: Yes Status: Acute Plan: Secondary to UTI vs Sacral pressure ulcer Cultures: 12/18 BC: Gram Pos Cocci in pairs and chain and Gram Neg Vincent - Proteus mirabilis, susceptible to Meropenem 12/18 UC: GNR; Klebsiella pneumoniae, susceptible to Meropenem Antibiotics: Current on IV Meropenem and Vancomycin (12/18- ) Recommendations: Continue current IV Meropenem for total of 2 week when repeated blood culture is negative (2) UTI (urinary tract infection) due to urinary indwelling Arrieta catheter Current Visit: Yes Status: Acute Plan: Cultures: 12/18 BC: Gram Pos Cocci in pairs and chain and Gram Neg Vincent - Proteus mirabilis, susceptible to Meropenem 12/18 UC: GNR; Klebsiella pneumoniae, susceptible to Meropenem Antibiotics: Current on IV Meropenem and Vancomycin (12/18- ) Recommendations: Continue current IV Meropenem Continue current IV Meropenem for total of 2 week when repeated blood culture is negative (3) Sacral decubitus ulcer, stage IV Current Visit: Yes Status: Acute Plan: Cultures: 12/19 Sacral Wound: WBC +; Gram Pos Cocci in Prs & Chs; Gram Neg Vincent: Pending for cultures 12/18 BC: Gram Pos Cocci in pairs and chain and Gram Neg Vincent. Pending for culture Antibiotics: Current on IV Meropenem and Vancomycin (12/18- ) Recommendations: Continue current IV Meropenem and Vancocmyin ID will recommend antibiotics drug of choice when cultures are available 12/19: Dr. Sykes performed Wide excisional debridement of necrotizing soft tissue infection: 20cm x 15cm to sacral bone Stage IV ulcer with necrotic soft tissue infection (4) Leukocytosis Current Visit: Yes Status: Acute Plan: UTI vs sacral stage IV pressure ulcer WBC: 12/19: 16.8 12/20: 14.1 12/21: 12.4, trending down - Plan - Bacteremia: UTI vs. Sacral decubitus - UTI (urinary tract infection) due to urinary indwelling Arrieta catheter: Continue on IV Meropenem and Vancomycin - Septic shock: UTI vs. sacral decubitus ulcer: Continue on IV Meropenem and Vancomycin - Sacral decubitus ulcer, stage IV: Dr. Sykes performed Wide excisional debridement of necrotizing soft tissue infection: 20cm x 15cm to sacral bone Stage IV ulcer with necrotic soft tissue infection on 12/19 - Unstageable DTI of heels - Severe protein calorie malnutrition - Anemia of chronic disease - Metabolic encephalopathy - Acute renal failure - Hypernatremia - CHF - CAD - Hypertension - Dementia - Left Hip surgery 2 weeks ago ID will closely monitor the patient with signs of infection with fever and WBC trends Case has been discussed with Dr. Alcantar N
--- NOTE | 2022-12-21 11:33 | RAD REPORT ---
EXAM DESCRIPTION: Kushal Single View12/21/2022 10:55 am CLINICAL HISTORY: Chest pain COMPARISON: December 19, 2022 FINDINGS: Mild right basilar opacity has partially resolved. Left lung appears clear of acute infiltrate. Heart is borderline enlarged. Right hemidiaphragm remains elevated Feeding tube with its tip near the junction of gastric fundus and body
[2022-12-21] MEDS: VANCOMYCIN 1.25 GM in NA CHLORIDE 0.9% 250 ML IVPB SCH (11:34)
[2022-12-21] MEDS: D5W 1,000 ML IV SCH ×2 (11:43→22:03)
[2022-12-21 11:44] LABS: Specific Gravity 1.015 (1.005-1.030); Urine Bacteria <20 /HPF (<20); Urine Bilirubin NEGATIVE (Negative); Urine Blood 3+ (OVER) (Negative); Urine Clarity Clear (Clear); Urine Color Light-Yellow (Yellow); Urine Glucose NEGATIVE (Negative); Urine Mucus Slight /HPF (None Seen); Urine Protein TRACE (Negative); Urine RBC <5 /HPF (None Seen); Urine Urobilinogen Normal (Normal)
[2022-12-21] MEDS ORDERED: KCL 20 MEQ/100 mL IVPB 20 MEQ/100 ML BAG IV SCH (12:10)
[2022-12-21 12:26] LABS: UR PROTEIN 45.3 mg/dL (<11.9); Urine Protein/Creatinine Ratio 1.13 ratio (<0.15)
--- NOTE | 2022-12-21 13:01 | CON ---
Date of Consultation: 12/21/2022 History Of Present Illness: All the information has been obtained from the record as the patient has advanced dementia. This is a pleasant 82-year-old female with significant past medical history of dementia, hypertension, hyperlipidemia, CAD complicated with CHF, the patient was brought to the hospital because of poor intake since her hip surgery. Upon arrival to the hospital, the patient has anemia and severe hypernatremia. For that reason, we have been consulted. Reviewing the record of the patient on previous admission, the patient was on lisinopril, no diuresis. When she left, her sodium was 145, currently 150. Past Medical History: Includes; 1. CAD complicated with congestive heart failure. 2. Hypertension. 3. Hyperlipidemia. 4. Dementia. Home Medications: Include amlodipine, aspirin, vitamin C, , Namenda, multivitamin, lisinopril. Allergies: NO KNOWN DRUGS ALLERGY. Review of Systems: None obtainable. Social History: Lives in senior care. The rest is none obtainable. Past Surgical History: Hip surgery. Physical Examination: General: When I saw the patient; the patient sleepy. Vital Signs: Blood pressure 150/58, pulse of 90, afebrile. Chest: Clear to auscultation. Heart: S1, S2. Regular. Abdomen: Soft, nontender. Extremity: No edema. The patient has NG tube feed. Laboratory Data: Sodium 150, potassium 3.7, bicarb 26, chloride 112, BUN 20, creatinine 0.5, calcium 7.6, hemoglobin 7.8. Upon discharge from the hospital was within normal limit. Urinalysis; specific gravity 1.015, no urine infection. Chest x-ray; cardiomegaly, marginal congestion. Assessment And Plan: 1. Hypernatremia, depletional, total water deficit 3 L and insensible loss around 700 with urine output of 1000 total of around 4500 to 5 L. I am going to go ahead and send for uric acid, urine electrolyte, and repeat UA. We will monitor. I am going to go ahead and change IV fluid to plain D5 at rate of 100, which is going to provide around 2.5 L and we will start free water through the NG tube 100 per 4 hour, which is going to provide another 600 total of 3 L as replacement with deficit left of 2 L, goal for correction around between 140 and 145 by tomorrow. We will follow up. 2. Hypokalemia. We will supplement. I am going to go ahead and monitor further the patient. 3. Hypertension. I am going to go ahead and resume lisinopril and we will follow up the patient. 4. Altered mental status secondary to metabolic encephalopathy. We will follow up with primary. 5. Advanced dementia as by primary. time spend exam the patient face to face , reviewing data lab and radiology placing order , discussing with anastasia member nursing and hospitalist >35 min JOCELIN Voice ID: [id number] Report ID: [id number] MTDD
[2022-12-21] MEDS: lisinopriL 20 MG TAB PO SCH (13:15)
[2022-12-21] MEDS: COLLAGENASE 30 GM OINTMENT TOP SCH (14:15)
[2022-12-21] MEDS: MORPHINE 2 MG/ML SYR IV PRN (14:57)
[2022-12-22 05:10] LABS: Absolute Lymphocytes (CBC) 0.9 K/uL (0.7-4.9); Hematocrit 25.5 % (36.0-45.0); Lymphocytes % 8.1 % (15.3-44.8); MCV 88.4 fL (80-100); MPV 7.8 fL (7.6-11.3); RBC Red Blood Cell Count 2.89 M/uL (3.86-4.86)
[2022-12-22 05:18] LABS: Albumin 1.6 g/dL (3.4-5.0); Phosphorus 1.7 mg/dL (2.5-4.9); Uric Acid 4.2 mg/dL (2.6-6.0)
[2022-12-22] MEDS ORDERED: POTASSIUM PHOS IN 0.9 % NACL 15 MMOL/250 ML BAG IV ONE (06:00)
--- NOTE | 2022-12-22 06:40 | P.PN ---
Date of Service: 12/22/22 Subjective: no acute events overnight remains off levophed opens eyes to verbal stimuli, attempts to respond to questions wiggled toes slightly when asked ROS: A complete review of systems was unable to be performed Physical Exam: Gen: NAD, somnolent HEENT: normal conjunctiva, sclera anicteric CV: regular rate & rhythm, trace edema Pulm: non-labored respirations, diminished bilaterally Abd: soft, non-distended Skin: sacral ulcer with dressing in place Neuro: somnolent, slightly wiggled toes when asked vitals reviewed Problem List Septic shock secondary to UTI, necrotizing fasciitis UTI secondary to indwelling razo catheter sacral decubitus ulcer, stage IV; complicated by necrotizing fasciitis Metabolic encephalopathy Anemia, of chronic disease, recent surgery ABDIRASHID Hypernatremia Chronic Compensated Diastolic Congestive Heart Failure with Preserved Ejection Fraction Moderate Pulmonary Hypertension Coronary Artery Disease Moderate Tricuspid Regurgitation Hypertension Advanced Dementia requiring small amount of Levophed for blood pressure - dc'd again on 12/20 evening Continue antibiotics- urine: klebsiella Blood cx: proteus Wound: proteus ID consulted for antibiotic assistance Hypernatremia and ABDIRASHID significantly improved. Monitor renal function and urine output. Dobhoff for feeding - re-consult [employer] for tube feeds. Patient not alert/awake enough to take PO on her own Status post 1 unit PRBC for anemia. Hold antihypertensives. s/p debridement of sacral decubitus ulcer on 12/19 Dr. Sykes noted wound was consistent with necrotizing fasciitis may need PEG / Colostomy to assist in recovery Seen by cardiology Dr. Mendoza for preop clearance. new onset afib; iv amio converted to oral - via feeding tube anticoagulation held for surgery Razo catheter changed in the ED. Prognosis guarded. Code: full Dispo: continue ICU level of care prognosis guarded, improving may need peg/colostomy later this hospitalization likely will need LTACH on discharge, ~1 week
[2022-12-22] MEDS: MUPIROCIN 2% OINT 22GM TUBE TOP SCH ×2 (07:45→21:00)
[2022-12-22] MEDS: COLLAGENASE 30 GM OINTMENT TOP SCH (07:45)
[2022-12-22] MEDS: lisinopriL 20 MG TAB PO SCH (07:52)
[2022-12-22] MEDS: AMIODARONE HCL 200 MG TAB PO SCH ×2 (07:52→21:16)
[2022-12-22] MEDS: ENSURE ENLIVE 237 ML CAN PO SCH (07:53)
[2022-12-22] MEDS: D5W 1,000 ML IV SCH ×2 (07:56→12:00)
[2022-12-22] MEDS: JUVEN PACKET PO SCH ×2 (07:58→21:00)
[2022-12-22] MEDS: Meropenem 1,000 MG in NA CHLORIDE 0.9% 100 ML IV SCH ×2 (07:58→21:00)
--- NOTE | 2022-12-22 08:19 | P.PN ---
Subjective Date of Service: 12/22/22 Chief Complaint: Altered mental status Patient lying in bed with stridor breathing sound heard/noted. No verbal response and not following commands (dementia). Physical Examination - Vital Signs Temperature: 97.8 F Blood Pressure: 155/54 Pulse: 71 Respirations: 18 Pulse Ox (%): 100 - Physical Exam General: Demented Respiratory: Stridor Cardiovascular: No edema, Normal S1 S2 Gastrointestinal: Normal bowel sounds, Other (DHT in place) Musculoskeletal: Erythema, Tenderness, Other (Sacral stage IV and b/l heels DTI) Integumentary: Tenderness/swelling, Pressure ulcer (Sacral stage IV and b/l heels DTI) Neurological: Dementia Urinary: Arrieta catheter (yellow and clear with sediments) - Studies Active medications Acetaminophen (Acetaminophen 500 Mg Tab) 500 mg PO Q4HP PRN PRN Reason: TEMP > 100' F Amiodarone HCl (Amiodarone Hcl 200 Mg Tab) 200 mg PO BID [facility] Last Admin: 12/22/22 07:52 Dose: 200 mg Collagenase (Collagenase 30 Gm Ointment) 1 appl TOP DAILY [facility] Last Admin: 12/22/22 07:45 Dose: 1 appl Meropenem 1,000 mg/ Sodium (Chloride) 100 mls @ 200 mls/hr IV Q12HR [facility] Last Admin: 12/22/22 07:58 Dose: 100 mls Norepinephrine/Dextrose (Levophed 4 Mg/250 Ml-D5w) 4 mg in 250 mls @ 28.066 mls/hr IV TITR [facility]; Protocol Last Titration: 12/20/22 21:15 Dose: 0 mcg/kg/min, 0 mls/hr Vancomycin HCl 1.25 gm/ Sodium (Chloride) 250 mls @ 125 mls/hr IVPB Q24H [facility] Last Admin: 12/21/22 11:34 Dose: 250 mls Dextrose/Water (Dextrose In Water (1-Liter)) 1,000 mls @ 100 mls/hr IV .Q10H [facility] Last Admin: 12/22/22 07:56 Dose: 1,000 mls Potassium Phosphate (Potassium Phos 15 Mmol/250 Ml Ns) 15 mmol in 250 mls @ 62.5 mls/hr IV 1X ONE; Protocol Stop: 12/22/22 09:59 Last Admin: 12/22/22 06:19 Dose: 250 mls L-Arginine/L-Glutamine/HMB (Mendez Packet) 1 pkt PO BID [facility] Last Admin: 12/22/22 07:58 Dose: 1 pkt Lisinopril (Lisinopril 20 Mg Tab) 20 mg PO DAILY [facility] Last Admin: 12/22/22 07:52 Dose: 20 mg Morphine Sulfate (Morphine 2 Mg/Ml Syr) 2 mg IV Q4H PRN PRN Reason: Pain scale 5-7 (Moderate) Last Admin: 12/21/22 14:57 Dose: 2 mg Mupirocin (Mupirocin 2% Oint 22gm Tube) 1 appl TOP BID [facility] Last Admin: 12/22/22 07:45 Dose: 1 jenaro Nutritional Formula (Ensure Enlive 237 Ml Can) 237 ml PO BID [facility] Last Admin: 12/22/22 07:53 Dose: 237 ml Ondansetron HCl (Ondansetron 4 Mg/2 Ml Vial) 4 mg IV Q6HP PRN PRN Reason: NAUSEA / VOMITING Sodium Chloride (Flush Normal Saline 10 Ml) 10 ml IV BID [facility] Last Admin: 12/22/22 07:53 Dose: 10 ml Microbiology Data (last 24 hrs): Microbiology 12/18/22 10:10 Blood - Blood Aerobic Blood Culture - Preliminary Gram Neg Vincent Proteus Mirabilis 12/18/22 10:10 Blood - Blood Anaerobic Blood Culture - Preliminary Proteus Mirabilis 12/18/22 10:10 Blood - Blood Gram Stain - Preliminary 12/18/22 10:52 Blood - Blood Aerobic Blood Culture - Preliminary Proteus Mirabilis 12/18/22 10:52 Blood - Blood Blood Culture Gram Stain - Final 12/18/22 10:52 Blood - Blood Anaerobic Blood Culture - Preliminary 12/18/22 10:52 Blood - Blood Gram Stain - Final Assessment And Plan - Current Problems (Diagnosis) (1) Bacteremia Plan: Secondary to UTI vs Sacral pressure ulcer Cultures: 12/18 BC: Gram Pos Cocci in pairs and chain and Gram Neg Vincent - Proteus mirabilis, susceptible to Meropenem and Cefepime 12/18 UC: GNR; Klebsiella pneumoniae, susceptible to Meropenem and Cefepime Antibiotics: Current on IV Meropenem and Vancomycin (12/18- ) Recommendations: - Stop Meropenem - Switch to IV Cefepime for total of 2 weeks when repeated blood culture is negative (2) UTI (urinary tract infection) due to urinary indwelling Arrieta catheter Plan: Cultures: 12/18 BC: Gram Pos Cocci in pairs and chain and Gram Neg Vincent - Proteus mirabilis, susceptible to Meropenem and Cefepime 12/18 UC: GNR; Klebsiella pneumoniae, susceptible to Meropenem and Cefepime Antibiotics: Current on IV Meropenem and Vancomycin (12/18- ) Recommendations: - Stop Meropenem - Switch to IV Cefepime for total of 2 weeks when repeated blood culture is negative (3) Sacral decubitus ulcer, stage IV Plan: Cultures: 12/19 Sacral Wound: WBC +; Gram Pos Cocci in Prs & Chs; Gram Neg Vincent: Proteus mirabilis and Proteus mirabilis #2 both susceptible to Meropenem and Cefepime Antibiotics: Current on IV Meropenem and Vancomycin (12/18- ) Recommendations: - Continue IV Vancomycin - Stop Meropenem and Switch to IV Cefepime - The course of IV antibiotics should be for total of 6 weeks duration - Long-Term Acute Care facility should be taken into consideration for aggressive IV antibiotics, wound care management, and renal function monitoring 12/19: Dr. Sykes performed Wide excisional debridement of necrotizing soft tissue infection: 20cm x 15cm to sacral bone Stage IV ulcer with necrotic soft tissue infection; possible PEG and colostomy placement to assist in recovery (4) Leukocytosis Plan: UTI vs sacral stage IV pressure ulcer WBC: 12/19: 16.8 12/20: 14.1 12/21: 12.4, 12/22: 11.7, trending down - Plan - Bacteremia: UTI vs. Sacral decubitus: Need IV antibiotics for total of 6 weeks duration and consider LTAC placement for aggressive treatment - UTI (urinary tract infection) due to urinary indwelling Arrieta catheter: Continue on IV Meropenem and Vancomycin - Septic shock: UTI vs. sacral decubitus ulcer: Continue on IV Meropenem and Vancomycin - Sacral decubitus ulcer, stage IV: Dr. Sykes performed Wide excisional debridement of necrotizing soft tissue infection: 20cm x 15cm to sacral bone Stage IV ulcer with necrotic soft tissue infection on 12/19 - Unstageable DTI of heels - Severe protein calorie malnutrition - Anemia of chronic disease - Metabolic encephalopathy - Acute renal failure - Hypernatremia - CHF - CAD - Hypertension - Dementia - Left Hip surgery 2 weeks ago ID will closely monitor the patient with signs of infection with fever and WBC trends Case has been discussed with Dr. Alcantar N
[2022-12-22] MEDS: VANCOMYCIN 1.25 GM in NA CHLORIDE 0.9% 250 ML IVPB SCH (12:00)
--- NOTE | 2022-12-22 12:04 | PN ---
Date of Progress Note: 12/22/2022 Subjective: The patient was admitted with hypernatremia, electrolyte imbalance, and hypokalemia. The patient has dementia with poor intake. The patient was started on D5, sodium started trending down. The patient still altered mental status. Physical Examination: Vital Signs: Blood pressure 155/54, pulse of 71, afebrile. Chest: Wheezing bilateral. Heart: S1, S2. Regular. Abdomen: Soft, nontender. Extremities: No edema. Neuro: The patient sleepy, poorly responsive. Laboratory Data: Hemoglobin 8.6. Sodium 141, potassium 4, bicarb 28, BUN 17, creatinine 0.5. Calcium 8.1, uric acid 4.2, phosphorus 1.7, albumin 1.6, corrected calcium is 10. Current Medications: The patient on include: 1. Lisinopril. 2. Amiodarone. 3. Meropenem. 4. Vancomycin. 5. Jevity. 6. D5 at 100 per hour. The patient had urine output of 2200, the patient positive of 1800. Assessment And Plan: 1. Hypernatremia secondary to depletional. Continue to recover, appropriate trend down in her sodium. I am going to decrease IV fluid to 50 per hour. Continue free water and we will monitor. 2. Hypokalemia, resolved. 3. Hypophosphatemia. I am going to go ahead and continue replacement, and we will follow up. 4. Malnourished. Continue tube feeding. 5. Coronary artery disease with history of congestive heart failure, currently wheezing. I going to go ahead and get chest x-ray for evaluation. If the patient is going to need any diuresis, we will follow up. time spend exam the patient face to face , reviewing data lab and radiology placing order , discussing with anastasia member nursing and hospitalist >35 min JOCELIN Voice ID: [id number] Report ID: [id number] MTDD
[2022-12-22] MEDS: MORPHINE 2 MG/ML SYR IV PRN (12:19)
[2022-12-22] MEDS: VANCOMYCIN 1.5 GM in NA CHLORIDE 0.9% 500 ML IVPB SCH (12:57)
[2022-12-22] MEDS: ACETAMINOPHEN 500 MG TAB PO PRN (13:00)
--- NOTE | 2022-12-22 15:32 | RAD REPORT ---
EXAM DESCRIPTION: Kushal Single View12/22/2022 3:21 pm CLINICAL HISTORY: Wheezing COMPARISON: December 21, 2022 FINDINGS: Elevation right hemidiaphragm unchanged. Lungs appear clear of acute infiltrate. Borderline cardiomegaly Feeding tube within gastric fundus
[2022-12-22] MEDS: VITAL AF 1,000 ML BOT RTH SCH (16:00)
--- NOTE | 2022-12-22 22:00 | RAD REPORT ---
EXAM DESCRIPTION: RAD - Abdomen 1 View (KUB) - 12/22/2022 9:51 pm CLINICAL HISTORY: Device placement enteric tube placement FINDINGS: An enteric tube has been placed into the gastric fundus 9 centimeters from the GE junctio n
[2022-12-22] MEDS: CEFEPIME 2 GM in NA CHLORIDE 0.9% 100 ML IV SCH (22:43)
[2022-12-23] MEDS ORDERED: D10W 250 ML IV SCH ×3 (01:00→06:00)
[2022-12-23] MEDS: D5W 1,000 ML IV SCH ×3 (01:07→23:33)
[2022-12-23 05:10] LABS: Absolute Lymphocytes (CBC) 0.9 K/uL (0.7-4.9); Hematocrit 24.3 % (36.0-45.0); Lymphocytes % 9.6 % (15.3-44.8); MPV 7.9 fL (7.6-11.3); RBC Red Blood Cell Count 2.73 M/uL (3.86-4.86)
[2022-12-23 05:26] LABS: Albumin 1.5 g/dL (3.4-5.0); Magnesium 1.7 mg/dL (1.6-2.4); Phosphorus 2.8 mg/dL (2.5-4.9); Potassium 3.7 mmol/L (3.5-5.1)
[2022-12-23] MEDS ORDERED: MAGNESIUM SULFATE 1 gm IVPB 1 GM/100 ML BAG IV ONE (05:45)
[2022-12-23] MEDS ORDERED: KCL 20 MEQ/100 mL IVPB 20 MEQ/100 ML BAG IV SCH (06:00)
--- NOTE | 2022-12-23 06:23 | P.PN ---
Date of Service: 12/23/22 Subjective: slightly more awake/alert weak low glucose levels overnight despite d5 / tube feeds ROS: A complete review of systems was unable to be performed Physical Exam: Gen: NAD, somnolent, opens eyes to verbal stimuli, oriented to self HEENT: normal conjunctiva, sclera anicteric CV: regular rate & rhythm, trace edema Pulm: non-labored respirations, diminished bilaterally Abd: soft, non-distended Skin: sacral ulcer with dressing in place vitals reviewed razo in place Problem List Septic shock secondary to UTI, necrotizing fasciitis UTI secondary to indwelling razo catheter sacral decubitus ulcer, stage IV; complicated by necrotizing fasciitis Metabolic encephalopathy Anemia, of chronic disease, recent surgery ABDIRASHID Hypernatremia Chronic Compensated Diastolic Congestive Heart Failure with Preserved Ejection Fraction Moderate Pulmonary Hypertension Coronary Artery Disease Moderate Tricuspid Regurgitation Hypertension Advanced Dementia required small amount of Levophed for blood pressure - dc'd again 12/20 evening Continue antibiotics urine: klebsiella Blood cx: proteus Wound: proteus, e.coli ID consulted for antibiotic assistance IV vanc and cefepime Hypernatremia and ABDIRASHID significantly improved. Monitor renal function and urine output. Dobhoff for feeding - re-consult compliance administrator for tube feeds. Patient not alert/awake enough to take PO on her own Status post 1 unit PRBC for anemia. Hold antihypertensives. monitor blood glucose levels, check cortisol level this morning s/p debridement of sacral decubitus ulcer on 12/19 Dr. Sykes noted wound was consistent with necrotizing fasciitis may need PEG / Colostomy to assist in recovery Seen by cardiology Dr. Mendoza for preop clearance. new onset afib; iv amio converted to oral - via feeding tube anticoagulation held for surgery Razo catheter changed in the ED. Prognosis guarded. Code: full Dispo: continue ICU level of care may need peg/colostomy later this hospitalization likely will need LTACH on discharge, ~1 week
[2022-12-23] MEDS: MUPIROCIN 2% OINT 22GM TUBE TOP SCH ×2 (07:19→19:56)
[2022-12-23] MEDS: lisinopriL 20 MG TAB PO SCH (07:20)
[2022-12-23] MEDS ORDERED: CEFEPIME 2 GM VIAL ONE (07:20)
[2022-12-23] MEDS: COLLAGENASE 30 GM OINTMENT TOP SCH (07:42)
[2022-12-23] MEDS: AMIODARONE HCL 200 MG TAB PO SCH ×2 (07:42→19:58)
[2022-12-23] MEDS: CEFEPIME 2 GM in NA CHLORIDE 0.9% 100 ML IV SCH ×2 (07:43→19:58)
[2022-12-23] MEDS: JUVEN PACKET PO SCH ×2 (07:44→19:57)
--- NOTE | 2022-12-23 07:59 | P.PN ---
Subjective Date of Service: 12/23/22 Chief Complaint: Altered mental status Patient lying in bed with no more stridor breathing. No verbal response and not following commands (dementia). Per bedside RN, patient started having some vaginal discharge yesterday Physical Examination - Vital Signs Temperature: 99.1 F Blood Pressure: 108/81 Pulse: 74 Respirations: 18 Pulse Ox (%): 100 - Physical Exam General: Demented Respiratory: Clear to auscultation bilaterally Cardiovascular: No edema, Normal S1 S2 (DHT in place) Gastrointestinal: Other Musculoskeletal: Erythema (Sacral stage IV and b/l heels DTI), Tenderness, Other Integumentary: Tenderness/swelling, Erythema, Pressure ulcer (Sacral stage IV and b/l heels DTI) Neurological: Dementia Urinary: Arrieta catheter (yellow and clear with sediments) - Studies active medications Acetaminophen (Acetaminophen 500 Mg Tab) 500 mg PO Q4HP PRN PRN Reason: TEMP > 100' F Last Admin: 12/22/22 13:00 Dose: 500 mg Amiodarone HCl (Amiodarone Hcl 200 Mg Tab) 200 mg PO BID [facility] Last Admin: 12/23/22 07:42 Dose: 200 mg Collagenase (Collagenase 30 Gm Ointment) 1 appl TOP DAILY [facility] Last Admin: 12/23/22 07:42 Dose: 1 appl Norepinephrine/Dextrose (Levophed 4 Mg/250 Ml-D5w) 4 mg in 250 mls @ 28.066 mls/hr IV TITR [facility]; Protocol Last Titration: 12/20/22 21:15 Dose: 0 mcg/kg/min, 0 mls/hr Dextrose/Water (Dextrose In Water (1-Liter)) 1,000 mls @ 50 mls/hr IV .Q20H [facility] Last Admin: 12/23/22 01:07 Dose: 1,000 mls Vancomycin HCl 1.5 gm/ Sodium (Chloride) 500 mls @ 250 mls/hr IVPB Q24H [facility] Last Admin: 12/22/22 12:57 Dose: 500 mls Cefepime HCl 2 gm/ Sodium (Chloride) 100 mls @ 200 mls/hr IV Q12HR [facility]; Protocol Last Admin: 12/23/22 07:43 Dose: 100 mls Potassium Chloride (Kcl 20 Meq/100 Ml Ivpb (Premix)) 20 meq in 100 mls @ 50 mls/hr IV 1X [facility]; Protocol Stop: 12/23/22 07:59 Last Admin: 12/23/22 06:16 Dose: 100 mls L-Arginine/L-Glutamine/HMB (Mendez Packet) 1 pkt PO BID [facility] Last Admin: 12/23/22 07:44 Dose: 1 pkt Lisinopril (Lisinopril 20 Mg Tab) 20 mg PO DAILY [facility] Last Admin: 12/23/22 07:20 Dose: 20 mg Morphine Sulfate (Morphine 2 Mg/Ml Syr) 2 mg IV Q4H PRN PRN Reason: Pain scale 5-7 (Moderate) Last Admin: 12/22/22 12:19 Dose: 2 mg Mupirocin (Mupirocin 2% Oint 22gm Tube) 1 appl TOP BID [facility] Last Admin: 12/23/22 07:19 Dose: 1 jenaro Nutritional Formula (Vital Af 1,000 Ml Bot) 0 ml RTH CONT [facility] Last Admin: 12/22/22 16:00 Dose: 1,000 ml Ondansetron HCl (Ondansetron 4 Mg/2 Ml Vial) 4 mg IV Q6HP PRN PRN Reason: NAUSEA / VOMITING Sodium Chloride (Flush Normal Saline 10 Ml) 10 ml IV BID [facility] Last Admin: 12/23/22 07:42 Dose: 10 ml Microbiology Data (last 24 hrs): Microbiology 12/18/22 10:52 Blood - Blood Aerobic Blood Culture - Preliminary Proteus Mirabilis 12/18/22 10:52 Blood - Blood Blood Culture Gram Stain - Final 12/18/22 10:52 Blood - Blood Anaerobic Blood Culture - Preliminary 12/18/22 10:52 Blood - Blood Gram Stain - Final 12/18/22 10:10 Blood - Blood Aerobic Blood Culture - Preliminary Gram Neg Vincent Proteus Mirabilis 12/18/22 10:10 Blood - Blood Anaerobic Blood Culture - Preliminary Proteus Mirabilis 12/18/22 10:10 Blood - Blood Gram Stain - Preliminary Imagings Data: RADChest Single View12/22/2022 INDINGS: Elevation right hemidiaphragm unchanged. Lungs appear clear of acute infiltrate. Borderline cardiomegaly Feeding tube within gastric fundus RAD - Abdomen 1 View (KUB) - 12/22/2022 FINDINGS: An enteric tube has been placed into the gastric fundus 9 centimeters from the GE junction Assessment And Plan - Current Problems (Diagnosis) (1) Bacteremia Plan: Secondary to UTI vs Sacral pressure ulcer Cultures: 12/18 BC: Gram Pos Cocci in pairs and chain and Gram Neg Vincent - Proteus mirabilis, susceptible to Meropenem and Cefepime 12/18 UC: GNR; Klebsiella pneumoniae, susceptible to Meropenem and Cefepime Antibiotics: Current on IV Cefepime (12/22- ) and Vancomycin (12/18- ) Recommendations: - Continue IV Cefepime for total of 2 weeks when repeated blood culture is negative - Repeat BC (2) UTI (urinary tract infection) due to urinary indwelling Arrieta catheter Plan: Cultures: 12/18 BC: Gram Pos Cocci in pairs and chain and Gram Neg Vincent - Proteus mirabilis, susceptible to Meropenem and Cefepime 12/18 UC: GNR; Klebsiella pneumoniae, susceptible to Meropenem and Cefepime Antibiotics: Current on IV Cefepime (12/22- ) and Vancomycin (12/18- ) Recommendations: - Continue IV Cefepime for total of 2 weeks when repeated blood culture is negative - Add Fluconazole 100 mg, PO, daily for total of 7 days for vaginal discharge (3) Sacral decubitus ulcer, stage IV Plan: Cultures: 12/19 Sacral Wound: WBC +; Gram Pos Cocci in Prs & Chs; Gram Neg Vincent: Proteus mirabilis and E. Coli both susceptible to Meropenem and Cefepime Antibiotics: Current on IV Cefepime (12/22- ) and Vancomycin (12/18- ) Recommendations: - Continue IV Vancomycin and Cefepime - The course of IV antibiotics should be for total of 6 weeks duration - Long-Term Acute Care facility should be taken into consideration for aggressive IV antibiotics, wound care management, and renal function monitoring 12/19: Dr. Sykes performed Wide excisional debridement of necrotizing soft tissue infection: 20cm x 15cm to sacral bone Stage IV ulcer with necrotic soft tissue infection; possible PEG and colostomy placement to assist in recovery (4) Leukocytosis Plan: UTI vs sacral stage IV pressure ulcer WBC: 12/19: 16.8 12/20: 14.1 12/21: 12.4 12/22: 11.7 12/23: 9, Normal - Plan - Bacteremia: UTI vs. Sacral decubitus: Need IV antibiotics for total of 6 weeks duration and consider LTAC placement for aggressive treatment - UTI (urinary tract infection) due to urinary indwelling Arrieta catheter: Continue on IV Cefepime and Vancomycin; Fluconazole added - Septic shock: UTI vs. sacral decubitus ulcer: Continue on IV Meropenem and Vancomycin - Sacral decubitus ulcer, stage IV: Dr. Sykes performed Wide excisional debridement of necrotizing soft tissue infection: 20cm x 15cm to sacral bone Stage IV ulcer with necrotic soft tissue infection on 12/19 - Unstageable DTI of heels - Severe protein calorie malnutrition - Anemia of chronic disease - Metabolic encephalopathy - Acute renal failure - Hypernatremia - CHF - CAD - Hypertension - Dementia - Left Hip surgery 2 weeks ago ID will closely monitor the patient with signs of infection with fever and WBC trends Case has been discussed with Dr. Alcantar N
[2022-12-23] MEDS ORDERED: NA CHLORIDE 0.9% 100 ML ONE (08:03)
[2022-12-23 12:16] LABS: Phosphorus 2.9 mg/dL (2.5-4.9)
--- NOTE | 2022-12-23 13:08 | P.PN ---
Subjective Date of Service: 12/23/22 Chief Complaint: Altered mental status Subjective: No new changes Physical Examination - Vital Signs Temperature: 99.1 F Blood Pressure: 108/81 Pulse: 74 Respirations: 18 Pulse Ox (%): 100 - Physical Exam General: Other (chronically ill-appearing, bedridden) HEENT: Atraumatic, Normocephalic, Other (+NGT) Neck: Supple Respiratory: Diminished Cardiovascular: No rubs, No murmurs Gastrointestinal: Soft and benign Musculoskeletal: No clubbing Integumentary: No warmth Neurological: Dementia Urinary: Other (no bladder distention) External genitalia: Deferred Rectal: Deferred - Studies Microbiology Data (last 24 hrs): 12/18/22 10:52 Blood - Blood Blood Culture Gram Stain - Final 12/18/22 10:52 Blood - Blood Gram Stain - Final Assessment And Plan - Plan 1. Hypernatremia resolved. Cont NG tube hydration. goals of CARE discussion with family ongoing. If they decide not to transition to hospice, patient will need gastrostomy tube placement to maintain adequate hydration and normonatremia. 2. Hypokalemia, resolved. KCl repletion prn. 3. Hypophosphatemia. Phos repletion prn. 4. Malnourished. Continue tube feeding. 5. Coronary artery disease with history of congestive heart failure. Per other services. [place] po/tube hydration. 6. Hypoglycemia 2/2 poor nutrition. On dextrose IV gtt. Give thiamine 500 g IV every 8 hours 3 doses to prevent neurologic/GI beriberi. 7. Bacteremia, UTI, sacral decubitus ulcer. +indwelling razo. Abx per other services. 8. Advanced dementia. Supportive care. 9. ABDIRASHID 2/2 prerenal state. Resolved. Tube hydration as above. 10. Dispo. Hospice eligible. Recommend transition to hospice.
[2022-12-23] MEDS: FLUCONAZOLE 100 MG TAB PO SCH (13:28)
[2022-12-23] MEDS: VANCOMYCIN 1.5 GM in NA CHLORIDE 0.9% 500 ML IVPB SCH (13:29)
[2022-12-23] MEDS: MORPHINE 2 MG/ML SYR IV PRN (13:29)
[2022-12-23] MEDS: THIAMINE 200 MG/2 ML INJ IVP SCH ×2 (15:31→22:00)
[2022-12-24] MEDS: MORPHINE 2 MG/ML SYR IV PRN ×2 (00:39→12:54)
[2022-12-24 06:01] VITALS: BMI 28.5
[2022-12-24 06:03] LABS: Hematocrit 24.3 % (36.0-45.0); Lymphocytes % 13.1 % (15.3-44.8); MCV 88.6 fL (80-100); MPV 7.6 fL (7.6-11.3); RBC Red Blood Cell Count 2.74 M/uL (3.86-4.86)
--- NOTE | 2022-12-24 06:17 | P.PN ---
Date of Service: 12/24/22 Subjective: no acute events overnight patient remains off levophed not verbal for me, nursing staff states she said 1-2 words yesterday told me her name ROS: A complete review of systems was unable to be performed Physical Exam: Gen: NAD, somnolent, opens eyes to verbal stimuli HEENT: normal conjunctiva, sclera anicteric CV: regular rate & rhythm, trace-1+ b/l pedal edema Pulm: non-labored respirations, diminished bilaterally Abd: soft, non-distended Skin: sacral ulcer with dressing in place vitals reviewed razo in place Problem List Septic shock secondary to UTI, necrotizing fasciitis UTI secondary to indwelling razo catheter sacral decubitus ulcer, stage IV; complicated by necrotizing fasciitis Metabolic encephalopathy Anemia, of chronic disease, recent surgery ABDIRASHID Hypernatremia Chronic Compensated Diastolic Congestive Heart Failure with Preserved Ejection Fraction Moderate Pulmonary Hypertension Coronary Artery Disease Moderate Tricuspid Regurgitation Hypertension Advanced Dementia required small amount of Levophed for blood pressure - dc'd 12/20 evening Continue antibiotics urine: klebsiella Blood cx: proteus Wound: proteus, e.coli ID consulted for antibiotic assistance IV vanc and cefepime Hypernatremia and ABDIRASHID significantly improved. Monitor renal function and urine output. Dobhoff for feeding - re-consulted last sawyer for tube feeds. Patient not alert/awake enough to take PO on her own Status post 1 unit PRBC for anemia. Hold antihypertensives. monitor blood glucose levels, check cortisol level this morning s/p debridement of sacral decubitus ulcer on 12/19 Dr. Sykes noted wound was consistent with necrotizing fasciitis will need PEG / Colostomy to assist in recovery if that would be in line with patient's wishes updated family 12/23; discussed prognosis, aggressive vs hospice. family to discuss further and get back to us Seen by cardiology Dr. Mendoza for preop clearance. new onset afib; iv amio converted to oral - via feeding tube anticoagulation held for surgery Razo catheter changed in the ED. Prognosis guarded. Code: full Dispo: continue ICU level of care may need peg/colostomy later this hospitalization likely will need LTACH on discharge, ~1 week vs hospice; family discussing
[2022-12-24 06:21] LABS: Albumin 1.5 g/dL (3.4-5.0); Phosphorus 3.1 mg/dL (2.5-4.9); Potassium 4.2 mmol/L (3.5-5.1)
[2022-12-24] MEDS: CEFEPIME 2 GM in NA CHLORIDE 0.9% 100 ML IV SCH ×2 (08:27→21:10)
[2022-12-24] MEDS: JUVEN PACKET PO SCH ×2 (08:28→21:10)
[2022-12-24] MEDS: MUPIROCIN 2% OINT 22GM TUBE TOP SCH ×2 (08:28→21:00)
[2022-12-24] MEDS: FLUCONAZOLE 100 MG TAB PO SCH (08:28)
[2022-12-24] MEDS: THIAMINE 200 MG/2 ML INJ IVP SCH (08:28)
[2022-12-24] MEDS: AMIODARONE HCL 200 MG TAB PO SCH ×2 (08:28→21:09)
[2022-12-24] MEDS: lisinopriL 20 MG TAB PO SCH (08:28)
[2022-12-24] MEDS: COLLAGENASE 30 GM OINTMENT TOP SCH (08:29)
[2022-12-24] MEDS ORDERED: ENOXAPARIN 40 MG/0.4 ML SQ SCH (09:00)
[2022-12-24] MEDS: ACETAMINOPHEN 500 MG TAB PO PRN (12:54)
[2022-12-24] MEDS: VANCOMYCIN 1.5 GM in NA CHLORIDE 0.9% 500 ML IVPB SCH (12:54)
--- NOTE | 2022-12-24 15:41 | P.PN ---
Subjective Date of Service: 12/24/22 Chief Complaint: Altered mental status Subjective: No new changes (bedridden) Physical Examination - Vital Signs Temperature: 99.8 F Blood Pressure: 150/56 Pulse: 96 Respirations: 19 Pulse Ox (%): 97 - Physical Exam General: Other (chronically ill appearing) HEENT: Atraumatic, Normocephalic Neck: Supple, JVD not distended Respiratory: Other (symmetric chest expansion) Cardiovascular: No rubs, No murmurs Gastrointestinal: Soft and benign, No guarding Musculoskeletal: No clubbing Integumentary: No warmth Neurological: Dementia Urinary: Other (no bladder distention) External genitalia: Deferred Rectal: Deferred - Studies Microbiology Data (last 24 hrs): 12/18/22 10:10 Blood - Blood Aerobic Blood Culture - Final Gram Neg Vincent Proteus Mirabilis 12/18/22 10:10 Blood - Blood Anaerobic Blood Culture - Final Proteus Mirabilis 12/18/22 10:10 Blood - Blood Gram Stain - Final 12/18/22 10:52 Blood - Blood Aerobic Blood Culture - Final Proteus Mirabilis 12/18/22 10:52 Blood - Blood Blood Culture Gram Stain - Final 12/18/22 10:52 Blood - Blood Anaerobic Blood Culture - Final Proteus Mirabilis 12/18/22 10:52 Blood - Blood Gram Stain - Final Assessment And Plan - Plan 1. Hypernatremia. Resolved. Cont NG tube hydration. goals of CARE discussion with family ongoing. If they decide not to transition to hospice, patient will need gastrostomy tube placement to maintain adequate hydration and normonatremia. 2. Hypokalemia, resolved. KCl repletion prn. 3. Hypophosphatemia. Phos repletion prn. 4. Protein calorie malnutriton. Continue tube feeding. 5. Coronary artery disease with history of congestive heart failure. Per other services. [place] po/tube hydration. 6. Hypoglycemia 2/2 poor nutrition. On dextrose IV gtt. Give thiamine 500 g IV every 8 hours 3 doses to prevent neurologic/GI beriberi. 7. Bacteremia, UTI, sacral decubitus ulcer. +indwelling razo. Abx per other services. 8. Advanced dementia. Supportive care. 9. ABDIRASHID 2/2 prerenal state. Resolved. Tube hydration as above. 10. Dispo. Hospice eligible. Recommend transition to hospice. Goals of care discussion with family ongoing.
[2022-12-25] MEDS: D5W 1,000 ML IV SCH ×2 (00:11→18:01)
[2022-12-25] MEDS: MORPHINE 2 MG/ML SYR IV PRN ×3 (00:50→15:37)
--- NOTE | 2022-12-25 06:23 | P.PN ---
Date of Service: 12/25/22 Subjective: no acute events overnight. patient remains not every interactive spoke to daughter at bedside this morning ROS: A complete review of systems was unable to be performed Physical Exam: Gen: NAD, somnolent, opens eyes to verbal stimuli HEENT: normal conjunctiva, sclera anicteric CV: regular rate & rhythm, trace-1+ b/l pedal edema Pulm: non-labored respirations, diminished bilaterally Abd: soft, non-distended Skin: sacral ulcer with dressing in place, b/l heel with dark discoloration vitals reviewed razo in place Problem List Septic shock secondary to UTI, necrotizing fasciitis UTI secondary to indwelling razo catheter sacral decubitus ulcer, stage IV; complicated by necrotizing fasciitis Metabolic encephalopathy Anemia, of chronic disease, recent surgery ABDIRASHID Hypernatremia Chronic Compensated Diastolic Congestive Heart Failure with Preserved Ejection Fraction Moderate Pulmonary Hypertension Coronary Artery Disease Moderate Tricuspid Regurgitation Hypertension Advanced Dementia UTI, bacteremia, with necrotizing fasciitis of sacral pressure wound s/p I&D, with bone exposed patient with advanced dementia, and recent hip fracture with worsening pressure sores / complications since fall discussed prognosis with daughter had family discussion, and proceeding with hospice would be best in line with what the patient would want hospice consult DNR family to further discuss, but for now, daughter wants continued antibiotics/feeds Code: DNR Dispo: continue current care hospice consult
[2022-12-25 07:11] LABS: Albumin 1.5 g/dL (3.4-5.0); Phosphorus 2.5 mg/dL (2.5-4.9); Potassium 3.9 mmol/L (3.5-5.1)
[2022-12-25] MEDS ORDERED: POTASSIUM PHOS IN 0.9 % NACL 15 MMOL/250 ML BAG IV ONE (08:00)
[2022-12-25] MEDS: CEFEPIME 2 GM in NA CHLORIDE 0.9% 100 ML IV SCH ×2 (09:00→20:28)
[2022-12-25] MEDS: COLLAGENASE 30 GM OINTMENT TOP SCH (09:00)
[2022-12-25] MEDS: JUVEN PACKET PO SCH ×2 (09:00→20:30)
[2022-12-25] MEDS: MUPIROCIN 2% OINT 22GM TUBE TOP SCH ×2 (09:00→20:30)
[2022-12-25] MEDS: FLUCONAZOLE 100 MG TAB PO SCH (09:42)
[2022-12-25] MEDS: AMIODARONE HCL 200 MG TAB PO SCH ×2 (09:42→20:29)
[2022-12-25] MEDS: lisinopriL 20 MG TAB PO SCH (09:42)
[2022-12-25] MEDS: ENOXAPARIN 40 MG/0.4 ML SQ SCH (09:42)
[2022-12-25] MEDS: ACETAMINOPHEN 500 MG TAB PO PRN (11:12)
[2022-12-25] MEDS: VANCOMYCIN 1.5 GM in NA CHLORIDE 0.9% 500 ML IVPB SCH (13:59)
--- NOTE | 2022-12-25 15:43 | P.PN ---
Subjective Date of Service: 12/25/22 Chief Complaint: Altered mental status Subjective: No new changes, Other (remains bedridden) Physical Examination - Vital Signs Temperature: 99.9 F Blood Pressure: 120/40 Pulse: 90 Respirations: 24 Pulse Ox (%): 98 - Physical Exam General: Other (chronically ill-appearing) HEENT: Atraumatic, Normocephalic Neck: Supple Respiratory: Other (symmetric chest expansion) Cardiovascular: No rubs, No murmurs Gastrointestinal: Soft and benign, No guarding Musculoskeletal: No clubbing Integumentary: No warmth Neurological: Normal tone Urinary: Other (no bladder distention) External genitalia: Deferred Rectal: Deferred Assessment And Plan - Plan 1. Hypernatremia. Resolved. Cont NG tube hydration. goals of care discussion with family ongoing. If they decide not to transition to hospice, patient will need gastrostomy tube placement to maintain adequate hydration and normonatremia. 2. Hypokalemia, resolved. KCl repletion prn. 3. Hypophosphatemia. Phos repletion prn. 4. Protein calorie malnutriton. Continue tube feeding. 5. Coronary artery disease with history of congestive heart failure. Per other services. [place] po/tube hydration. 6. Hypoglycemia 2/2 poor nutrition. On dextrose IV gtt. Give thiamine 500 g IV every 8 hours 3 doses to prevent neurologic/GI beriberi. 7. Bacteremia, UTI, sacral decubitus ulcer. +indwelling razo. Abx per other services. 8. Advanced dementia. Supportive care. 9. ABDIRASHID 2/2 prerenal state. Resolved. Tube hydration as above. 10. Dispo. Hospice eligible. Awaiting family to speak to hospice.
[2022-12-25] MEDS ORDERED: MORPHINE 2 MG/ML SYR IV PRN (17:52)
[2022-12-25] MEDS: VITAL AF 1,000 ML BOT RTH SCH (18:01)
[2022-12-26 05:33] LABS: Albumin 1.4 g/dL (3.4-5.0); Potassium 3.6 mmol/L (3.5-5.1)
[2022-12-26] MEDS: ENOXAPARIN 40 MG/0.4 ML SQ SCH (08:47)
[2022-12-26] MEDS: COLLAGENASE 30 GM OINTMENT TOP SCH (08:47)
[2022-12-26] MEDS: MUPIROCIN 2% OINT 22GM TUBE TOP SCH ×2 (08:52→20:27)
[2022-12-26] MEDS: lisinopriL 20 MG TAB PO SCH (08:53)
[2022-12-26] MEDS: AMIODARONE HCL 200 MG TAB PO SCH ×2 (08:53→20:23)
[2022-12-26] MEDS: FLUCONAZOLE 100 MG TAB PO SCH (08:53)
[2022-12-26] MEDS: JUVEN PACKET PO SCH ×2 (08:54→20:23)
[2022-12-26] MEDS: CEFEPIME 2 GM in NA CHLORIDE 0.9% 100 ML IV SCH ×2 (08:54→20:23)
--- NOTE | 2022-12-26 09:59 | P.PN ---
Subjective Date of Service: 12/26/22 Chief Complaint: Altered mental status Patient lying in bed alert, but not following command. Look in good spirits. No signs of cardiopulmonary distress Physical Examination - Vital Signs Temperature: 99.9 F Blood Pressure: 139/50 Pulse: 92 Respirations: 24 Pulse Ox (%): 98 - Physical Exam General: Demented Respiratory: Clear to auscultation bilaterally Cardiovascular: Normal S1 S2, Edema (b/l non-pitting edema in all extremities) Gastrointestinal: Hypoactive, Other (DHT in place) Musculoskeletal: Swelling (b/l non-pitting edema in all extremities), Erythema (Sacral stage IV and b/l heels DTI) Integumentary: Skin breakdown, Skin lesion, Tenderness/swelling (b/l non-pitting edema in all extremities), Pressure ulcer (Sacral stage IV and b/l heels DTI) Neurological: Dementia Urinary: Arrieta catheter (urine yellow and clear) - Studies active medications Acetaminophen (Acetaminophen 500 Mg Tab) 500 mg PO Q4HP PRN PRN Reason: TEMP > 100' F Last Admin: 12/25/22 11:12 Dose: 500 mg Amiodarone HCl (Amiodarone Hcl 200 Mg Tab) 200 mg PO BID [facility] Last Admin: 12/26/22 08:53 Dose: 200 mg Collagenase (Collagenase 30 Gm Ointment) 1 appl TOP DAILY [facility] Last Admin: 12/26/22 08:47 Dose: 1 appl Enoxaparin Sodium (Enoxaparin 40 Mg/0.4 Ml) 40 mg SQ DAILY [facility] Last Admin: 12/26/22 08:47 Dose: 40 mg Fluconazole (Fluconazole 100 Mg Tab) 100 mg PO DAILY [facility]; Protocol Stop: 12/29/22 09:01 Last Admin: 12/26/22 08:53 Dose: 100 mg Norepinephrine/Dextrose (Levophed 4 Mg/250 Ml-D5w) 4 mg in 250 mls @ 28.066 mls/hr IV TITR [facility]; Protocol Last Titration: 12/20/22 21:15 Dose: 0 mcg/kg/min, 0 mls/hr Dextrose/Water (Dextrose In Water (1-Liter)) 1,000 mls @ 50 mls/hr IV .Q20H [facility] Last Admin: 12/25/22 18:01 Dose: 1,000 mls Vancomycin HCl 1.5 gm/ Sodium (Chloride) 500 mls @ 250 mls/hr IVPB Q24H [facility] Last Admin: 12/25/22 13:59 Dose: 500 mls Cefepime HCl 2 gm/ Sodium (Chloride) 100 mls @ 200 mls/hr IV Q12HR [facility]; Protocol Last Admin: 12/26/22 08:54 Dose: 100 mls L-Arginine/L-Glutamine/HMB ([place]endez Packet) 1 pkt PO BID [facility] Last Admin: 12/26/22 08:54 Dose: 1 pkt Lisinopril (Lisinopril 20 Mg Tab) 20 mg PO DAILY [facility] Last Admin: 12/26/22 08:53 Dose: 20 mg Morphine Sulfate (Morphine 2 Mg/Ml Syr) 2 mg IV Q4H PRN PRN Reason: Pain scale 5-7 (Moderate) Mupirocin (Mupirocin 2% Oint 22gm Tube) 1 appl TOP BID [facility] Last Admin: 12/26/22 08:52 Dose: 1 jenaro Nutritional Formula (Vital Af 1,000 Ml Bot) 0 ml RTH CONT [facility] Last Admin: 12/25/22 18:01 Dose: 1,000 ml Ondansetron HCl (Ondansetron 4 Mg/2 Ml Vial) 4 mg IV Q6HP PRN PRN Reason: NAUSEA / VOMITING Sodium Chloride (Flush Normal Saline 10 Ml) 10 ml IV BID [facility] Last Admin: 12/26/22 08:54 Dose: 10 ml Microbiology Data (last 24 hrs): Microbiology 12/18/22 10:10 Blood - Blood Aerobic Blood Culture - Final Gram Neg Vincent Proteus Mirabilis 12/18/22 10:10 Blood - Blood Anaerobic Blood Culture - Final Proteus Mirabilis 12/18/22 10:10 Blood - Blood Gram Stain - Final 12/18/22 10:52 Blood - Blood Aerobic Blood Culture - Final Proteus Mirabilis 12/18/22 10:52 Blood - Blood Blood Culture Gram Stain - Final 12/18/22 10:52 Blood - Blood Anaerobic Blood Culture - Final Proteus Mirabilis 12/18/22 10:52 Blood - Blood Gram Stain - Final Assessment And Plan - Current Problems (Diagnosis) (1) Bacteremia Plan: Secondary to UTI vs Sacral pressure ulcer Cultures: 12/23 BC: Negative 12/18 BC: Gram Pos Cocci in pairs and chain and Gram Neg Vincent - Proteus mirabilis, susceptible to Meropenem and Cefepime 12/18 UC: GNR; Klebsiella pneumoniae, susceptible to Meropenem and Cefepime Antibiotics: Current on IV Cefepime (12/22- ) and Vancomycin (12/18- ) Recommendations: Continue IV Cefepime for total of 2 weeks when repeated blood culture is negative (2) UTI (urinary tract infection) due to urinary indwelling Arrieta catheter Plan: Cultures: 12/23 BC: Negative 12/18 BC: Gram Pos Cocci in pairs and chain and Gram Neg Vincent - Proteus mirabilis, susceptible to Meropenem and Cefepime 12/18 UC: GNR; Klebsiella pneumoniae, susceptible to Meropenem and Cefepime Antibiotics: Current on IV Cefepime (12/22- ) and Vancomycin (12/18- ) and Fluconazole(12/23- 12/29) Recommendations: Continue IV Cefepime for total of 2 weeks when repeated blood culture is negative (3) Sacral decubitus ulcer, stage IV Plan: Cultures: 12/19 Sacral Wound: WBC +; Gram Pos Cocci in Prs & Chs; Gram Neg Vincent: Proteus mirabilis and E. Coli both susceptible to Meropenem and Cefepime Antibiotics: Current on IV Cefepime (12/22- ) and Vancomycin (12/18- ) Recommendations: - Continue IV Vancomycin and Cefepime - The course of IV antibiotics should be for total of 6 weeks duration - Long-Term Acute Care facility should be taken into consideration for aggressive IV antibiotics, wound care management, and renal function monitoring 12/19: Dr. Sykes performed Wide excisional debridement of necrotizing soft tissue infection: 20cm x 15cm to sacral bone Stage IV ulcer with necrotic soft tissue infection; possible PEG and colostomy placement to assist in recovery (4) Leukocytosis Plan: UTI vs sacral stage IV pressure ulcer WBC: 12/19: 16.8 12/20: 14.1 2: 12.4 12/22: 11.7 12/23: 9 12/24: 8, Normal - Plan - Family meeting today for possible Hospice care - Bacteremia: UTI vs. Sacral decubitus: Need IV antibiotics for total of 6 weeks duration and consider LTAC placement for aggressive treatment - UTI (urinary tract infection) due to urinary indwelling Arrieta catheter: Continue on IV Cefepime and Vancomycin; Fluconazole added - Septic shock: UTI vs. sacral decubitus ulcer: Continue on IV Meropenem and Vancomycin - Sacral decubitus ulcer, stage IV: Dr. Sykes performed Wide excisional debridement of necrotizing soft tissue infection: 20cm x 15cm to sacral bone Stage IV ulcer with necrotic soft tissue infection on 12/19 - Unstageable DTI of heels - Severe protein calorie malnutrition - Anemia of chronic disease - Metabolic encephalopathy - Acute renal failure - Hypernatremia - CHF - CAD - Hypertension - Dementia - Left Hip surgery 2 weeks ago ID will closely monitor the patient with signs of infection with fever and WBC trends Case has been discussed with Dr. Alcantar, N
[2022-12-26] MEDS: VANCOMYCIN 1.5 GM in NA CHLORIDE 0.9% 500 ML IVPB SCH (13:50)
--- NOTE | 2022-12-26 15:59 | P.PN ---
Date of Service: 12/26/22 Subjective: no acute events overnight no significant change ROS: A complete review of systems was unable to be performed Physical Exam: Gen: NAD, somnolent, opens eyes to verbal stimuli HEENT: normal conjunctiva, sclera anicteric CV: regular rate & rhythm, trace-1+ b/l pedal edema Pulm: non-labored respirations, diminished bilaterally Skin: sacral ulcer with dressing in place, b/l heel with dark discoloration vitals reviewed razo in place Problem List Septic shock secondary to UTI, necrotizing fasciitis UTI secondary to indwelling razo catheter sacral decubitus ulcer, stage IV; complicated by necrotizing fasciitis Metabolic encephalopathy Anemia, of chronic disease, recent surgery ABDIRASHID Hypernatremia Chronic Compensated Diastolic Congestive Heart Failure with Preserved Ejection Fraction Moderate Pulmonary Hypertension Coronary Artery Disease Moderate Tricuspid Regurgitation Hypertension end-stage Dementia UTI, bacteremia, with necrotizing fasciitis of sacral pressure wound s/p I&D, with bone exposed patient with end-stage dementia, and recent hip fracture compliated by recent hip fracture, decubitus ulcers, severe protein calorie malnutrition, necrotizing fasciitis, osteomyelitis discussed prognosis with daughter had family discussion, and proceeding with hospice would be best in line with what the patient would want hospice consulted 12/25 DNR family to further discuss, but for now, daughter wants continued antibiotics/feeds family deciding on which hospice company and where Code: DNR Dispo: continue current care hospice consulted
[2022-12-26] MEDS: D5W 1,000 ML IV SCH (17:10)
--- NOTE | 2022-12-27 04:40 | PN ---
Date of Progress Note: 12/26/2022 Chief Complaint: Altered mental status. Subjective: The patient cannot provide review of systems. The patient remains in ICU. She was foun d to have hypernatremia. She was treated with NG tube, hydration. Sodium level has improved, hypern atremia resolved. The patient has multiple electrolytes resorbed but hypokalemia was treated with po tassium repletion. Hypophosphatemia as well was treated accordingly. The patient has severe protein -calorie malnutrition and she is on tube feeding. Physical Examination: Lungs: Diminished breath sounds at bases. Heart: S1, S2. Abdomen: Soft, benign. Extremities: No edema. Impression And Plan: 1.Hypernatremia. Continue to adjust free water with NG for hydration. 2.Hypokalemia, resolved. Potassium repletion is ordered as needed. 3.Hypophosphatemia. Monitor phosphorus level. 4.Coronary artery disease with history of congestive heart failure. Continue diuretic as needed. 5.Hypoglycemia secondary to malnutrition. Neurology consult is pending. The patient is o n high dose of thiamine. 6.Bacteremia urinary tract infection, sacral decubitus ulcer and indwelling Arrieta catheter. Antibio tics per other services. 7.Acute kidney injury secondary to prerenal state. Continue hydration. Monitor fluid balance. EB/MODL Voice ID: [id number] Report ID: [id number]
[2022-12-27 05:55] LABS: Albumin 1.5 g/dL (3.4-5.0); Bilirubin Total 0.3 mg/dL (0.2-1.0); Magnesium 1.8 mg/dL (1.6-2.4); Phosphorus 3.1 mg/dL (2.5-4.9); Potassium 3.7 mmol/L (3.5-5.1); Protein, Total 5.6 g/dL (6.4-8.2)
[2022-12-27] MEDS: lisinopriL 20 MG TAB PO SCH (08:51)
[2022-12-27] MEDS: CEFEPIME 2 GM in NA CHLORIDE 0.9% 100 ML IV SCH ×2 (08:51→20:17)
[2022-12-27] MEDS: ENOXAPARIN 40 MG/0.4 ML SQ SCH (08:51)
[2022-12-27] MEDS: FLUCONAZOLE 100 MG TAB PO SCH (08:51)
[2022-12-27] MEDS: JUVEN PACKET PO SCH ×2 (08:52→20:18)
[2022-12-27] MEDS: AMIODARONE HCL 200 MG TAB PO SCH ×2 (08:52→20:17)
[2022-12-27] MEDS: MUPIROCIN 2% OINT 22GM TUBE TOP SCH ×2 (09:05→20:17)
[2022-12-27] MEDS: COLLAGENASE 30 GM OINTMENT TOP SCH (09:05)
--- NOTE | 2022-12-27 10:55 | P.PN ---
Subjective Date of Service: 12/27/22 Chief Complaint: Altered mental status Patient lying in bed resting and not following command. No signs of cardiopulmonary distress Physical Examination - Vital Signs Temperature: 98.2 F Blood Pressure: 186/84 Pulse: 97 Respirations: 17 Pulse Ox (%): 98 - Physical Exam General: Demented Respiratory: Clear to auscultation bilaterally Cardiovascular: Normal S1 S2, Edema (b/l non-pitting edema in all extremities) Gastrointestinal: Normal bowel sounds, Other (DHT in place) Musculoskeletal: Swelling (b/l non-pitting edema in all extremities), Other (Sacral stage IV and b/l heels DTI)) Integumentary: Skin breakdown, Skin lesion, Tenderness/swelling, Pressure ulcer (Sacral stage IV and b/l heels DTI)) Neurological: Dementia Urinary: Arrieta catheter (urine yellow and clear) Assessment And Plan - Current Problems (Diagnosis) (1) Bacteremia Plan: Secondary to UTI vs Sacral pressure ulcer Cultures: 12/23 BC: Negative 12/18 BC: Gram Pos Cocci in pairs and chain and Gram Neg Vincent - Proteus mirabilis, susceptible to Meropenem and Cefepime 12/18 UC: GNR; Klebsiella pneumoniae, susceptible to Meropenem and Cefepime Antibiotics: Current on IV Cefepime (12/22- ) and Vancomycin (12/18- ) Recommendations: Continue IV Cefepime for total of 2 weeks when repeated blood culture is negative (2) UTI (urinary tract infection) due to urinary indwelling Arrieta catheter Plan: Cultures: 12/23 BC: Negative 12/18 BC: Gram Pos Cocci in pairs and chain and Gram Neg Vincent - Proteus mirabilis, susceptible to Meropenem and Cefepime 12/18 UC: GNR; Klebsiella pneumoniae, susceptible to Meropenem and Cefepime Antibiotics: Current on IV Cefepime (12/22- ) and Vancomycin (12/18- ) and Fluconazole(12/23- 12/29) Recommendations: Continue IV Cefepime for total of 2 weeks when repeated blood culture is negative (3) Sacral decubitus ulcer, stage IV Plan: Cultures: 12/19 Sacral Wound: WBC +; Gram Pos Cocci in Prs & Chs; Gram Neg Vincent: Proteus mirabilis and E. Coli both susceptible to Meropenem and Cefepime Antibiotics: Current on IV Cefepime (12/22- ) and Vancomycin (12/18- ) Recommendations: - Continue IV Vancomycin and Cefepime - The course of IV antibiotics should be for total of 6 weeks duration - Long-Term Acute Care facility should be taken into consideration for aggressive IV antibiotics, wound care management, and renal function monitoring 12/19: Dr. Sykes performed Wide excisional debridement of necrotizing soft tissue infection: 20cm x 15cm to sacral bone Stage IV ulcer with necrotic soft tissue infection; possible PEG and colostomy placement to assist in recovery (4) Leukocytosis Plan: UTI vs sacral stage IV pressure ulcer WBC: 12/19: 16.8 12/20: 14.1 12/21: 12.4 12/22: 11.7 12/23: 9 12/24: 8, Normal - Plan - Pending for Hospice decision by family members - Bacteremia: UTI vs. Sacral decubitus: Need IV antibiotics for total of 6 weeks duration and consider LTAC placement for aggressive treatment - UTI (urinary tract infection) due to urinary indwelling Arrieta catheter: Continue on IV Cefepime and Vancomycin; Fluconazole added - Septic shock: UTI vs. sacral decubitus ulcer: Continue on IV Meropenem and Vancomycin - Sacral decubitus ulcer, stage IV: Dr. Sykes performed Wide excisional debridement of necrotizing soft tissue infection: 20cm x 15cm to sacral bone Stage IV ulcer with necrotic soft tissue infection on 12/19 - Unstageable DTI of heels - Severe protein calorie malnutrition - Anemia of chronic disease - Metabolic encephalopathy - Acute renal failure - Hypernatremia - CHF - CAD - Hypertension - Dementia - Left Hip surgery 2 weeks ago ID will closely monitor the patient with signs of infection with fever and WBC trends Case has been discussed with Dr. Alcantar, N
[2022-12-27] MEDS: D5W 1,000 ML IV SCH (15:03)
[2022-12-27] MEDS: VANCOMYCIN 1.5 GM in NA CHLORIDE 0.9% 500 ML IVPB SCH (15:03)
--- NOTE | 2022-12-27 15:31 | P.PN ---
Subjective Date of Service: 12/27/22 Chief Complaint: Altered mental status Subjective No overnight events plan for comfort care cont medical treatment Physical exam General: lethargic HEENT: Atraumatic, Normocephalic Neck: Supple, no elevated JVD Respiratory: CTAB Cardiovascular: No rubs, No murmurs Gastrointestinal: Soft and benign, Non-distended Ext: trace edema A/P 1. Hypernatremia. Resolved. Cont NG tube hydration. 2. Hypokalemia, resolved. KCl repletion prn. 3. Hypophosphatemia. Phos repletion prn. 4. Protein calorie malnutriton. Continue tube feeding. 5. Coronary artery disease with history of congestive heart failure. Per other services. [place] po/tube hydration. 6. Hypoglycemia 2/2 poor nutrition. On dextrose IV gtt. Give thiamine 500 g IV every 8 hours 3 doses to prevent neurologic/GI beriberi. 7. Bacteremia, UTI, sacral decubitus ulcer. +indwelling razo. Abx per other services. 8. Advanced dementia. Supportive care. 9. ABDIRASHID 2/2 prerenal state. Resolved. Tube hydration as above. Plan to discharge to Hospice Physical Examination - Vital Signs Temperature: 98.9 F Blood Pressure: 156/60 Pulse: 99 Respirations: 18 Pulse Ox (%): 99
--- NOTE | 2022-12-27 19:59 | P.PN ---
Subjective Date of Service: 12/27/22 Chief Complaint: Altered mental status Patient appear lethargic. She is not able to give any subjective complaint. Physical Examination - Vital Signs Temperature: 98.8 F Blood Pressure: 153/58 Pulse: 96 Respirations: 18 Pulse Ox (%): 96 Assessment And Plan - Current Problems (Diagnosis) (1) Septic shock Current Visit: Yes Status: Acute (2) Sacral decubitus ulcer, stage IV Current Visit: Yes Status: Acute (3) UTI (urinary tract infection) due to urinary indwelling Razo catheter Current Visit: Yes Status: Acute (4) Metabolic encephalopathy Current Visit: Yes Status: Acute (5) Anemia Current Visit: Yes Status: Acute (6) Acute renal failure Current Visit: Yes Status: Acute (7) Hypernatremia Current Visit: Yes Status: Acute - Plan Physical Exam General: In no apparent distress, Somnolent, nonverbal. HEENT: PERRLA, Mucous membr. moist/pink, EOMI, Sclerae nonicteric Neck: Supple, JVD not distended Respiratory: Clear to auscultation bilaterally, Normal air movement Cardiovascular: Regular rate/rhythm, Normal S1 S2, No murmurs Gastrointestinal: Normal bowel sounds, Soft and benign, Non-distended Musculoskeletal: No swelling, No tenderness Integumentary: No cyanosis, Other (Stage IV sacral decubitus ulcer) Neurological: Somnolent, withdraws right extremities to pain, no response on the left, does not obey commands. Patient blood pressure responded well to initial IV fluid resuscitation. She is currently normotensive and has not required vasopressor. Continue antibiotics-IV meropenem and vancomycin. Hypernatremia and ABDIRASHID significantly improved. Continue aggressive IV D5 normal saline. Monitor renal function and urine output. Dobhoff for feeding Status post 1 unit PRBC for anemia. Hold antihypertensives. Urine culture is growing gram-negative rods. Blood cultures: No growth to date Patient is scheduled for sacral decubitus ulcer debridement today. Seen by cardiology Dr. Mendoza for preop clearance. Dr. Mendoza recommend transi tioning from amiodarone drip to oral amiodarone. Hold heparin drip for surgery Infectious disease consulted. Razo catheter changed in the ED. Prognosis guarded. DVT prophylaxis: Patient is on heparin drip. Physical Exam: Gen: NAD, somnolent, opens eyes to verbal stimuli HEENT: normal conjunctiva, sclera anicteric CV: regular rate & rhythm, trace-1+ b/l pedal edema Pulm: non-labored respirations, diminished bilaterally Skin: sacral ulcer with dressing in place, b/l heel with dark discoloration vitals reviewed razo in place Problem List Septic shock secondary to UTI, necrotizing fasciitis UTI secondary to indwelling razo catheter sacral decubitus ulcer, stage IV; complicated by necrotizing fasciitis Metabolic encephalopathy Anemia, of chronic disease, recent surgery ABDIRASHID Hypernatremia Chronic Compensated Diastolic Congestive Heart Failure with Preserved Ejection Fraction Moderate Pulmonary Hypertension Coronary Artery Disease Moderate Tricuspid Regurgitation Hypertension end-stage Dementia UTI, bacteremia, with necrotizing fasciitis of sacral pressure wound s/p I&D, with bone exposed patient with end-stage dementia, and recent hip fracture severe protein calorie malnutrition and osteomyelitis. Poor prognosis. Family have opted for hospice. DNR Transfer to [facility] pending hospice evaluation
[2022-12-27 21:45] VITALS: O2SAT 96
[2022-12-28 09:10] VITALS: BP 169/70; TEMP 97.7
--- NOTE | 2022-12-28 10:46 | P.DS ---
Admission Date: 12/18/22 Discharge Date: 12/28/22 Disposition: TRANSFER TO ALF Discharge Condition: FAIR Reason for Admission: Altered mental status - Problems (1) Septic shock Current Visit: Yes Status: Acute (2) Sacral decubitus ulcer, stage IV Current Visit: Yes Status: Acute (3) UTI (urinary tract infection) due to urinary indwelling Razo catheter Current Visit: Yes Status: Acute (4) Metabolic encephalopathy Current Visit: Yes Status: Acute (5) Anemia Current Visit: Yes Status: Acute (6) Acute renal failure Current Visit: Yes Status: Acute (7) Hypernatremia Current Visit: Yes Status: Acute Brief History of Present Illness: 82-year-old -[place] woman was transferred from detention to the emergency department because of generalized weakness, altered mental status, and lethargy. Per report patient has not been eating well for 3 weeks since her hip surgery. In the ED patient noted to have sacral decubitus ulcer with necrotic tissue, urine is concentrated. Patient with septic and hypotensive. Sepsis protocol initiated and patient aggressively resuscitated with IV fluid, started on antibiotics. Patient also noted to be anemic with hemoglobin of 8 and started on blood transfusion. She has been seen by surgery-Dr. Sykes who recommended surgical debridement of the sacral decubitus ulcer as soon as possible. Patient has advanced dementia and not able to give subjective complaint. She is hospitalized for further management. Hospital Course: Septic shock secondary to UTI, necrotizing fasciitis UTI secondary to indwelling razo catheter sacral decubitus ulcer, stage IV; complicated by necrotizing fasciitis Metabolic encephalopathy Anemia, of chronic disease, recent surgery ABDIRASHID Hypernatremia Chronic Compensated Diastolic Congestive Heart Failure with Preserved Ejection Fraction Moderate Pulmonary Hypertension Coronary Artery Disease Moderate Tricuspid Regurgitation Hypertension end-stage Dementia Patient admitted to the ICU, aggressively hydrated with IV fluid and started on aggressive antibiotic therapy for septic shock. Patient was seen and evaluated by general surgery who performed debridement of sacral decubitus ulcer. Multiple blood culture bottles grew Proteus, urine culture grew Klebsiella, wound culture grew multiple gram-negative organisms. Patient was diagnosed with necrotizing fasciitis. Other diagnoses include severe protein calorie malnutrition and osteomyelitis from exposed bone. Patient with end-stage dementia, recent hip fracture and poor functional status, and prior poor oral intake. Her prognosis is considered poor. Family opted for hospice. Patient has been accepted back to [place] for hospice. She is DNR. Vital Signs/Physical Exam: Temp Pulse Resp BP Pulse Ox 97.7 F 85 20 169/70 H 97 12/28/22 08:00 12/28/22 08:00 12/28/22 08:00 12/28/22 08:00 12/28/22 08:00 General: Other (Awake, nonverbal) HEENT: Mucous membr. moist/pink Neck: JVD not distended Respiratory: Clear to auscultation bilaterally, Normal air movement Cardiovascular: Regular rate/rhythm, Normal S1 S2, Edema (Lower extremities) Gastrointestinal: Soft and benign, Non-distended Musculoskeletal: No contractures Laboratory Data at Discharge: WBC 8.00 K/uL (4.3-10.9) 12/24/22 05:40 Hgb 8.0 g/dL (12.0-15.0) L 12/24/22 05:40 Hct 24.3 % (36.0-45.0) L 12/24/22 05:40 Plt Count 299 K/uL (152-406) 12/24/22 05:40 PT 15.8 SECONDS (9.5-12.5) H 12/19/22 04:43 INR 1.44 12/19/22 04:43 APTT Cancelled 12/19/22 11:50 Sodium 138 mmol/L (136-145) 12/27/22 05:30 Potassium 3.7 mmol/L (3.5-5.1) 12/27/22 05:30 BUN 14 mg/dL (7-18) 12/27/22 05:30 Creatinine 0.48 mg/dL (0.55-1.02) L 12/27/22 05:30 Glucose 113 mg/dL (74-106) H 12/27/22 05:30 Uric Acid 4.2 mg/dL (2.6-6.0) 12/22/22 04:53 Phosphorus 3.1 mg/dL (2.5-4.9) 12/27/22 05:30 Magnesium 1.8 mg/dL (1.6-2.4) 12/27/22 05:30 Total Bilirubin 0.3 mg/dL (0.2-1.0) 12/27/22 05:30 AST 61 U/L (15-37) H 12/27/22 05:30 ALT 52 U/L (13-56) 12/27/22 05:30 Alkaline Phosphatase 99 U/L (45-117) 12/27/22 05:30 Home Medications: Amlodipine [Norvasc*] 10 mg PO DAILY 11/22/22 Ascorbic Acid [Vitamin C] 1,000 mg PO DAILY 11/22/22 Aspirin Chewable [Aspirin Chewable*] 81 mg PO DAILY 11/22/22 Carvedilol [Coreg] 12.5 mg PO Q12H 11/22/22 Citalopram [Celexa*] 10 mg PO BEDTIME 11/22/22 Clopidogrel Bisulfate [Plavix*] 75 mg PO DAILY 11/22/22 Cyanocobalamin (Vitamin B-12) [Vitamin B-12] 1,000 mcg PO DAILY 11/22/22 Docusate [Colace Cap*] 100 mg PO DAILY 11/22/22 Donepezil HCl [Aricept] 10 mg PO BEDTIME 11/22/22 Memantine HCl [Namenda] 10 mg PO BID 11/22/22 Multivitamin with Minerals [One Daily Plus Minerals] 1 each PO DAILY 11/22/22 lisinopriL [Prinivil*] 20 mg PO BID 11/22/22 Bisacodyl [Dulcolax*] 10 mg NC DAILY PRN 12/18/22 Codeine/APAP [Tylenol #3*] 1 tab PO Q6H PRN 12/18/22 Collagenase [Santyl Ointment*] 1 appl TOP DAILY 12/18/22 Zinc Gluconate [Zinc] 50 mg PO DAILY 12/18/22 Amiodarone HCl [Cordarone*] 200 mg PO BID tab 12/28/22 Mendez [Mendez*] 1 pkt PO BID 12/28/22 Mupirocin Oint [Bactroban 2% Ointment*] 1 appl TOP BID tube 12/28/22 Activity: Fall precautions Time spent managing pt's care (in minutes): 37
[2022-12-28] MEDS: CEFEPIME 2 GM in NA CHLORIDE 0.9% 100 ML IV SCH (10:55)
--- NOTE | 2022-12-28 12:03 | P.PN ---
Subjective Date of Service: 12/28/22 Chief Complaint: Altered mental status Patient lying in bed resting and not following command. No signs of cardiopulmonary distress Physical Examination - Vital Signs Temperature: 97.7 F Blood Pressure: 169/70 Pulse: 85 Respirations: 20 Pulse Ox (%): 97 - Physical Exam General: Demented Respiratory: Clear to auscultation bilaterally Cardiovascular: Normal S1 S2, Edema (b/l non-pitting edema in all extremities) Gastrointestinal: Normal bowel sounds, Other (DHT in place) Musculoskeletal: Swelling (b/l non-pitting edema in all extremities), Other (Sacral stage IV and b/l heels DTI) Integumentary: Tenderness/swelling (b/l non-pitting edema in all extremities), Pressure ulcer (Sacral stage IV and b/l heels DTI) Neurological: Dementia Urinary: Arrieta catheter (urine yellow and clear) - Studies active medications Acetaminophen (Acetaminophen 500 Mg Tab) 500 mg PO Q4HP PRN PRN Reason: TEMP > 100' F Last Admin: 12/25/22 11:12 Dose: 500 mg Amiodarone HCl (Amiodarone Hcl 200 Mg Tab) 200 mg PO BID [facility] Last Admin: 12/27/22 20:17 Dose: 200 mg Collagenase (Collagenase 30 Gm Ointment) 1 appl TOP DAILY [facility] Last Admin: 12/27/22 09:05 Dose: 1 appl Enoxaparin Sodium (Enoxaparin 40 Mg/0.4 Ml) 40 mg SQ DAILY [facility] Last Admin: 12/27/22 08:51 Dose: 40 mg Fluconazole (Fluconazole 100 Mg Tab) 100 mg PO DAILY [facility]; Protocol Stop: 12/29/22 09:01 Last Admin: 12/27/22 08:51 Dose: 100 mg Dextrose/Water (Dextrose In Water (1-Liter)) 1,000 mls @ 50 mls/hr IV .Q20H [facility] Last Admin: 12/27/22 15:03 Dose: 1,000 mls Vancomycin HCl 1.5 gm/ Sodium (Chloride) 500 mls @ 250 mls/hr IVPB Q24H [facility] Last Admin: 12/27/22 15:03 Dose: 500 mls Cefepime HCl 2 gm/ Sodium (Chloride) 100 mls @ 200 mls/hr IV Q12HR [facility]; Protocol Last Admin: 12/28/22 10:55 Dose: 100 mls L-Arginine/L-Glutamine/HMB (Mendez Packet) 1 pkt PO BID [facility] Last Admin: 12/27/22 20:18 Dose: 1 pkt Lisinopril (Lisinopril 20 Mg Tab) 20 mg PO DAILY [facility] Last Admin: 12/27/22 08:51 Dose: 20 mg Morphine Sulfate (Morphine 2 Mg/Ml Syr) 2 mg IV Q4H PRN PRN Reason: Pain scale 5-7 (Moderate) Mupirocin (Mupirocin 2% Oint 22gm Tube) 1 appl TOP BID [facility] Last Admin: 12/27/22 20:17 Dose: 1 jenaro Nutritional Formula (Vital Af 1,000 Ml Bot) 0 ml RTH CONT [facility] Last Admin: 12/25/22 18:01 Dose: 1,000 ml Ondansetron HCl (Ondansetron 4 Mg/2 Ml Vial) 4 mg IV Q6HP PRN PRN Reason: NAUSEA / VOMITING Sodium Chloride (Flush Normal Saline 10 Ml) 10 ml IV BID [facility] Last Admin: 12/28/22 09:00 Dose: Not Given Microbiology Data (last 24 hrs): Microbiology 12/18/22 10:10 Blood - Blood Aerobic Blood Culture - Final Gram Neg Vincent Proteus Mirabilis 12/18/22 10:10 Blood - Blood Anaerobic Blood Culture - Final Proteus Mirabilis 12/18/22 10:10 Blood - Blood Gram Stain - Final 12/18/22 10:52 Blood - Blood Aerobic Blood Culture - Final Proteus Mirabilis 12/18/22 10:52 Blood - Blood Blood Culture Gram Stain - Final 12/18/22 10:52 Blood - Blood Anaerobic Blood Culture - Final Proteus Mirabilis 12/18/22 10:52 Blood - Blood Gram Stain - Final Assessment And Plan - Current Problems (Diagnosis) (1) Bacteremia Plan: Secondary to UTI vs Sacral pressure ulcer Cultures: 12/23 BC: Negative 12/18 BC: Gram Pos Cocci in pairs and chain and Gram Neg Vincent - Proteus mirabilis, susceptible to Meropenem and Cefepime 12/18 UC: GNR; Klebsiella pneumoniae, susceptible to Meropenem and Cefepime Antibiotics: Current on IV Cefepime (12/22- ) and Vancomycin (12/18- ) Recommendations: Continue IV Cefepime for total of 2 weeks when repeated blood culture is negative (2) UTI (urinary tract infection) due to urinary indwelling Arrieta catheter Plan: Cultures: 12/23 BC: Negative 12/18 BC: Gram Pos Cocci in pairs and chain and Gram Neg Vincent - Proteus mirabilis, susceptible to Meropenem and Cefepime 12/18 UC: GNR; Klebsiella pneumoniae, susceptible to Meropenem and Cefepime Antibiotics: Current on IV Cefepime (12/22- ) and Vancomycin (12/18- ) and Fluconazole(12/23- 12/29) Recommendations: Continue IV Cefepime for total of 2 weeks when repeated blood culture is negative (3) Sacral decubitus ulcer, stage IV Plan: Cultures: 12/19 Sacral Wound: WBC +; Gram Pos Cocci in Prs & Chs; Gram Neg Vincent: Proteus mirabilis and E. Coli both susceptible to Meropenem and Cefepime Antibiotics: Current on IV Cefepime (12/22- ) and Vancomycin (12/18- ) Recommendations: - Continue IV Vancomycin and Cefepime - The course of IV antibiotics should be for total of 6 weeks duration - Long-Term Acute Care facility should be taken into consideration for aggressive IV antibiotics, wound care management, and renal function monitoring 12/19: Dr. Sykes performed Wide excisional debridement of necrotizing soft tissue infection: 20cm x 15cm to sacral bone Stage IV ulcer with necrotic soft tissue infection; possible PEG and colostomy placement to assist in recovery (4) Leukocytosis Plan: UTI vs sacral stage IV pressure ulcer WBC: 12/19: 16.8 12/20: 14.1 12/21: 12.4 12/22: 11.7 12/23: 9 12/24: 8, Normal - Plan - Will be transferred to Hospice care - Bacteremia: UTI vs. Sacral decubitus: Need IV antibiotics for total of 6 weeks duration and consider LTAC placement for aggressive treatment - UTI (urinary tract infection) due to urinary indwelling Arrieta catheter: Continue on IV Cefepime and Vancomycin; Fluconazole added - Septic shock: UTI vs. sacral decubitus ulcer: Continue on IV Meropenem and Vancomycin - Sacral decubitus ulcer, stage IV: Dr. Sykes performed Wide excisional debridement of necrotizing soft tissue infection: 20cm x 15cm to sacral bone Stage IV ulcer with necrotic soft tissue infection on 12/19 - Unstageable DTI of heels - Severe protein calorie malnutrition - Anemia of chronic disease - Metabolic encephalopathy - Acute renal failure - Hypernatremia - CHF - CAD - Hypertension - Dementia - Left Hip surgery 2 weeks ago ID will closely monitor the patient with signs of infection with fever and WBC trends Case has been discussed with Dr. Alcantar N
--- NOTE | 2022-12-28 17:14 | PN ---
Date of Progress Note: 12/28/2022 Subjective: The patient was admitted with hypernatremia, hypokalemia, and altered mental status. Th e patient started on aggressive hydration with free water. Sodium started to being normalized. Physical Examination: Vital Signs: Blood pressure 169/70, pulse of 85. Chest: Clear to auscultation. Heart: S1, S2. Systolic murmur. Abdomen: Soft, nontender. Extremity: Trace edema. Neuro: The patient is sleepy. The patient has NG tube. Laboratory Data: Hemoglobin 8. Sodium 138, potassium 3.7, bicarb 32, BUN 14, creatinine 0.4, calciu m 7.9. Current Medications: The patient on include fluconazole, cefepime, vancomycin, lisinopril 20 daily, amiodarone, Jevity, and D5. Assessment And Plan: 1.Acute kidney injury secondary to prerenal, recovered. 2.Hypernatremia secondary to depletional. Continue current free water. 3.Hypophosphatemia secondary to malnourish. We will continue supplement. The patient possibly tommy g to go with hospice. We will sign off. Please call us if case changed. MILLI/JAVAN Voice ID: [id number] Report ID: [id number]
--- NOTE | 2023-01-01 14:49 | CON ---
Date of Consultation: 12/18/2022 Brief History Of Present Illness: The patient is an 82-year-old woman, who was guthrie sferred from a custodial to the emergency room with generalized weakness, altered mental status an d lethargy. Per report, the patient, who was nonverbal, had been having decreased p.o. intake for ap proximately 3 weeks prior to her recent hip surgery, which still had alexandra in place and she was not ed to have a significant large ulcer with necrotic tissue on her sacral area. She came in with signs of sepsis and hypotension. Her sepsis protocol was initiated. She was resuscitated with IV fluids, antibiotics, and was found to have a hemoglobin of 8 and received blood transfusions as well. She h as advanced dementia, is not able to give any information, and the information was obtained from the chart during my examination. Past Medical History: CHF, coronary artery disease, hypertension, dementia. Past Surgical History: Hip surgery is noted. Social History: She is a resident of [facility]. Allergies: TO PENICILLIN. Home Medications: Included Norvasc, vitamin C, aspirin, Coreg, Celexa, Plavix, B12, Colace, Aricept, Namenda, multivitamin, Prinivil. Review of Systems: Ten-point review of systems unable to obtain. Physical Examination: General: At the time of my examination; she is asleep, somnolent and responsive only to noxious stim eliazar. HEENT: She is normocephalic. Her sclerae were anicteric. Mucous membranes moist. Oropharynx clear . Neck: Supple without JVD. Chest: Expansion and excursion. Cardiovascular: Regular rate and rhythm. Pulmonary: Clear to auscultation bilaterally. Abdomen: Soft, nontender. Musculoskeletal: Examination of her back and skin included a large approximately 15-20 cm area of ob vious pressure necrosis and stage IV sacral decubitus ulcer with exposed tissue consistent with a sev ere necrosis, pressure effect and infected necrotic sacral decubitus ulcer. Extremities: She had some heel ulcers present as well, but these were fairly dry and did not have an y evidence of necrosis. There were several pressure effect with superficial skin sloughing and heap up of tissue on these areas. Laboratory Data: Her laboratory exam revealed a white blood cell count of 16.8, hemoglobin is 8, hem atocrit 24.7, platelet count was 289, neutrophils 93%. Her bands were 14. PT 13.7, INR 1.25. Her c hemistry showed a sodium of 146, potassium 3.9, chloride 112, carbon dioxide 24, BUN 45, creatinine 2 .45, glucose is 169, lactic acid was 3, calcium 7.9, magnesium 2.7. Total bilirubin 0.7 direct compo nent 0.4, AST 42, ALT 36, alkaline phosphatase is 147. She had negative for influenza A and B, and C OVID negative x2. She had a CT of the head, chest, spine, abdomen, pelvis and C-spine as well, offic ially read as CT head showed no intracranial hemorrhage, hydrocephalus or extra-axial fluid collectio n, moderate generalized brain atrophy. No areas of brain edema or midline shift. The paranasal sinu ses and mastoids are clear. The calvarium is intact. CT C-spine showed no fracture or subluxation. Carotid atherosclerosis, paravertebral soft tissues are normal in thickness. CT chest, abdomen, and pelvis showed no evidence of intraabdominal visceral injury and free fluid, free air within the abov e detailed limitations, aortic atherosclerosis, mild infiltrates seen in the right lung likely pneumo nicole. Thyroid gland is mildly prominent in size. No pericardial fluid. No pneumothorax. There was a suspected soft tissue ulceration in the lower back, superficial sacral region containing fluid and some soft tissue material. Direct inspection is suggested. Moderate lower lumbar degenerative bello es. Left total hip arthroplasty. Assessment And Plan: This is an 82-year-old female, who comes in with signs and symptoms of a pressu re ulcer of the sacrum with infection likely as a source of her sepsis. 1.IV fluid hydration. 2.Antibiotic coverage. 3.Continue resuscitation from a medical standpoint with supportive measures. 4.I have explained the risks, benefits, and alternatives of debridement of her sacral ulcer includin g, but not limited to bleeding, infection, damage to surrounding tissues, need for further operation and procedures to the patient's medical power of contract attorney, who agrees to proceed as indicated. I hav e also addressed that she will likely need a feeding tube and colostomy creation in the future should they continue for care at this point at that level; however, the family has stated that they are con sidering at this point do not resuscitate status and need to have a family meeting over the next week or 2. As such, we will proceed with sacral debridement as described above. Continue medical manage ment. Thank you for this interesting consult. HILL/JAVAN Voice ID: [id number] Report ID: [id number]
== END 2022-12-28 15:41 | disposition hospice, inpatient (51) | DRG 673 ==
LOC: ER 08:44 → ERHOLD 11:11 → 3RD-ICU 17:08 → 4TH 12-27 05:03
PROVIDERS: ADMIT Internal Medicine; ATTEND Internal Medicine
PROC: 30233N1 Transfusion of Nonautologous Red Blood Cells into Peripheral Vein, Percutaneous Approach (ICD-10-PCS; 2022-12-18)
PROC: 0JB70ZZ Excision of Back Subcutaneous Tissue and Fascia, Open Approach (ICD-10-PCS; principal; 2022-12-19 17:45)
DX: T83.511A Infection and inflammatory reaction due to indwelling urethral catheter, initial encounter (principal); A41.51 Sepsis due to Escherichia coli [E. coli]; L89.154 Pressure ulcer of sacral region, stage 4; R65.21 Severe sepsis with septic shock; G93.41 Metabolic encephalopathy; E43 Unspecified severe protein-calorie malnutrition; M72.6 Necrotizing fasciitis; N17.9 Acute kidney failure, unspecified; E87.0 Hyperosmolality and hypernatremia; E87.1 Hypo-osmolality and hyponatremia; I50.32 Chronic diastolic (congestive) heart failure; M86.8X8 Other osteomyelitis, other site; N39.0 Urinary tract infection, site not specified; I11.0 Hypertensive heart disease with heart failure; E11.9 Type 2 diabetes mellitus without complications; I48.91 Unspecified atrial fibrillation; E86.0 Dehydration; I07.1 Rheumatic tricuspid insufficiency; E87.6 Hypokalemia; E16.2 Hypoglycemia, unspecified; E83.39 Other disorders of phosphorus metabolism; I27.20 Pulmonary hypertension, unspecified; D63.8 Anemia in other chronic diseases classified elsewhere; L89.626 Pressure-induced deep tissue damage of left heel; L89.616 Pressure-induced deep tissue damage of right heel; F03.90 Unspecified dementia, unspecified severity, without behavioral disturbance, psychotic disturbance, mood disturbance, and anxiety; I25.10 Atherosclerotic heart disease of native coronary artery without angina pectoris; B96.89 Other specified bacterial agents as the cause of diseases classified elsewhere; B96.4 Proteus (mirabilis) (morganii) as the cause of diseases classified elsewhere; B96.1 Klebsiella pneumoniae [K. pneumoniae] as the cause of diseases classified elsewhere; Z66 Do not resuscitate; Z51.5 Encounter for palliative care; Z88.0 Allergy status to penicillin; Z74.01 Bed confinement status; Z79.82 Long term (current) use of aspirin; Z79.02 Long term (current) use of antithrombotics/antiplatelets; Z68.28 Body mass index [BMI] 28.0-28.9, adult; Z79.899 Other long term (current) drug therapy; Z20.822 Contact with and (suspected) exposure to COVID-19
CPT/HCPCS: 0240U; 36415; 36430; 51702; 70450; 71045; 71250; 72125; 74018; 80048; 80053; 80069; 80076; 80202; 81001; 81003; 82533; 82570; 82805; 82947; 83605; 83735; 83880; 83935; 84100; 84132; 84156; 84300; 84443; 84484; 84550; 85025; 85610; 85730; 86850; 86900; 86901; 87040; 87070; 87075; 87077; 87086; 87088; 87186; 87205; 88304; 93005; 96361; 96365; 96367; 96375; 99285; J0282; J0692; J1644; J1650; J2001; J2185; J2270; J2704; J3010; J3370; J3411; J3475; J3480; J3590; J7030; J7040; J7042; J7050; J7060; J7120; J7799; P9016; U0003